=== PATIENT | male | born 1960 | race Caucasian/White ===

== ENCOUNTER 2018-02-13 14:05 | Inpatient (IN) | payer BC, MEDICARE ==
[2018-02-13] MEDS ORDERED: MORPHINE SULFATE 4 MG/ML SYRINGE IVP STA ×2 (14:38→16:13)
--- NOTE | 2018-02-13 14:44 | ED ---
General Adult HPI - General Chief complaint: Fall Stated complaint: fall Time Seen by Provider: 02/13/18 14:21 Source: patient, RN notes reviewed, old records reviewed Mode of arrival: ambulatory Limitations: no limitations - History of Present Illness Initial comments: 58-year-old male with history of previous CVA with residual left-sided weakness presents status post fall. Patient was transferred without assistance and fall onto his left knee. Complains of left knee pain and left hip pain. He did hit his head. He is not on any anticoagulation. He takes a daily aspirin. There was no loss consciousness. No neck pain. No chest pain or abdominal pain. - Related Data Home Medications Medication Instructions Recorded Confirmed Ammonium Lactate Lotion 1 applic TOPICAL DAILY 11/11/15 02/13/18 [Lac-Hydrin 12% Lotion] Aspirin 325 mg PO DAILY 11/11/15 02/13/18 Ergocalciferol [Vitamin D2 50,000 unit PO TH 11/11/15 02/13/18 (DRISDOL)] Lisinopril [Zestril] 20 mg PO QAM 11/11/15 02/13/18 Magnesium Hydroxide [Milk of 2,400 mg PO DAILY PRN 11/11/15 02/13/18 Magnesia] Meclizine [Antivert] 12.5 mg PO TID PRN 11/11/15 02/13/18 Polyethylene Glycol 3350 [Miralax] 17 gm PO DAILY PRN 11/11/15 02/13/18 Pravastatin Sodium [Pravachol] 40 mg PO HS@2100 11/11/15 02/13/18 Tamsulosin [Flomax] 0.4 mg PO HS 11/11/15 02/13/18 Venlafaxine HCl [Effexor] 37.5 mg PO BID 11/11/15 02/13/18 Acetaminophen Tab [Tylenol Tab] 650 mg PO Q6H PRN 03/24/16 02/13/18 cloNIDine HCL [Catapres] 0.1 mg PO TID PRN 03/24/16 02/13/18 Aloe Lax 1 cap PO DAILY 02/13/18 02/13/18 Aloe Lax 1 cap PO HS PRN 02/13/18 02/13/18 Bisacodyl 5 mg PO TID PRN 02/13/18 02/13/18 Ondansetron HCl [Zofran] 4 mg PO Q6H PRN 02/13/18 02/13/18 Previous Rx's Medication Instructions Recorded Labetalol [Trandate] 300 mg PO BID tab 11/17/15 amLODIPine [Norvasc] 5 mg PO DAILY tab 11/17/15 hydrALAZINE HCL [Apresoline] 50 mg PO TID tab 11/17/15 Allergies Allergy/AdvReac Type Severity Reaction Status Date / Time cashew nut Allergy Unknown Verified 02/13/18 14:34 shellfish derived [Shellfish] Allergy Unknown Verified 02/13/18 14:34 Review of Systems ROS Statement: Those systems with pertinent positive or pertinent negative responses have been documented in the HPI. ROS Other: All systems not noted in ROS Statement are negative. Past Medical History Past Medical History: Asthma, CVA/TIA, Hyperlipidemia, Hypertension Additional Past Medical History / Comment(s): periperal neroupathy marko LE, retinoneuropathy, urine retention, residual to the lt. side, HAS LT FOOT ORTHOTIC/BRACE History of Any Multi-Drug Resistant Organisms: None Reported Past Surgical History: Orthopedic Surgery, Tonsillectomy Additional Past Surgical History / Comment(s): toes amputated rt. foot, cyctoscopy Past Anesthesia/Blood Transfusion Reactions: No Reported Reaction Past Psychological History: No Psychological Hx Reported Smoking Status: Never smoker Past Alcohol Use History: None Reported Past Drug Use History: None Reported - Past Family History Father Family Medical History: Cancer Additional Family Medical History / Comment(s): LEUKEMIA Mother Family Medical History: CVA/TIA, Diabetes Mellitus, Hypertension General Exam Limitations: no limitations General appearance: alert, in no apparent distress Head exam: Present: atraumatic, normocephalic Eye exam: Present: normal appearance, PERRL Neck exam: Present: normal inspection. Absent: tenderness, meningismus Respiratory exam: Present: normal lung sounds bilaterally. Absent: respiratory distress, wheezes Cardiovascular Exam: Present: regular rate, normal rhythm GI/Abdominal exam: Present: soft. Absent: distended, tenderness, guarding Extremities exam: Present: other (Left knee effusion, abrasion on the anterior surface. No deformity. Contraction of the left leg and left arm status post CVA) Psychiatric exam: Present: normal affect, normal mood Skin exam: Present: warm, dry. Absent: cyanosis, diaphoretic Course Vital Signs 02/13/18 02/13/18 14:10 15:47 Temperature 99.2 F Pulse Rate 73 70 Respiratory 16 18 Rate Blood Pressure 134/84 135/76 O2 Sat by Pulse 94 L Oximetry Medical Decision Making - Medical Decision Making 58-year-old male with fall, x-ray reveals a left subcapital fracture. Case discussed with orthopedics, patient will be admitted for evaluation. Internal medicine placed on consult for medical clearance. Preoperative laboratory studies will be obtained, these are pending. - Lab Data Result diagrams: 02/13/18 16:31 02/13/18 16:31 Lab Results 02/13/18 02/13/18 02/13/18 Range/Units 16:31 16:31 16:31 WBC 14.4 H (3.8-10.6) k/uL RBC 4.40 (4.30-5.90) m/uL Hgb 12.8 L (13.0-17.5) gm/dL Hct 38.8 L (39.0-53.0) % MCV 88.1 (80.0-100.0) fL MCH 29.0 (25.0-35.0) pg MCHC 32.9 (31.0-37.0) g/dL RDW 13.6 (11.5-15.5) % Plt Count 196 (150-450) k/uL Neutrophils % 90 % Lymphocytes % 5 % Monocytes % 4 % Eosinophils % 1 % Basophils % 0 % Neutrophils # 12.9 H (1.3-7.7) k/uL Lymphocytes # 0.7 L (1.0-4.8) k/uL Monocytes # 0.6 (0-1.0) k/uL Eosinophils # 0.1 (0-0.7) k/uL Basophils # 0.0 (0-0.2) k/uL PT 10.7 (9.0-12.0) sec INR 1.1 (<1.2) APTT 25.0 (22.0-30.0) sec Sodium 140 (137-145) mmol/L Potassium 4.4 (3.5-5.1) mmol/L Chloride 105 (98-107) mmol/L Carbon Dioxide 27 (22-30) mmol/L Anion Gap 8 mmol/L BUN 24 H (9-20) mg/dL Creatinine 1.22 (0.66-1.25) mg/dL Est GFR (CKD-EPI)AfAm 74 (>60 ml/min/1.73 sqM) Est GFR (CKD-EPI)NonAf 64 (>60 ml/min/1.73 sqM) Glucose 88 (74-99) mg/dL Calcium 9.5 (8.4-10.2) mg/dL Total Bilirubin 1.0 (0.2-1.3) mg/dL AST 62 H (17-59) U/L ALT 43 (21-72) U/L Alkaline Phosphatase 103 (38-126) U/L Total Protein 6.9 (6.3-8.2) g/dL Albumin 3.6 (3.5-5.0) g/dL Disposition Clinical Impression: Fall, Subcapital fracture of left hip Disposition: ADMITTED IP TO THIS [facility] Condition: Stable Is patient prescribed a controlled substance at d/c from ED?: No Referrals: Fredo Adorno MD [Primary Care Provider] - 1-2 days Decision to Admit Reason: Admit from EC Decision Date: 02/13/18 Decision Time: 17:12
--- NOTE | 2018-02-13 15:38 | XR ---
EXAMINATION TYPE: XR Hip LT and AP Pelvis DATE OF EXAM: 02/13/2018 COMPARISON: None HISTORY: Fall, pain TECHNIQUE: AP pelvis and 2 views left hip FINDINGS: There is a subcapital fracture of the left hip. Femoral heads articulate with the acetabulum. Cam deformity is present on the right. The pelvis appea rs intact. Symphysis pubis and sacroiliac joints are normal. IMPRESSION: 1. Subcapital fracture left hip
--- NOTE | 2018-02-13 15:40 | XR ---
EXAMINATION TYPE: XR knee complete LT DATE OF EXAM: 02/13/2018 COMPARISON: None HISTORY: Fall, pain TECHNIQUE: Three-view left knee FINDINGS: There is loss of joint space of the medial lateral compartment joint spaces. Some erosion a long the lateral tibial plateau may be present. Structures are somewhat osteopenic mandible moth-eate n appearance. Joint effusion is not identified. Superficial soft tissue swelling is present. IMPRESSION: 1. Advanced osteoarthritic degenerative change. 2. Osteopenia versus infiltrative process through the marrow. Follow-up is recommended.
--- NOTE | 2018-02-13 15:53 | CT ---
EXAMINATION TYPE: CT brain cspine wo con DATE OF EXAM: 02/13/2018 COMPARISON: CT brain November 11, 2015 HISTORY: Fall injury today with possible headache and neck pain. CT DLP: 1247.5 mGycm. Automated Exposure Control for Dose Reduction was Utilized. TECHNIQUE: CT scan of the head and cervical spine are performed without contrast. FINDINGS: There is no acute intracranial hemorrhage or midline shift identified. There is ventricul ar and sulcal prominence consistent with diffuse cerebral atrophy. There is low-attenuation in the d eep and periventricular white matter consistent with product of chronic small vessel ischemic change. There is persistent hyperdense material filling visualized portion of right maxillary sinus similar to prior. There is interval improvement in remainder paranasal sinus disease from prior study however . Patchy opacity in the posterior aspect bilateral mastoid air cells is new from prior. Cervical spine is visualized in its entirety from C1 through upper thoracic levels and demonstrates s light levoconvex scoliotic curvature coronal images without evidence of acute fracture or dislocation . Demineralization is present. Prevertebral soft tissue appears within normal limits. The C1-C2 vinny culation is within normal limits on the coronal images. Vertebral body heights are maintained. There is mild to moderate multilevel disc space narrowing find ings most prominent at C5-C6 and C6-C7 levels. Posterior spur disc complexes are effacing anterior th ecal sac at these levels on sagittal and axial images. Review of axial images shows marginal spurring and uncovertebral facet degenerative changes contributing to multifocal moderate neural foraminal na rrowing. There is moderate to severe calcified plaque right carotid bulb extending into proximal inte rnal carotid artery and mild calcified plaque in the left internal carotid artery. Thyroid gland is n ormal in size. Motion artifact degradation lung apices is noted. IMPRESSION: 1. There is no acute fracture or dislocation evident in the cervical spine. 2. No acute intracranial hemorrhage or midline shift is seen. Possible bilateral mastoiditis, correla te clinically
[2018-02-13 16:57] LABS: Basophils % (A) 0 %; Eosinophils # (A) 0.1 k/uL (0-0.7); Eosinophils % (A) 1 %; HCT 38.8 % (39.0-53.0); HGB 12.8 gm/dL (13.0-17.5); Lymphocytes # (A) 0.7 k/uL (1.0-4.8); Lymphocytes % (A) 5 %; MCHC 32.9 g/dL (31.0-37.0); MCV 88.1 fL (80.0-100.0); Mean Platelet Volume 6.5; Monocytes # (A) 0.6 k/uL (0-1.0); Monocytes % (A) 4 %; Neutrophils # (A) 12.9 k/uL (1.3-7.7); Neutrophils % (A) 90 %; Platelet Count 196 k/uL (150-450); RDW 13.6 % (11.5-15.5); WBC 14.4 k/uL (3.8-10.6)
[2018-02-13 17:01] LABS: INR 1.1 (<1.2); Prothrombin Time 10.7 sec (9.0-12.0)
[2018-02-13 17:02] LABS: Albumin 3.6 g/dL (3.5-5.0); Calcium 9.5 mg/dL (8.4-10.2); Potassium 4.4 mmol/L (3.5-5.1); Total Protein 6.9 g/dL (6.3-8.2)
[2018-02-13] MEDS ORDERED: NALOXONE 0.4 MG/ML 1 ML VIAL IV PRN (17:09)
[2018-02-13] MEDS: SODIUM CHLORIDE 0.9% 1,000 ML IV SCH (19:49)
[2018-02-13] MEDS: MORPHINE SULFATE 4 MG/ML SYRINGE IV PRN (20:36)
[2018-02-13] MEDS ORDERED: ACETAMINOPHEN TAB 325 MG TAB PO PRN (21:24)
[2018-02-13] MEDS ORDERED: MECLIZINE 12.5 MG TAB PO PRN (21:24)
[2018-02-13] MEDS ORDERED: cloNIDine HCL 0.1 MG TAB PO PRN (21:24)
[2018-02-13] MEDS ORDERED: ONDANSETRON 4 MG TAB PO PRN (21:24)
[2018-02-13] MEDS ORDERED: POLYETHYLENE GLYCOL 3350 17 GM POWD.PACK PO PRN (21:24)
[2018-02-13] MEDS: LABETALOL 100 MG TAB PO SCH (21:52)
[2018-02-13] MEDS: TAMSULOSIN 0.4 MG CAP.ER.24H PO SCH (21:52)
[2018-02-13] MEDS: hydrALAZINE HCL 50 MG TAB PO SCH (21:52)
[2018-02-13] MEDS: VENLAFAXINE HCL 37.5 MG TAB PO SCH (21:52)
[2018-02-14] MEDS: MORPHINE SULFATE 4 MG/ML SYRINGE IV PRN ×3 (03:16→10:58)
[2018-02-14] MEDS: SODIUM CHLORIDE 0.9% 1,000 ML IV SCH ×2 (07:39→21:01)
[2018-02-14] MEDS: VENLAFAXINE HCL 37.5 MG TAB PO SCH ×2 (07:41→22:17)
[2018-02-14] MEDS: LABETALOL 100 MG TAB PO SCH ×2 (07:41→21:02)
[2018-02-14] MEDS: LISINOPRIL 20 MG TAB PO SCH (07:42)
[2018-02-14] MEDS: amLODIPine 5 MG TAB PO SCH (07:42)
--- NOTE | 2018-02-14 08:46 | P.HPOR ---
History of Present Illness H&P Date: 02/14/18 This is a 58 year-old male who has a past medical history significant for CVA with left-sided weakness. Family is present at bedside. Patient states that he fell while transferring yesterday. Patient's family states that he usually has a caregiver transfer him, but has been trying to transfer by himself lately. The patient's family states that he has 24-hour care at home. Patient denies any head injury or loss of conciousness. Patient is not on any anticoagulation. Patient's past medical history is significant for asthma, hypertension and hyperlipidemia. Patient denies any fever/chills, shortness of breath, chest pain or abdominal pain. Review of Systems See HPI. Past Medical History Past Medical History: Asthma, CVA/TIA, Hyperlipidemia, Hypertension Additional Past Medical History / Comment(s): periperal neroupathy marko LE, retinoneuropathy, urine retention, residual to the lt. side, HAS LT FOOT ORTHOTIC/BRACE History of Any Multi-Drug Resistant Organisms: None Reported Past Surgical History: Orthopedic Surgery, Tonsillectomy Additional Past Surgical History / Comment(s): toes amputated rt. 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 [employer] Smoking Status: Never smoker Past Alcohol Use History: None Reported Past Drug Use History: None Reported - Past Family History Father Family Medical History: Cancer Additional Family Medical History / Comment(s): LEUKEMIA Mother Family Medical History: CVA/TIA, Diabetes Mellitus, Hypertension Medications and Allergies Home Medications Medication Instructions Recorded Confirmed Type Ammonium Lactate Lotion 1 applic TOPICAL DAILY 11/11/15 02/13/18 History [Lac-Hydrin 12% Lotion] Aspirin 325 mg PO DAILY 11/11/15 02/13/18 History Ergocalciferol [Vitamin D2 50,000 unit PO TH 11/11/15 02/13/18 History (DRISDOL)] Lisinopril [Zestril] 20 mg PO QAM 11/11/15 02/13/18 History Magnesium Hydroxide [Milk of 2,400 mg PO DAILY PRN 11/11/15 02/13/18 History Magnesia] Meclizine [Antivert] 12.5 mg PO TID PRN 11/11/15 02/13/18 History Polyethylene Glycol 3350 [Miralax] 17 gm PO DAILY PRN 11/11/15 02/13/18 History Pravastatin Sodium [Pravachol] 40 mg PO HS@2100 11/11/15 02/13/18 History Tamsulosin [Flomax] 0.4 mg PO HS 11/11/15 02/13/18 History Venlafaxine HCl [Effexor] 37.5 mg PO BID 11/11/15 02/13/18 History Labetalol [Trandate] 300 mg PO BID tab 11/17/15 02/13/18 Rx amLODIPine [Norvasc] 5 mg PO DAILY tab 11/17/15 02/13/18 Rx hydrALAZINE HCL [Apresoline] 50 mg PO TID tab 11/17/15 02/13/18 Rx Acetaminophen Tab [Tylenol Tab] 650 mg PO Q6H PRN 03/24/16 02/13/18 History cloNIDine HCL [Catapres] 0.1 mg PO TID PRN 03/24/16 02/13/18 History Aloe Lax 1 cap PO DAILY 02/13/18 02/13/18 History Aloe Lax 1 cap PO HS PRN 02/13/18 02/13/18 History Bisacodyl 5 mg PO TID PRN 02/13/18 02/13/18 History Ondansetron HCl [Zofran] 4 mg PO Q6H PRN 02/13/18 02/13/18 History Allergies Allergy/AdvReac Type Severity Reaction Status Date / Time cashew nut Allergy Unknown Verified 02/13/18 14:34 shellfish derived [Shellfish] Allergy Unknown Verified 02/13/18 14:34 Physical Examination On exam patient is lying comfortably in bed in no acute distress. The left lower extremity is shortened and externally rotated. Skin is intact. There is no erythema or ecchymosis. Calf is soft and nontender to palpation. Dorsalis pedis pulses 2+. Left lower extremity is warm and well perfused. Head is normocephalic and atraumatic. Exams of bilateral upper extremties and right lower extremity are within normal limits. Results X-rays of the left hip and pelvis show a displaced subcapital fracture of the left femur. - Labs Labs: Abnormal Lab Results - Last 24 Hours (Table) 02/13/18 02/13/18 Range/Units 16:31 16:31 WBC 14.4 H (3.8-10.6) k/uL Hgb 12.8 L (13.0-17.5) gm/dL Hct 38.8 L (39.0-53.0) % Neutrophils # 12.9 H (1.3-7.7) k/uL Lymphocytes # 0.7 L (1.0-4.8) k/uL BUN 24 H (9-20) mg/dL AST 62 H (17-59) U/L H & H 02/13/18 Range/Units 16:31 Hgb 12.8 L (13.0-17.5) gm/dL Hct 38.8 L (39.0-53.0) % Coagulation 02/13/18 Range/Units 16:31 INR 1.1 (<1.2) Result Diagrams: 02/13/18 16:31 02/13/18 16:31 Assessment and Plan Assessment: Asthma CVA with left hemiparesis Hyperlipidemia Hypertension (1) Fall Current Visit: Yes Status: Acute Code(s): W19.XXXA - UNSPECIFIED FALL, INITIAL ENCOUNTER SNOMED Code(s): 2592997 (2) Subcapital fracture of left hip Current Visit: Yes Status: Acute Code(s): S72.012A - UNSP INTRACAPSULAR FRACTURE OF LEFT FEMUR, INIT FOR CLOS FX SNOMED Code(s): 091312163 Plan: 1. Rest and ice the left hip. 2. Continue pain control. 3. NPO. 4. Left hip hemiarthroplasty scheduled for today pending medical clearance and consent.
[2018-02-14] MEDS: hydrALAZINE HCL 50 MG TAB PO SCH ×3 (10:30→22:16)
--- NOTE | 2018-02-14 11:57 | P.CONS ---
History of Present Illness - Reason for Consult Consult date: 02/14/18 Medical clearance for orthopedic surgery - History of Present Illness This is a 58-year-old male patient of Dr. Adorno with past medical history of stroke approximately 4 years ago with residual left-sided weakness, hypertension, hyperlipidemia, benign prostatic hypertrophy, depression. He also has history of diabetes in the past but due to he lost does not require treatment. Patient has paid caregivers 24 hours a day and usually requires assistance in transfers the patient has been trying to do these on his own without waiting for help. He was transferring from bed to the wheelchair and is now following landing on his left hip and patient was transferred to [facility] emergency center for evaluation. X-ray of left knee showed advanced osteoarthritic degenerative changes. Osteopenia versus infiltrative process in the marrow. CAT scan of the brain and cervical spine reveals no acute fracture dislocation evident cervical spine. No acute intracranial hemorrhage or midline shift. Possible bilateral mastoiditis. X-ray of the left hip and pelvis show subcapital fracture left hip. White count 14.4, hemoglobin 12.8. BUN 24 and creatinine 1.22, blood sugar 88. Patient was admitted to the [facility] floor under the care of orthopedics with plan for left hip hemiarthroplasty today. Patient denies any chest pain, shortness of breath , and nausea or vomiting. There is no loss of consciousness with fall. Review of Systems All systems: negative Constitutional: Denies chills, Denies fever, Denies lethargy, Denies malaise, Denies poor appetite, Denies weight loss Eyes: denies blurred vision, denies pain Ears, nose, mouth and throat: Denies dysphagia, Denies headache, Denies hoarseness, Denies sore throat, Denies vertigo Cardiovascular: Denies chest pain, Denies decreased exercise tolerance, Denies dyspnea on exertion, Denies shortness of breath Respiratory: Denies cough, Denies dyspnea, Denies excessive sputum, Denies hemoptysis, Denies home oxygen, Denies wheezing Gastrointestinal: Denies abdominal pain, Denies diarrhea, Denies loss of appetite, Denies melena, Denies nausea, Denies vomiting Genitourinary: Denies dysuria Musculoskeletal: Reports frequent falls, Reports gait dysfunction, Reports muscle weakness, Denies myalgias Integumentary: Denies pruritus, Denies rash, Denies wounds Neurological: Reports gait dysfunction, Denies change in mentation, Denies confusion, Denies numbness, Denies weakness Psychiatric: Denies anxiety, Denies depression Endocrine: Denies fatigue, Denies weight change Past Medical History Past Medical History: CVA/TIA, Hyperlipidemia, Hypertension Additional Past Medical History / Comment(s): periperal neroupathy marko LE, retinoneuropathy, urine retention, residual to the lt. 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 [employer] Smoking Status: Never smoker Past Alcohol Use History: None Reported Additional Past Alcohol Use History / Comment(s): Patient is a lifelong nonsmoker. He denies any marijuana, street drug use or alcohol use. He is does not have any children. 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 He currently has [address] Past Drug Use History: None Reported - Past Family History Father Family Medical History: Cancer Additional Family Medical History / Comment(s): Father at age 41 from leukemia. Mother Family Medical History: CVA/TIA, Diabetes Mellitus, Hypertension Additional Family Medical History / Comment(s): Mother in her 70s from pneumonia. Sister(s) Additional Family Medical History / Comment(s): Patient has 2 sisters with no major medical problems. Patient does not have any brothers, no children. Medications and Allergies Home Medications Medication Instructions Recorded Confirmed Type Ammonium Lactate Lotion 1 applic TOPICAL DAILY 11/11/15 02/13/18 History [Lac-Hydrin 12% Lotion] Aspirin 325 mg PO DAILY 11/11/15 02/13/18 History Ergocalciferol [Vitamin D2 50,000 unit PO TH 11/11/15 02/13/18 History (DRISDOL)] Lisinopril [Zestril] 20 mg PO QAM 11/11/15 02/13/18 History Magnesium Hydroxide [Milk of 2,400 mg PO DAILY PRN 11/11/15 02/13/18 History Magnesia] Meclizine [Antivert] 12.5 mg PO TID PRN 11/11/15 02/13/18 History Polyethylene Glycol 3350 [Miralax] 17 gm PO DAILY PRN 11/11/15 02/13/18 History Pravastatin Sodium [Pravachol] 40 mg PO HS@2100 11/11/15 02/13/18 History Tamsulosin [Flomax] 0.4 mg PO HS 11/11/15 02/13/18 History Venlafaxine HCl [Effexor] 37.5 mg PO BID 11/11/15 02/13/18 History Labetalol [Trandate] 300 mg PO BID tab 11/17/15 02/13/18 Rx amLODIPine [Norvasc] 5 mg PO DAILY tab 11/17/15 02/13/18 Rx hydrALAZINE HCL [Apresoline] 50 mg PO TID tab 11/17/15 02/13/18 Rx Acetaminophen Tab [Tylenol Tab] 650 mg PO Q6H PRN 03/24/16 02/13/18 History cloNIDine HCL [Catapres] 0.1 mg PO TID PRN 03/24/16 02/13/18 History Aloe Lax 1 cap PO DAILY 02/13/18 02/13/18 History Aloe Lax 1 cap PO HS PRN 02/13/18 02/13/18 History Bisacodyl 5 mg PO TID PRN 02/13/18 02/13/18 History Ondansetron HCl [Zofran] 4 mg PO Q6H PRN 02/13/18 02/13/18 History Allergies Allergy/AdvReac Type Severity Reaction Status Date / Time cashew nut Allergy Unknown Verified 02/13/18 14:34 shellfish derived [Shellfish] Allergy Unknown Verified 02/13/18 14:34 Physical Exam Vitals: Vital Signs Temp Pulse Pulse Resp BP BP Pulse Ox 02/14/18 07:00 98.1 F 77 16 113/70 95 02/14/18 00:27 97.6 F 70 16 128/75 91 L 02/13/18 20:00 98.2 F 70 18 132/83 97 02/13/18 18:06 97.2 F L 18 97 02/13/18 17:51 99.2 F 76 18 117/63 93 L 02/13/18 17:29 76 18 117/63 93 L 02/13/18 15:47 70 18 135/76 94 L 02/13/18 14:10 99.2 F 73 16 134/84 Intake and Output 02/13/18 02/14/18 02/14/18 22:59 06:59 14:59 Intake Total 250 675 Balance 250 675 Intake: Amount of Fluid Infused ( 250 ml) Intake, IV Titration 675 Amount Sodium Chloride 0.9% 1, 675 000 ml @ 75 mls/hr IV . [id number] RAFFY Rx#:[id number] Other: Voiding Method Urinal Urinal # Voids 1 3 Gen: This is a 67-year-old male. He is in bed and appears to be comfortable and in no acute distress. HEENT: Head is atraumatic, normocephalic. Pupils equal, round. Sclerae is anicteric. NECK: Supple. No JVD. No lymphadenopathy. No thyromegaly. LUNGS: Clear to auscultation. No wheezes or rhonchi. No intercostal retractions. HEART: Regular rate and rhythm. No murmur. ABDOMEN: Soft. Bowel sounds are present. No masses. No tenderness. EXTREMITIES: The patient is on his back with both knees bent. Dorsalis pedis palpable bilaterally. NEUROLOGICAL: Patient is awake, alert and oriented x3. Weakness noted to the left upper and lower extremities. Results CBC & Chem 7: 02/13/18 16:31 02/13/18 16:31 Labs: Abnormal Lab Results - Last 24 Hours (Table) 02/13/18 02/13/18 Range/Units 16:31 16:31 WBC 14.4 H (3.8-10.6) k/uL Hgb 12.8 L (13.0-17.5) gm/dL Hct 38.8 L (39.0-53.0) % Neutrophils # 12.9 H (1.3-7.7) k/uL Lymphocytes # 0.7 L (1.0-4.8) k/uL BUN 24 H (9-20) mg/dL AST 62 H (17-59) U/L Assessment and Plan Plan: 1. Acute subcapital fracture left hip with only minimal trauma most likely pathologic due to osteopenia. Orthopedics is planning for a left hemiarthroplasty today. Patient is cleared medically for surgical intervention. Continue pain management, incentive spirometry to reduce incidence of atelectasis and hospital-acquired pneumonia. 2. Hypertension. Continue Norvasc 5 mg daily, Catapres as needed, hydralazine 50 mg 3 times daily, labetalol 300 mg twice daily, lisinopril 20 mg daily. 3. Hyperlipidemia. Continue pravastatin 40 mg at bedtime. 4. History of stroke with residual left-sided weakness. Patient is only on aspirin 325 mg for this. 5. Benign prostatic hypertrophy. Continue Flomax 0.4 mg at bedtime. 6. Chronic constipation. Continue MiraLAX. 7. DVT prophylaxis to be determined by orthopedics. 8. GI prophylaxis. Pepcid. Patient will be admitted to the hospital for a minimum of 2 night stay. Discharge plan: To be determined Impression and plan of care have been directed as dictated by the signing physician. Anila Mcconnell nurse practitioner acting as scribe for signing physician.
[2018-02-14] MEDS ORDERED: IV FLUID CONTINUATION 150 ML IV ONE (13:53)
[2018-02-14] MEDS ORDERED: MORPHINE SULFATE 4 MG/ML SYRINGE IVP ONE (14:25)
[2018-02-14] MEDS ORDERED: PROPOFOL 10 MG/ML 20 ML VIAL IV ONE (14:55)
[2018-02-14] MEDS ORDERED: TRANEXAMIC ACID 1,000 MG/10 ML VIAL ONE (14:55)
[2018-02-14] MEDS ORDERED: SUCCINYLCHOLINE CHLORIDE 100 MG/5 ML SYR IV ONE (14:55)
[2018-02-14] MEDS ORDERED: GLYCOPYRROLATE 0.2 MG/ML 2 ML VIAL ONE (14:55)
[2018-02-14] MEDS ORDERED: ePHEDrine SULFATE/0.9% NACL/PF 50 MG/5 ML SYRINGE IV ONE (14:55)
[2018-02-14] MEDS ORDERED: fentaNYL (PF) 50 MCG/ML 2 ML AMP ONE (14:55)
[2018-02-14] MEDS ORDERED: ROCURONIUM BROMIDE 10 MG/ML 10 ML VIAL IV ONE (14:55)
[2018-02-14] MEDS ORDERED: PHENYLEPHRINE-0.9% NACL SYG 1 MG/10 ML SYRINGE ONE (14:55)
[2018-02-14] MEDS ORDERED: ONDANSETRON 4 MG/2 ML VIAL ONE (14:55)
[2018-02-14] MEDS ORDERED: LIDOCAINE 1% INJ 10MG/ML (20 ML MDV) ONE (14:55)
[2018-02-14] MEDS ORDERED: MIDAZOLAM 2 MG/2 ML VIAL ONE (14:55)
[2018-02-14] MEDS ORDERED: SODIUM CHLORIDE 0.9% 100 ML BAG ONE (14:55)
[2018-02-14] MEDS ORDERED: SODIUM CHLORIDE 0.9% 100 ML with ceFAZolin 2,000 MG IV ONE ×2 (15:08)
[2018-02-14] MEDS ORDERED: LACTATED RINGERS 1,000 ML IV ONE ×3 (15:08→18:09)
[2018-02-14] MEDS ORDERED: TRANEXAMIC ACID 1,000 MG in SODIUM CHLORIDE 0.9% 50 ML IVPB ONE ×4 (15:45)
[2018-02-14] MEDS ORDERED: ceFAZolin 3,000 MG in SODIUM CHLORIDE 0.9% IRRIGATIO 3,000 ML IRRIGATION ONE (15:46)
--- NOTE | 2018-02-14 17:14 | P.OP ---
Date of Procedure: 02/14/18 Procedure(s) Performed: PREOPERATIVE DIAGNOSIS: Left hip femoral neck displaced fracture and greater trochanteric comminuted displaced fracture POSTOPERATIVE DIAGNOSIS: Left hip femoral neck displaced fracture and greater trochanteric comminuted displaced fracture OPERATION: 1. Left hip cemented unipolar hemiarthroplasty. 2. Open reduction and internal fixation greater trochanter fracture, suture fixation ANESTHESIA: Spinal ESTIMATED BLOOD LOSS: 200 ml. [employer]: Catalina Gambino PA-C (assistance with: patient positioning, retraction, exposure, hemostasis, leg positioning, implantation, irrigation, closure, dressing) COMPLICATIONS: None apparent. COMPONENTS IMPLANTED: Shaunna LDFx cemented femoral stem; unipolar femoral head; neck extension augments as needed. INDICATIONS: Drew is a 58 year old male with a history of falling and sustaining a femoral neck fracture and a comminuted greater trochanteric fracture. He has multiple medical problems including a history of stroke affecting his left side. He is basically a non-ambulator. I have recommended surgical treatment with a cemented unipolar hemiarthroplasty. I have discussed this procedure in detail and explained the potential risks and complications as being inclusive of, but not limited to: Bleeding, infection, scarring, discomfort, blood vessel and/or nerve damage, limb length inequality, gait disturbance, blood clot, pulmonary embolism, , and other risks. The consent form has been signed. PROCEDURE: After appropriate consent was obtained, the patient was taken to the operating room and placed in supine position. [] anesthetic was administered and after confirmation of adequate anesthesia, the patient was placed into the lateral decubitus position with the affected side up. Care was taken to make sure that all pressure points were adequately padded and a Giovanni hip positioner was utilized for positioning. The hip was prepped and draped in the usual aseptic fashion using a combination of Chloraprep and alcohol. Ioban drape was used for the case and the patient received intravenous antibiotics prior to the incision. The incision was created directly over the greater trochanter and carried slightly posteriorly for a posterior approach to the hip. The incision was then deepened down to subcutaneous tissue and fascia saul. Fascia saul was split in line with the incision and split proximally along the fibers of the gluteus josephine. The underlying fibers of the muscle were teased apart using finger dissection and bleeding vessels were picked up and coagulated. Retractor was then placed posteriorly consisting of a blunt Latia. Note was made of comminuted somewhat displaced greater trochanteric fracture among fairly significant hematoma. The hematoma was removed. Due to the comminution, I did not feel that a claw-type metallic fixation or screw fixation would be adequate area therefore considering this patient's history of non-ambulation, I decided to perform a suture repair at the end of the case of the tendon to the bone. Dissection then proceeded. The short external rotators and capsule were exposed and good visualization of the attachment of the external rotators to the femur was established. The short external rotators and capsule were released using electrocautery from their femoral attachments. A hockey stick shaped incision was created in the capsule. Joint fluid and hemarthrosis was evacuated and the patient's hip was internally rotated to expose the fracture site. The femoral neck cut was created approximately 1 cm superior to the lesser trochanter using a reciprocating saw. The femoral head and neck fragment was removed and visualization and palpation of the acetabular vault showed intact hyaline cartilage with no bone exposure or significant degeneration. Attention was then directed back to the proximal femur. Retractors were placed around the proximal femur and box osteotome was used followed by canal finder and trochanteric reamer. Cylindrical reaming was performed. Progressive broaching was then performed starting with a #10 broach and progressing final size, in a position of 10-15 degrees anteversion. [place] anteversion was within 5 degrees of stem position. The final size broach had excellent fit and fill of the patient's metaphysis and diaphysis. Calcar planing was performed. Trial reduction was then performed starting with appropriately sized femoral head and various neck extensions to evaluate stability, limb length equality, and soft tissue tension. Once these parameters were satisfactory, the corresponding final components were then called for. Trial components were removed. The femoral canal was sized for the centralizer and bone plug. Once the bone plug had been inserted distal to the planned length of the femoral component, the canal was pulse lavaged and brushed to remove any unstable bone. It was then dried with a lap sponge. Cement was mixed under vacuum conditions to decrease porosity and inserted into a cement gun. Distal centralizer was placed onto the femoral component with a bit of cement. The cement was allowed to reach a slightly doughy consistency and then the canal was filled retrograde with the cement gun. Thumb pressurization was performed three times. The femoral component was then inserted with the previously determined degree of anteversion. Excess cement was removed before it hardened completely. The femoral head was then impacted onto the Escobar taper. Blood and debris were removed from the acetabular socket and the hip was then reduced and checked for stability, limb length and soft tissue tension. These parameters were found to be satisfactory; the wound was then thoroughly irrigated with normal saline. Repair of the greater trochanteric fracture then proceeded with a combination of through bone #2 FiberWire sutures as well as #2 FiberWire sutures through the tendon just proximal to its bony attachment on the greater tuberosity and through the bone of the greater trochanter on the distal side. Fairly good approximation of the fragments was accomplished with approximately 4 sutures. Irricept irrigation was used. Final hemostasis was obtained using electrocautery and IV tranexamic acid, 1 gram prior to incision and another 1 gram at the start of closure. Closure of the capsule was performed meticulously using #3 Vicryl suture. Four [id number] sutures were placed in the posterior capsule along with repair of the external rotators. The fascia saul was then repaired using combination of #3 Vicryl suture in interrupted fashion and Quill and running fashion. 2-0 Vicryl suture was used for the subcutaneous tissues and 3-0 Quill for the skin. Dermabond or Steri-Strips were then applied. The patient tolerated the procedure well. There were no complications and the wound bed was dry and there was no need for drain placement. Sterile dressing was then applied and the patient was carefully removed from the operating room table, placed on the stretcher and was taken to the recovery room in stable condition. Sponge and needle counts were correct.
[2018-02-14] MEDS ORDERED: ONDANSETRON 4 MG/2 ML VIAL IVP PRN (17:24)
[2018-02-14] MEDS ORDERED: HYDROmorphone 1 MG/ML 1 ML SYRINGE IVP PRN ×3 (17:24)
[2018-02-14] MEDS ORDERED: NALOXONE 0.4 MG/ML 1 ML VIAL IV PRN (17:24)
[2018-02-14] MEDS ORDERED: MAGNESIUM HYDROXIDE 2,400 MG/10 ML CUP PO PRN (17:24)
[2018-02-14] MEDS ORDERED: WARFARIN 5 MG TAB PO ONE (18:00)
--- NOTE | 2018-02-14 18:35 | XR ---
EXAMINATION TYPE: XR Hip Limited LT DATE OF EXAM: 02/14/2018 COMPARISON: 02/13/2018 HISTORY: Left hip surgery TECHNIQUE: Single view FINDINGS: There is a new left hip prosthesis. Components appear in anatomic position. IMPRESSION: No complicating process seen.
[2018-02-14] MEDS ORDERED: DEXTROSE 50%-WATER 50 ML SYRINGE IVP ONE (18:54)
[2018-02-14 19:00] LABS: Glucose,Whole Blood 81 mg/dL (75-99)
[2018-02-14 19:30] LABS: Basophils # (A) 0.1 k/uL (0-0.2); Basophils % (A) 0 %; Eosinophils # (A) 0.5 k/uL (0-0.7); Eosinophils % (A) 4 %; HCT 33.2 % (39.0-53.0); Lymphocytes # (A) 0.7 k/uL (1.0-4.8); Lymphocytes % (A) 6 %; MCV 91.1 fL (80.0-100.0); Mean Platelet Volume 6.4; Monocytes # (A) 0.5 k/uL (0-1.0); Monocytes % (A) 4 %; Neutrophils # (A) 11.1 k/uL (1.3-7.7); Neutrophils % (A) 86 %; Platelet Count 176 k/uL (150-450); RBC 3.65 m/uL (4.30-5.90); RDW 13.9 % (11.5-15.5); WBC 12.9 k/uL (3.8-10.6)
--- NOTE | 2018-02-14 19:39 | XR ---
EXAMINATION TYPE: XR chest 1V DATE OF EXAM: 02/14/2018 COMPARISON: 11/11/2015 HISTORY: Postop. Short of breath TECHNIQUE: Single frontal view of the chest is obtained. FINDINGS: There is no heart failure nor confluent pneumonic infiltrate. Costophrenic angles are baltazar r. Heart size is normal. There are chest leads. Bony thorax appears intact. IMPRESSION: No active cardiopulmonary disease. No change.
[2018-02-14 19:54] LABS: Glucose,Whole Blood 78 mg/dL (75-99)
[2018-02-14] MEDS: PRAVASTATIN SODIUM 40 MG TAB PO SCH (22:15)
[2018-02-14] MEDS: TAMSULOSIN 0.4 MG CAP.ER.24H PO SCH (22:16)
[2018-02-14] MEDS: SENNOSIDES-DOCUSATE SODIUM 1 EACH TAB PO SCH (22:16)
[2018-02-14] MEDS: ceFAZolin IN SWFI 2 GM/20 ML SYRINGE IVP SCH (23:19)
[2018-02-15] MEDS: HYDROcodone/APAP 5-325MG 1 EACH TAB PO PRN ×4 (04:28→20:44)
[2018-02-15 06:54] LABS: Basophils % (A) 0 %; Eosinophils # (A) 0.4 k/uL (0-0.7); Eosinophils % (A) 4 %; HCT 32.2 % (39.0-53.0); HGB 10.6 gm/dL (13.0-17.5); Lymphocytes # (A) 0.8 k/uL (1.0-4.8); Lymphocytes % (A) 7 %; MCH 30.2 pg (25.0-35.0); MCV 91.5 fL (80.0-100.0); Mean Platelet Volume 6.7; Monocytes # (A) 0.6 k/uL (0-1.0); Monocytes % (A) 5 %; Neutrophils # (A) 8.9 k/uL (1.3-7.7); Neutrophils % (A) 82 %; Platelet Count 133 k/uL (150-450); RBC 3.51 m/uL (4.30-5.90); RDW 13.9 % (11.5-15.5); WBC 10.8 k/uL (3.8-10.6)
[2018-02-15 06:58] LABS: INR 1.3 (<1.2); Prothrombin Time 12.1 sec (9.0-12.0)
[2018-02-15] MEDS: ceFAZolin IN SWFI 2 GM/20 ML SYRINGE IVP SCH (07:42)
[2018-02-15] MEDS: LISINOPRIL 20 MG TAB PO SCH (07:45)
[2018-02-15] MEDS: FAMOTIDINE 20 MG TAB PO SCH (07:45)
--- NOTE | 2018-02-15 08:30 | P.PN ---
Subjective Progress Note Date: 02/15/18 Principal diagnosis: Status post hemiarthroplasty left hip. This is a 58-year-old male admitted for left hip fracture. He has extensive medical history including CVA with left-sided hemiparesis. He is a nonambulator. He lives at home with 24-hour nursing care. He was taken to surgery on 02/14/2018 for hemiarthroplasty of the left hip. The procedures performed without complication. He did have some hypotension intraoperatively and in the recovery room which is now resolved. Patient's doing well on postoperative day #1. he is resting soundly. His mild disabilities teacher is at bedside. Vital signs and labs are stable. Objective - Vital Signs Vital signs: Vital Signs Temp 98.9 F 02/15/18 07:59 Pulse 96 02/15/18 07:59 Resp 18 02/15/18 07:59 BP 131/76 02/15/18 07:59 Pulse Ox 89 L 02/15/18 07:59 Intake & Output 02/14/18 02/15/18 02/15/18 18:59 06:59 18:59 Intake Total 2951 Output Total 200 1405 Balance 2751 -1405 Intake: IV 2951 Output: Urine 1405 Straight 900 Estimated Blood Loss 200 Other: Voiding Method Urinal Urinal Urinal # Voids 1 - Exam This is a pleasant 58-year-old male in no acute distress. He does not communicate during exam. He will not open his eyes during exam. His mild disabilities teacher is a resident at bedside. Exam of the left hip reveals that his incision has no erythema. Dermabond tape is intact with no drainage. Pedal pulse is +1/4. Capillary refill is less than 3 seconds. - Labs CBC & Chem 7: 02/15/18 06:17 02/13/18 16:31 Labs: Abnormal Lab Results - Last 24 Hours (Table) 02/14/18 02/15/18 02/15/18 Range/Units 18:53 06:17 06:17 WBC 12.9 H 10.8 H (3.8-10.6) k/uL RBC 3.65 L 3.51 L (4.30-5.90) m/uL Hgb 11.0 L 10.6 L (13.0-17.5) gm/dL Hct 33.2 L 32.2 L (39.0-53.0) % Plt Count 133 L (150-450) k/uL Neutrophils # 11.1 H 8.9 H (1.3-7.7) k/uL Lymphocytes # 0.7 L 0.8 L (1.0-4.8) k/uL PT 12.1 H (9.0-12.0) sec INR 1.3 H (<1.2) Assessment and Plan (1) History of CVA with residual deficit Current Visit: Yes Status: Acute Code(s): I69.30 - UNSPECIFIED SEQUELAE OF CEREBRAL INFARCTION SNOMED Code(s): 568232020 (2) Fall Current Visit: Yes Status: Acute Code(s): W19.XXXA - UNSPECIFIED FALL, INITIAL ENCOUNTER SNOMED Code(s): 3336391 (3) Subcapital fracture of left hip Current Visit: Yes Status: Acute Code(s): S72.012A - UNSP INTRACAPSULAR FRACTURE OF LEFT FEMUR, INIT FOR CLOS FX SNOMED Code(s): 986323682 (4) H/O ETOH abuse Current Visit: No Status: Acute Code(s): Z87.898 - PERSONAL HISTORY OF OTHER SPECIFIED CONDITIONS SNOMED Code(s): 851768314 (5) Hypotension Current Visit: No Status: Acute Code(s): I95.9 - HYPOTENSION, UNSPECIFIED SNOMED Code(s): 89440908 Plan: The clinical findings are discussed with the patient and his mild disabilities teacher. We will have social work talk to the mild disabilities teacher and family regarding placement postoperatively. He may not be a great rehab candidate since he was unable to transfer himself prior to his fall. He may need extended care. We will continue to follow and plan for discharge when cleared medically and placement arranged.
[2018-02-15] MEDS: amLODIPine 5 MG TAB PO SCH (09:54)
[2018-02-15] MEDS: VENLAFAXINE HCL 37.5 MG TAB PO SCH ×2 (09:54→21:58)
[2018-02-15] MEDS: hydrALAZINE HCL 50 MG TAB PO SCH ×3 (09:54→20:44)
[2018-02-15] MEDS: LABETALOL 100 MG TAB PO SCH ×2 (09:54→20:44)
[2018-02-15] MEDS: SODIUM CHLORIDE 0.9% 1,000 ML IV SCH (11:21)
--- NOTE | 2018-02-15 11:25 | P.CNPUL ---
History of Present Illness Consult date: 02/15/18 Requesting physician: Wilner Montero Reason for consult: hypoxemia Chief complaint: Status post fall with left hip and knee pain History of present illness: This is a pleasant 58-year-old gentleman who has a history of CVA with residual left-sided weakness, hyperlipidemia, hypertension. He had been transferring unassisted and had taken a fall onto his left knee. He presented here with complaints of left knee and left hip pain. No loss of consciousness. No head trauma. CT of the head revealed no acute fracture or dislocation evident in the cervical spine. There is no acute intracranial hemorrhage or midline shift. Left hip x-ray revealed a subcapital fracture. No fracture of the knee. On 02/14/2018 he had undergone an open reduction internal fixation of the greater trochanter fracture. Last evening the patient had issues with hypoxemia and hypotension and an A team was called. He was placed on a Ventimask and his saturations were in the 90s. This was quite transient and the patient recovered. He is seen today in consultation for the same. He is awake and alert in no acute distress. He is currently maintaining O2 saturations in the high 80s low 90s. He's been refusing to wear any oxygen. He denies any shortness of breath, cough or congestion. He did have a T-max of 101.7 axillary. Chest x-ray reveals no acute cardiopulmonary disease. White count 10.8. Hemoglobin 10.6. INR 1.3. He is continued on 0.9 normal saline at 75 ML's per hour. Anticoagulated with warfarin. Review of Systems 14 point review of system was conducted. All negative other than as mentioned in the HPI. Past Medical History Past Medical History: CVA/TIA, Hyperlipidemia, Hypertension Additional Past Medical History / Comment(s): periperal neroupathy marko LE, retinoneuropathy, urine retention, residual to the lt. 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 [employer] Smoking Status: Never smoker Past Alcohol Use History: None Reported Additional Past Alcohol Use History / Comment(s): Patient is a lifelong nonsmoker. He denies any marijuana, street drug use or alcohol use. He is does not have any children. 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 He currently has [address] Past Drug Use History: None Reported - Past Family History Father Family Medical History: Cancer Additional Family Medical History / Comment(s): Father at age 41 from leukemia. Mother Family Medical History: CVA/TIA, Diabetes Mellitus, Hypertension Additional Family Medical History / Comment(s): Mother in her 70s from pneumonia. Sister(s) Additional Family Medical History / Comment(s): Patient has 2 sisters with no major medical problems. Patient does not have any brothers, no children. Medications and Allergies Home Medications Medication Instructions Recorded Confirmed Type Ammonium Lactate Lotion 1 applic TOPICAL DAILY 11/11/15 02/13/18 History [Lac-Hydrin 12% Lotion] Aspirin 325 mg PO DAILY 11/11/15 02/13/18 History Ergocalciferol [Vitamin D2 50,000 unit PO TH 11/11/15 02/13/18 History (DRISDOL)] Lisinopril [Zestril] 20 mg PO QAM 11/11/15 02/13/18 History Magnesium Hydroxide [Milk of 2,400 mg PO DAILY PRN 11/11/15 02/13/18 History Magnesia] Meclizine [Antivert] 12.5 mg PO TID PRN 11/11/15 02/13/18 History Polyethylene Glycol 3350 [Miralax] 17 gm PO DAILY PRN 11/11/15 02/13/18 History Pravastatin Sodium [Pravachol] 40 mg PO HS@2100 11/11/15 02/13/18 History Tamsulosin [Flomax] 0.4 mg PO HS 11/11/15 02/13/18 History Venlafaxine HCl [Effexor] 37.5 mg PO BID 11/11/15 02/13/18 History Labetalol [Trandate] 300 mg PO BID tab 11/17/15 02/13/18 Rx amLODIPine [Norvasc] 5 mg PO DAILY tab 11/17/15 02/13/18 Rx hydrALAZINE HCL [Apresoline] 50 mg PO TID tab 11/17/15 02/13/18 Rx Acetaminophen Tab [Tylenol Tab] 650 mg PO Q6H PRN 03/24/16 02/13/18 History cloNIDine HCL [Catapres] 0.1 mg PO TID PRN 03/24/16 02/13/18 History Aloe Lax 1 cap PO DAILY 02/13/18 02/13/18 History Aloe Lax 1 cap PO HS PRN 02/13/18 02/13/18 History Bisacodyl 5 mg PO TID PRN 02/13/18 02/13/18 History Ondansetron HCl [Zofran] 4 mg PO Q6H PRN 02/13/18 02/13/18 History HYDROcodone/APAP 5-325MG [[place] 1 - 2 each PO Q4-6H PRN #50 tab 02/15/18 Rx 5-325] Sennosides-Docusate Sodium 1 tab PO BID #60 tablet 02/15/18 Rx [Senokot-S] Warfarin [Coumadin] 2.5 mg PO DAILY #30 tab 02/15/18 Rx Allergies Allergy/AdvReac Type Severity Reaction Status Date / Time cashew nut Allergy Unknown Verified 02/13/18 14:34 shellfish derived [Shellfish] Allergy Unknown Verified 02/13/18 14:34 Physical Exam Vitals: Vital Signs Temp Pulse Resp BP Pulse Ox 02/15/18 07:59 98.9 F 96 18 131/76 89 L 02/15/18 02:00 99.1 F 02/15/18 00:06 16 02/14/18 23:23 99.9 F H 81 16 125/68 98 02/14/18 22:00 100.2 F H 80 16 144/70 98 02/14/18 20:59 101.7 F H 88 153/81 98 02/14/18 20:39 82 14 144/76 99 02/14/18 20:01 82 14 114/75 98 02/14/18 19:45 82 14 103/56 98 02/14/18 19:30 82 14 103/69 98 02/14/18 19:15 86 16 113/72 98 02/14/18 19:10 84/50 02/14/18 18:15 79 14 119/59 95 02/14/18 18:00 76 14 98/60 98 02/14/18 17:45 78 10 L 97/63 96 02/14/18 17:31 96.9 F L 73 10 L 75/44 98 02/14/18 14:31 77 16 94 L 02/14/18 14:04 16 95 02/14/18 14:03 98.0 F 79 18 128/67 90 L Intake and Output 02/14/18 02/15/18 02/15/18 22:59 06:59 14:59 Intake Total 2751 Output Total 1105 500 Balance 1646 -500 Intake: IV 2751 Output: Urine 905 500 Straight 900 Estimated Blood Loss 200 Other: Voiding Method Urinal Urinal # Voids 1 GENERAL EXAM: Alert, resting comfortable in no apparent distress. Currently on room air. HEAD: Normocephalic. EYES: Normal reaction of pupils, equal size. NOSE: Clear with pink turbinates. THROAT: No erythema or exudates. NECK: No masses, no JVD. CHEST: No chest wall deformity. LUNGS: Equal air entry with no crackles, wheeze, rhonchi or dullness. CVS: S1 and S2 normal with no audible murmur, regular rhythm. ABDOMEN: No hepatosplenomegaly, normal bowel sounds, no guarding or rigidity. SPINE: No scoliosis or deformity SKIN: No rashes CENTRAL NERVOUS SYSTEM: Residual left-sided weakness secondary to CVA. Nonambulatory. EXTREMITIES: Left hip incision clean dry well approximated. Dressing intact. There is no peripheral edema. No clubbing, no cyanosis. Peripheral pulses are intact. Results - Laboratory Findings CBC and BMP: 02/15/18 06:17 02/13/18 16:31 PT/INR, D-dimer PT 12.1 sec (9.0-12.0) H 02/15/18 06:17 INR 1.3 (<1.2) H 02/15/18 06:17 Abnormal lab findings: Abnormal Labs 02/13/18 02/13/18 02/14/18 16:31 16:31 18:53 WBC 14.4 H 12.9 H RBC 3.65 L Hgb 12.8 L 11.0 L Hct 38.8 L 33.2 L Plt Count Neutrophils # 12.9 H 11.1 H Lymphocytes # 0.7 L 0.7 L PT INR BUN 24 H AST 62 H 02/15/18 02/15/18 06:17 06:17 WBC 10.8 H RBC 3.51 L Hgb 10.6 L Hct 32.2 L Plt Count 133 L Neutrophils # 8.9 H Lymphocytes # 0.8 L PT 12.1 H INR 1.3 H BUN AST - Diagnostic Findings Chest x-ray: image reviewed Assessment and Plan Assessment: Impression: #1 Acute left hip fracture status post fall. Status post open reduction and internal fixation of the greater trochanter fracture. #2 Transient hypoxemia and hypotension suspect secondary to narcotics. Recovered. Chest x-ray clear. #3 History of CVA with residual left-sided weakness. Patient is nonambulatory. #4 Hypertension. #5 Hyperlipidemia. Plan: The patient was seen and evaluated by Dr. Olivera. Chest x-ray and labs were reviewed. The patient had a transient episode of hypoxemia. Recovered. Recommend cautious use of narcotics. We'll follow the patient on as-needed basis. I, the cosigning physician, performed a history & physical examination of the patient. Lungs sounds are clear. Maintaining good O2 saturations in the 90s on room air. I discussed the assessment and plan of care with my nurse practitioner, Sharron Kearney. I attest to the above consultation as dictated by her. Time with Patient: Greater than 30
[2018-02-15] MEDS ORDERED: HYDROmorphone 2 MG TAB PO PRN ×2 (12:07→12:08)
[2018-02-15] MEDS ORDERED: HYDROmorphone 4 MG TABLET PO PRN (12:07)
[2018-02-15] MEDS ORDERED: MORPHINE ORAL SOLN 10 MG/5 ML CUP PO PRN (12:09)
--- NOTE | 2018-02-15 14:21 | P.PN ---
Subjective Progress Note Date: 02/15/18 This is a 58-year-old male patient of Dr. Adorno with past medical history of stroke approximately 4 years ago with residual left-sided weakness, hypertension, hyperlipidemia, benign prostatic hypertrophy, depression. He also has history of diabetes in the past but due to he lost does not require treatment. Patient has paid caregivers 24 hours a day and usually requires assistance in transfers the patient has been trying to do these on his own without waiting for help. He was transferring from bed to the wheelchair and is now following landing on his left hip and patient was transferred to [facility] emergency center for evaluation. X-ray of left knee showed advanced osteoarthritic degenerative changes. Osteopenia versus infiltrative process in the marrow. CAT scan of the brain and cervical spine reveals no acute fracture dislocation evident cervical spine. No acute intracranial hemorrhage or midline shift. Possible bilateral mastoiditis. X-ray of the left hip and pelvis show subcapital fracture left hip. White count 14.4, hemoglobin 12.8. BUN 24 and creatinine 1.22, blood sugar 88. Patient was admitted to the [facility] under the care of orthopedics with plan for left hip hemiarthroplasty today. Patient denies any chest pain, shortness of breath , and nausea or vomiting. There is no loss of consciousness with fall. 02/15: Patient underwent left hip cemented unipolar hemiarthroplasty, open reduction internal fixation greater trochanteric fracture, suture fixation. Patient had hypoxia in the postop period requiring Ventimask and hypotension for which he received vasopressors in the recovery room. Vasopressors were discontinued prior to him leaving the recovery room and patient went back to the [facility] floor. Pulse ox as morning is 89% on room air. Temperature maximum 101.7. Chest x-ray shows no active cardiopulmonary disease. White count is 10.8, hemoglobin 10.6, INR 1.3. Patient has also been straight cathed twice and Mclean catheter will be placed. Patient is refusing to use incentive spirometry, eat breakfast this morning. He denies any significant pain in the left hip. He is refusing to use oxygen. Respirations appear to be stable. No acute distress is noted. Review Of Systems: Constitutional: No fever, no chills, no night sweats. No weight change. + weakness. EENT: No headache. No blurred vision or double vision, no loss of vision. No loss of Hearing, no ringing in the ears, no dizziness. No nasal drainage or congestion. No epistaxis. No sore throat. Lungs: No shortness of breath, cough, no sputum production. No wheezing. Cardiovascular: No chest pain, no lower extremity edema. No palpitations. No paroxysmal nocturnal dyspnea. No orthopnea. No lightheadedness or dizziness. No syncopal episodes. Abdominal: No abdominal pain. No nausea, vomiting. No diarrhea. No constipation. No bloody or tarry stools. + loss of appetite. Genitourinary: No dysuria, increased frequency, urgency. No urinary retention. Musculoskeletal: No myalgias. + muscle weakness, + gait dysfunction, no frequent falls. Left hip pain control. Integumentary: No wounds, no lesions. No rash or pruritus. No unusual bruising. No change in hair or nails. Neurologic: No aphasia. No facial droop. No change in mentation. No head injury. No headache. No paralysis. No paresthesia. Psychiatric: + depression. No anxiety. Endocrine: No abnormal blood sugars. No weight change. No excessive sweating or thirst. No cold intolerance. Objective - Vital Signs Vital signs: Vital Signs Temp 98.9 F 02/15/18 07:59 Pulse 96 02/15/18 07:59 Resp 18 02/15/18 07:59 BP 131/76 02/15/18 07:59 Pulse Ox 89 L 02/15/18 07:59 Intake & Output 02/14/18 02/15/18 02/15/18 18:59 06:59 18:59 Intake Total 2951 Output Total 200 1405 Balance 2751 -1405 Intake: IV 2951 Output: Urine 1405 Straight 900 Estimated Blood Loss 200 Other: Voiding Method Urinal Urinal Urinal # Voids 1 - Exam Gen: This is a 67-year-old male. He is in bed and appears to be comfortable and in no acute distress. HEENT: Head is atraumatic, normocephalic. Pupils equal, round. Sclerae is anicteric. NECK: Supple. No JVD. No lymphadenopathy. No thyromegaly. LUNGS: Clear to auscultation. No wheezes or rhonchi. No intercostal retractions. No accessory muscle usage. HEART: Regular rate and rhythm. No murmur. ABDOMEN: Soft. Bowel sounds are present. No masses. No tenderness. EXTREMITIES: Left hip has small dressing in place with no breakthrough drainage or bleeding. Wound edges are well approximated. No erythema, edema, drainage. Dorsalis pedis palpable bilaterally. NEUROLOGICAL: Patient is awake, alert and oriented x3. Weakness noted to the left upper and lower extremities. - Labs CBC & Chem 7: 02/15/18 06:17 02/13/18 16:31 Labs: Abnormal Lab Results - Last 24 Hours (Table) 02/14/18 02/15/18 02/15/18 Range/Units 18:53 06:17 06:17 WBC 12.9 H 10.8 H (3.8-10.6) k/uL RBC 3.65 L 3.51 L (4.30-5.90) m/uL Hgb 11.0 L 10.6 L (13.0-17.5) gm/dL Hct 33.2 L 32.2 L (39.0-53.0) % Plt Count 133 L (150-450) k/uL Neutrophils # 11.1 H 8.9 H (1.3-7.7) k/uL Lymphocytes # 0.7 L 0.8 L (1.0-4.8) k/uL PT 12.1 H (9.0-12.0) sec INR 1.3 H (<1.2) Assessment and Plan Plan: 1. Acute subcapital fracture left hip with only minimal trauma most likely pathologic due to osteopenia status post left hip cemented unipolar hemiarthroplasty, open reduction internal fixation greater trochanteric fracture , suture fixation. Continue pain management, incentive spirometry to reduce incidence of atelectasis and hospital-acquired pneumonia. 2. Hypertension. Continue Norvasc 5 mg daily, Catapres as needed, hydralazine 50 mg 3 times daily, labetalol 300 mg twice daily, lisinopril 20 mg daily. 3. Hyperlipidemia. Continue pravastatin 40 mg at bedtime. 4. History of stroke with residual left-sided weakness. Patient is only on aspirin 325 mg for this. 5. Benign prostatic hypertrophy. Continue Flomax 0.4 mg at bedtime. 6. Chronic constipation. Continue MiraLAX. 7. DVT prophylaxis to be determined by orthopedics. 8. GI prophylaxis. Pepcid. 9. Recent episode of hypoxemia and hypotension in the postop period, unexpected , requiring Ventimask and vasopressors. Symptoms most likely due to narcotics during surgery. Discharge plan: [place] most likely in the next 24 hours Impression and plan of care have been directed as dictated by the signing physician. Anila Mcconnell nurse practitioner acting as scribe for signing physician.
[2018-02-15] MEDS ORDERED: WARFARIN 5 MG TAB PO ONE (18:00)
[2018-02-15] MEDS: PRAVASTATIN SODIUM 40 MG TAB PO SCH (21:57)
[2018-02-15] MEDS: TAMSULOSIN 0.4 MG CAP.ER.24H PO SCH (21:58)
[2018-02-15] MEDS: SENNOSIDES-DOCUSATE SODIUM 1 EACH TAB PO SCH (21:58)
[2018-02-15] MEDS ORDERED: TEMAZEPAM 15 MG CAP PO PRN (22:00)
[2018-02-15 23:58] VITALS: TEMP 99.3
[2018-02-16] MEDS: SODIUM CHLORIDE 0.9% 1,000 ML IV SCH (00:59)
--- NOTE | 2018-02-16 08:25 | P.DS ---
Providers Date of admission: 02/13/18 17:09 Expected date of discharge: 02/16/18 Attending physician: Ean Azar Consults: 02/13/18 17:10 Consult Physician Routine Consulting Provider: Michael Davis Consult Reason/Comments: Medical clearance for orthopedic surgery Do you want consulting provider notified?: Yes 02/14/18 19:23 Consult Physician Stat Consulting Provider: Ryland Odonnell Consult Reason/Comments: LOW BP'S MARIGANL OXYGEN SATS Do you want consulting provider notified?: Yes Primary care physician: Fredo Adorno - Discharge Diagnosis(es) (1) History of CVA with residual deficit Current Visit: Yes Status: Acute (2) Fall Current Visit: Yes Status: Acute (3) Subcapital fracture of left hip Current Visit: Yes Status: Acute (4) H/O ETOH abuse Current Visit: No Status: Acute (5) Hypotension Current Visit: No Status: Acute Hospital Course: This is a 58-year-old male who presented on 02/13/2018 after falling when trying to transfer himself and sustaining injury to the left hip. On exam and x -ray in the emergency department she was found to have a hip fracture. The pt is admitted to our service for surgical intervention and care. The patient is taken to surgery for hemiarthroplasty of the right hip. The procedure is performed without complication or sequelae. The patient is doing well postoperatively. Vital signs are stable on postop day #3. He is refusing all meds at this time. He refuses to even open his eyes during exam. There are no new complaints or concerns. The patient is discharged to inpatient rehab/ECF pending medical clearance today. Please refer to the med rec for accurate list of medications. Patient Condition at Discharge: Stable Plan - Discharge Summary Discharge Rx Participant: No New Discharge Prescriptions: New HYDROcodone/APAP 5-325MG [[place] 5-325] 1 - 2 each PO Q4-6H PRN #50 tab PRN Reason: Pain Sennosides-Docusate Sodium [Senokot-S] 1 tab PO BID #60 tablet Warfarin [Coumadin] 2.5 mg PO DAILY #30 tab No Action Meclizine [Antivert] 12.5 mg PO TID PRN PRN Reason: Motion Sickness Magnesium Hydroxide [Milk of Magnesia] 2,400 mg PO DAILY PRN PRN Reason: Constipation Lisinopril [Zestril] 20 mg PO QAM Aspirin 325 mg PO DAILY Tamsulosin [Flomax] 0.4 mg PO HS Ergocalciferol [Vitamin D2 (DRISDOL)] 50,000 unit PO TH Ammonium Lactate Lotion [Lac-Hydrin 12% Lotion] 1 applic TOPICAL DAILY Venlafaxine HCl [Effexor] 37.5 mg PO BID Polyethylene Glycol 3350 [Miralax] 17 gm PO DAILY PRN PRN Reason: Constipation Pravastatin Sodium [Pravachol] 40 mg PO HS@2100 Labetalol [Trandate] 300 mg PO BID tab amLODIPine [Norvasc] 5 mg PO DAILY tab hydrALAZINE HCL [Apresoline] 50 mg PO TID tab cloNIDine HCL [Catapres] 0.1 mg PO TID PRN PRN Reason: BP OVER 180/SYSTOLIC Acetaminophen Tab [Tylenol Tab] 650 mg PO Q6H PRN PRN Reason: Pain Aloe Lax 1 cap PO HS PRN PRN Reason: Constipation Aloe Lax 1 cap PO DAILY Bisacodyl 5 mg PO TID PRN PRN Reason: Constipation Ondansetron HCl [Zofran] 4 mg PO Q6H PRN PRN Reason: Nausea Discharge Medication List Ammonium Lactate Lotion [Lac-Hydrin 12% Lotion] 1 applic TOPICAL DAILY 11/11/15 [History] Aspirin 325 mg PO DAILY 11/11/15 [History] Ergocalciferol [Vitamin D2 (DRISDOL)] 50,000 unit PO TH 11/11/15 [History] Lisinopril [Zestril] 20 mg PO QAM 11/11/15 [History] Magnesium Hydroxide [Milk of Magnesia] 2,400 mg PO DAILY PRN 11/11/15 [History] Meclizine [Antivert] 12.5 mg PO TID PRN 11/11/15 [History] Polyethylene Glycol 3350 [Miralax] 17 gm PO DAILY PRN 11/11/15 [History] Pravastatin Sodium [Pravachol] 40 mg PO HS@2100 11/11/15 [History] Tamsulosin [Flomax] 0.4 mg PO HS 11/11/15 [History] Venlafaxine HCl [Effexor] 37.5 mg PO BID 11/11/15 [History] Labetalol [Trandate] 300 mg PO BID tab 11/17/15 [Rx] amLODIPine [Norvasc] 5 mg PO DAILY tab 11/17/15 [Rx] hydrALAZINE HCL [Apresoline] 50 mg PO TID tab 11/17/15 [Rx] Acetaminophen Tab [Tylenol Tab] 650 mg PO Q6H PRN 03/24/16 [History] cloNIDine HCL [Catapres] 0.1 mg PO TID PRN 03/24/16 [History] Aloe Lax 1 cap PO DAILY 02/13/18 [History] Aloe Lax 1 cap PO HS PRN 02/13/18 [History] Bisacodyl 5 mg PO TID PRN 02/13/18 [History] Ondansetron HCl [Zofran] 4 mg PO Q6H PRN 02/13/18 [History] HYDROcodone/APAP 5-325MG [[place] 5-325] 1 - 2 each PO Q4-6H PRN #50 tab 02/15/18 [Rx] Sennosides-Docusate Sodium [Senokot-S] 1 tab PO BID #60 tablet 02/15/18 [Rx] Warfarin [Coumadin] 2.5 mg PO DAILY #30 tab 02/15/18 [Rx] Follow up Appointment(s)/Referral(s): Ean Azar MD [STAFF PHYSICIAN] - 4 Weeks Fredo Adorno MD [Primary Care Provider] - 1-2 days Ambulatory/Diagnostic Orders: Prothrombin Time INR [LAB.AMB] Location: None Selected Discharge Disposition: TRANSFER TO SNF/ECF
[2018-02-16 09:57] LABS: INR 1.2 (<1.2); Prothrombin Time 11.5 sec (9.0-12.0)
[2018-02-16] MEDS: hydrALAZINE HCL 50 MG TAB PO SCH (10:53)
[2018-02-16] MEDS: LISINOPRIL 20 MG TAB PO SCH (10:53)
[2018-02-16] MEDS: amLODIPine 5 MG TAB PO SCH (10:53)
[2018-02-16] MEDS: VENLAFAXINE HCL 37.5 MG TAB PO SCH (10:54)
[2018-02-16] MEDS: LABETALOL 100 MG TAB PO SCH (10:54)
[2018-02-16] MEDS: FAMOTIDINE 20 MG TAB PO SCH (10:54)
--- NOTE | 2018-02-16 13:04 | P.PN ---
Subjective Progress Note Date: 02/16/18 This is a 58-year-old male patient of Dr. Adorno with past medical history of stroke approximately 4 years ago with residual left-sided weakness, hypertension, hyperlipidemia, benign prostatic hypertrophy, depression. He also has history of diabetes in the past but due to he lost does not require treatment. Patient has paid caregivers 24 hours a day and usually requires assistance in transfers the patient has been trying to do these on his own without waiting for help. He was transferring from bed to the wheelchair and is now following landing on his left hip and patient was transferred to [facility] emergency center for evaluation. X-ray of left knee showed advanced osteoarthritic degenerative changes. Osteopenia versus infiltrative process in the marrow. CAT scan of the brain and cervical spine reveals no acute fracture dislocation evident cervical spine. No acute intracranial hemorrhage or midline shift. Possible bilateral mastoiditis. X-ray of the left hip and pelvis show subcapital fracture left hip. White count 14.4, hemoglobin 12.8. BUN 24 and creatinine 1.22, blood sugar 88. Patient was admitted to the [facility] under the care of orthopedics with plan for left hip hemiarthroplasty today. Patient denies any chest pain, shortness of breath , and nausea or vomiting. There is no loss of consciousness with fall. 02/15: Patient underwent left hip cemented unipolar hemiarthroplasty, open reduction internal fixation greater trochanteric fracture, suture fixation. Patient had hypoxia in the postop period requiring Ventimask and hypotension for which he received vasopressors in the recovery room. Vasopressors were discontinued prior to him leaving the recovery room and patient went back to the [facility] floor. Pulse ox as morning is 89% on room air. Temperature maximum 101.7. Chest x-ray shows no active cardiopulmonary disease. White count is 10.8, hemoglobin 10.6, INR 1.3. Patient has also been straight cathed twice and Mclean catheter will be placed. Patient is refusing to use incentive spirometry, eat breakfast this morning. He denies any significant pain in the left hip. He is refusing to use oxygen. Respirations appear to be stable. No acute distress is noted. 02/16: Temperature maximum 99.9, pulse ox 90% on room air. Patient has been to do incentive spirometry. He did require Mclean catheter placement yesterday which will be maintained and patient will go to prison with this. He is on Coumadin for DVT prophylaxis. INR is 1.2. Pain is controlled. Patient is scheduled for discharge to [facility] today in stable condition. Medication reconciliation has been reviewed. Aspirin 325 mg daily will be held until patient is off Coumadin. Review Of Systems: Constitutional: No fever, no chills, no night sweats. No weight change. + weakness. EENT: No headache. No blurred vision or double vision, no loss of vision. No loss of Hearing, no ringing in the ears, no dizziness. No nasal drainage or congestion. No epistaxis. No sore throat. Lungs: No shortness of breath, cough, no sputum production. No wheezing. Cardiovascular: No chest pain, no lower extremity edema. No palpitations. No paroxysmal nocturnal dyspnea. No orthopnea. Abdominal: No abdominal pain. No nausea, vomiting. No diarrhea. No constipation. No bloody or tarry stools. + loss of appetite. Genitourinary: No dysuria, increased frequency, urgency. No urinary retention. Musculoskeletal: No myalgias. + muscle weakness, + gait dysfunction, no frequent falls. Left hip pain control. Integumentary: No wounds, no lesions. No rash or pruritus. No unusual bruising. No change in hair or nails. Neurologic: No aphasia. No facial droop. No change in mentation. No head injury. No headache. No paralysis. No paresthesia. Psychiatric: + depression. No anxiety. Endocrine: No abnormal blood sugars. No weight change. No excessive sweating or thirst. No cold intolerance. Objective - Vital Signs Vital signs: Vital Signs Temp 99.3 F 02/15/18 23:57 Pulse 76 02/15/18 23:57 Resp 12 02/15/18 23:57 BP 143/75 02/15/18 23:57 Pulse Ox 90 L 02/15/18 23:57 Intake & Output 02/15/18 02/16/18 02/16/18 18:59 06:59 18:59 Intake Total 800 937.5 Output Total 1725 Balance 800 -787.5 Intake: Intake, IV Titration 600 937.5 Amount Sodium Chloride 0.9% 1, 600 937.5 000 ml @ 75 mls/hr IV . [id number] ON LICENSE OF [facility] Rx#:[id number] Other 200 Output: Urine 1725 Other: Voiding Method Urinal Indwelling Catheter - Exam Gen: This is a 67-year-old male. He is in bed and appears to be in no acute distress. HEENT: Head is atraumatic, normocephalic. Pupils equal, round. Sclerae is anicteric. NECK: Supple. No JVD. No lymphadenopathy. No thyromegaly. LUNGS: Clear to auscultation. No wheezes or rhonchi. No intercostal retractions. No accessory muscle usage. HEART: Regular rate and rhythm. No murmur. ABDOMEN: Soft. Bowel sounds are present. No masses. No tenderness. EXTREMITIES: Left hip has small dressing in place with no breakthrough drainage or bleeding. Wound edges are well approximated. No erythema, edema, drainage. Dorsalis pedis palpable bilaterally. NEUROLOGICAL: Patient is awake, alert and oriented x3. Weakness noted to the left upper and lower extremities. - Labs CBC & Chem 7: 02/15/18 06:17 02/13/18 16:31 Assessment and Plan Plan: 1. Acute subcapital fracture left hip with only minimal trauma most likely pathologic due to osteopenia status post left hip cemented unipolar hemiarthroplasty, open reduction internal fixation greater trochanteric fracture , suture fixation. Continue pain management, incentive spirometry to reduce incidence of atelectasis and hospital-acquired pneumonia. 2. Hypertension. Continue Norvasc 5 mg daily, Catapres as needed, hydralazine 50 mg 3 times daily, labetalol 300 mg twice daily, lisinopril 20 mg daily. 3. Hyperlipidemia. Continue pravastatin 40 mg at bedtime. 4. History of stroke with residual left-sided weakness. Patient is only on aspirin 325 mg for this. 5. Benign prostatic hypertrophy. Continue Flomax 0.4 mg at bedtime. 6. Chronic constipation. Continue MiraLAX. 7. DVT prophylaxis to be determined by orthopedics. 8. GI prophylaxis. Pepcid. 9. Brief episode of hypoxemia and hypotension in the postop period, unexpected , requiring Ventimask and vasopressors. Symptoms most likely due to narcotics during surgery. Discharge plan: [facility] Impression and plan of care have been directed as dictated by the signing physician. Anila Mcconnell nurse practitioner acting as scribe for signing physician.
[2018-02-16 14:51] VITALS: BP 164/77; PULSE 77; RESP 18
[2018-02-16] MEDS ORDERED: WARFARIN 10 MG TAB PO ONE (18:00)
== END 2018-02-16 15:42 | DRG 470 ==
LOC: EC 14:05 → 4SSUR 17:09
PROVIDERS: ADMIT Orthopaedic Surgery; ATTEND Orthopaedic Surgery
PROC: 0SRS0J9 Replacement of Left Hip Joint, Femoral Surface with Synthetic Substitute, Cemented, Open Approach (ICD-10-PCS; principal; 2018-02-14 10:50)
PROC: 0QS704Z Reposition Left Upper Femur with Internal Fixation Device, Open Approach (ICD-10-PCS; principal; 2018-02-14 10:50)
DX: M80.052A Age-related osteoporosis with current pathological fracture, left femur, initial encounter for fracture (principal); I69.354 Hemiplegia and hemiparesis following cerebral infarction affecting left non-dominant side; M25.052 Hemarthrosis, left hip; S72.112A Displaced fracture of greater trochanter of left femur, initial encounter for closed fracture; W19.XXXA Unspecified fall, initial encounter; E78.5 Hyperlipidemia, unspecified; I10 Essential (primary) hypertension; J45.909 Unspecified asthma, uncomplicated; M19.90 Unspecified osteoarthritis, unspecified site; N40.0 Benign prostatic hyperplasia without lower urinary tract symptoms; R09.02 Hypoxemia; Z79.01 Long term (current) use of anticoagulants; Z79.82 Long term (current) use of aspirin; Z79.899 Other long term (current) drug therapy; Z80.6 Family history of leukemia; Z82.49 Family history of ischemic heart disease and other diseases of the circulatory system; Z83.3 Family history of diabetes mellitus; Z91.81 History of falling; G62.9 Polyneuropathy, unspecified; Z91.018 Allergy to other foods; Z91.013 Allergy to seafood; T40.605A Adverse effect of unspecified narcotics, initial encounter; I95.2 Hypotension due to drugs; K59.00 Constipation, unspecified
CPT/HCPCS: 36415; 70450; 71045; 72125; 73501; 73502; 80053; 85025; 85610; 85730; 86850; 86900; 86901; 88305; 88311; 93005; 96374; 96376; 99285

== ENCOUNTER 2022-01-19 20:35 | Inpatient (IN) | payer MEDICARE, BC ==
[2022-01-19] MEDS ORDERED: SODIUM CHLORIDE 0.9% 1,000 ML IV STA ×2 (21:26)
--- NOTE | 2022-01-19 21:38 | ED ---
Abdominal Pain HPI - General Source: patient, family, RN notes reviewed Mode of arrival: wheelchair Limitations: no limitations - History of Present Illness MD Complaint: abdominal pain <Brandin Haas - Last Filed: 01/19/22 23:11> <Hardy Lerner - Last Filed: 01/19/22 23:40> - General Chief Complaint: Abdominal Pain Stated Complaint: possible UTI,fever Time Seen by Provider: 01/19/22 21:07 - History of Present Illness Initial Comments: 62-year-old male with a history of CVA history of bilateral lower extremity peripheral neuropathy was wheelchair bound who started feeling well 4 days ago and 3 days ago started developing fevers sweats decreased appetite and oral intake. He was brought in today by his for evaluation after this continued. The pain was mild to moderate left sided he has some nausea but no overt vomiting. His urine has become more concentrated and cloudy. Patient has no history of any intra-abdominal surgeries/pathology. No history kidney stones no dysuria no hematuria. No constipation no diarrhea. No other current complaints modifying factors (Brandin Haas) - Related Data Home Medications Medication Instructions Recorded Confirmed Ammonium Lactate Lotion 1 applic TOPICAL DAILY 11/11/15 02/13/18 [Lac-Hydrin 12% Lotion] Ergocalciferol [Vitamin D2 50,000 unit PO TH 11/11/15 02/13/18 (DRISDOL)] Magnesium Hydroxide [Milk of 2,400 mg PO DAILY PRN 11/11/15 02/13/18 Magnesia] Meclizine [Antivert] 12.5 mg PO TID PRN 11/11/15 02/13/18 Pravastatin Sodium [Pravachol] 40 mg PO HS@2100 11/11/15 02/13/18 Tamsulosin [Flomax] 0.4 mg PO HS 11/11/15 02/13/18 Venlafaxine HCl [Effexor] 37.5 mg PO BID 11/11/15 02/13/18 lisinopriL [Zestril] 20 mg PO QAM 11/11/15 02/13/18 polyethylene glycoL 3350 [Miralax] 17 gm PO DAILY PRN 11/11/15 02/13/18 Acetaminophen Tab [Tylenol] 650 mg PO Q6H PRN 03/24/16 02/13/18 cloNIDine HCL [Catapres] 0.1 mg PO TID PRN 03/24/16 02/13/18 Aloe Lax 1 cap PO DAILY 02/13/18 02/13/18 Aloe Lax 1 cap PO HS PRN 02/13/18 02/13/18 bisacodyL [Bisacodyl] 5 mg PO TID PRN 02/13/18 02/13/18 ondansetron HCL [Zofran] 4 mg PO Q6H PRN 02/13/18 02/13/18 Previous Rx's Medication Instructions Recorded Labetalol [Trandate] 300 mg PO BID tab 11/17/15 amLODIPine [Norvasc] 5 mg PO DAILY tab 11/17/15 hydrALAZINE HCL [Apresoline] 50 mg PO TID tab 11/17/15 HYDROcodone/APAP 5-325MG [[place] 1 - 2 each PO Q4-6H PRN #50 tab 02/15/18 5-325] Sennosides-Docusate Sodium 1 tab PO BID #60 tablet 02/15/18 [Senokot-S] Warfarin [Coumadin] 2.5 mg PO DAILY #30 tab 02/15/18 Allergies Allergy/AdvReac Type Severity Reaction Status Date / Time cashew nut Allergy Unknown Verified 02/13/18 14:34 shellfish derived [Shellfish] Allergy Unknown Verified 02/13/18 14:34 Review of Systems ROS Other: All systems not noted in ROS Statement are negative. <Brandin Haas - Last Filed: 01/19/22 23:11> ROS Other: All systems not noted in ROS Statement are negative. <Hardy Lerner - Last Filed: 01/19/22 23:40> ROS Statement: Those systems with pertinent positive or pertinent negative responses have been documented in the HPI. Past Medical History Past Medical History: CVA/TIA, Hyperlipidemia, Hypertension Additional Past Medical History / Comment(s): periperal neroupathy marko LE, retinoneuropathy, urine retention, residual to the lt. side, HAS LT FOOT ORTHOTI C/BRACE History of Any Multi-Drug Resistant Organisms: None Reported Past Surgical History: Orthopedic Surgery, Tonsillectomy Additional Past Surgical History / Comment(s): toes amputated right foot after traumatic injury, cyctoscopy Past Anesthesia/Blood Transfusion Reactions: No Reported Reaction Past Psychological History: No Psychological Hx Reported Past Alcohol Use History: None Reported Past Drug Use History: None Reported - Past Family History Father Family Medical History: Cancer Additional Family Medical History / Comment(s): Father at age 41 from leukemia. Mother Family Medical History: CVA/TIA, Diabetes Mellitus, Hypertension Additional Family Medical History / Comment(s): Mother in her 70s from pneumonia. Sister(s) Additional Family Medical History / Comment(s): Patient has 2 sisters with no major medical problems. Patient does not have any brothers, no children. <Brandin Haas - Last Filed: 01/19/22 23:11> General Exam Limitations: no limitations General appearance: alert, lethargic Head exam: Present: atraumatic, normocephalic, normal inspection Eye exam: Present: normal appearance, PERRL, EOMI. Absent: scleral icterus, conjunctival injection, periorbital swelling ENT exam: Present: mucous membranes dry Neck exam: Present: normal inspection. Absent: tenderness, meningismus, lymphadenopathy Respiratory exam: Present: decreased breath sounds. Absent: respiratory distress, wheezes, rales, rhonchi, stridor Cardiovascular Exam: Present: regular rate, normal rhythm, normal heart sounds. Absent: systolic murmur, diastolic murmur, rubs, gallop, clicks GI/Abdominal exam: Present: soft, normal bowel sounds. Absent: distended, tenderness, guarding, rebound, rigid, bruit, pulsatile mass Rectal exam: Present: deferred Extremities exam: Present: normal capillary refill. Absent: full ROM, tende rness, pedal edema, joint swelling, calf tenderness Back exam: Present: normal inspection Neurological exam: Present: alert, oriented X3, CN II-XII intact, motor sensory deficit (As noted above) Psychiatric exam: Present: normal affect, normal mood Skin exam: Present: warm, intact, normal color, diaphoretic. Absent: rash <WaldoBrandin - Last Filed: 01/19/22 23:11> General appearance: alert, in no apparent distress Head exam: Present: atraumatic, normocephalic, normal inspection Eye exam: Present: normal appearance, PERRL, EOMI. Absent: scleral icterus, conjunctival injection, periorbital swelling ENT exam: Present: normal exam, mucous membranes moist Neck exam: Present: normal inspection. Absent: tenderness, meningismus, lymphadenopathy Respiratory exam: Present: normal lung sounds bilaterally. Absent: respiratory distress, wheezes, rales, rhonchi, stridor Cardiovascular Exam: Present: regular rate, normal rhythm, normal heart sounds. Absent: systolic murmur, diastolic murmur, rubs, gallop, clicks GI/Abdominal exam: Present: soft, normal bowel sounds. Absent: distended, tenderness, guarding, rebound, rigid Extremities exam: Present: normal inspection, full ROM, normal capillary refill. Absent: tenderness, pedal edema, joint swelling, calf tenderness Back exam: Present: normal inspection Neurological exam: Present: alert, oriented X3, CN II-XII intact Psychiatric exam: Present: normal affect, normal mood Skin exam: Present: warm, dry, intact, normal color. Absent: rash <Hardy Lerner - Last Filed: 01/19/22 23:40> - General Exam Comments Initial Comments: This is a well-developed thin appearing male who is awake alert but somewhat lethargic he is oriented 4 (Brandin Haas) Course <Brandin Haas - Last Filed: 01/19/22 23:11> <Hardy Lerner - Last Filed: 01/19/22 23:40> Vital Signs 01/19/22 20:56 Temperature 98.8 F Pulse Rate 70 Respiratory 16 Rate Blood Pressure 86/58 O2 Sat by Pulse 96 Oximetry - Reevaluation(s) Reevaluation #1: 01/19/22 22:56 Patient clinically appears to have evidence of UTI as well as acute kidney injury with dehydration. CT the abdomen is pending at this time the patient has gotten IV fluids IV antibiotics. (Brandin Haas) 01/19/22 23:38 Medical record is reviewed (Hardy Lerner) Reevaluation #2: 01/19/22 22:57 Patient will get a computed tomography scan without contrast I did discuss findings with him the case is endorsed to Dr. Lerner at our shift change pending CT results. 01/19/22 23:11 Case also discussed with Martine Larsen from Dr Louis's service (Brandin Haas) Reevaluation #3: 01/19/22 23:39 Patient symptoms are improving (Hardy Lerner) Reevaluation #4: 01/19/22 23:39 Patient informed results and questions answered (Hardy Lerner) - Consultations Consultation #1: Spoke with H as well as urology regarding patient (Hardy Lerner) Medical Decision Making - Lab Data Result diagrams: 01/19/22 21:47 01/19/22 21:47 - Radiology Data Radiology results: report reviewed (KUB x-ray of the chest reveal no acute processes.), image reviewed <Brandin Haas - Last Filed: 01/19/22 23:11> - Lab Data Result diagrams: 01/19/22 21:47 01/19/22 21:47 - Radiology Data Radiology results: report reviewed (KUB x-ray of the chest reveal no acute processes. CT head and pelvis positive for kidney stone), image reviewed <Hardy Lerner - Last Filed: 01/19/22 23:40> - Medical Decision Making 62 male does have positive urinary tract infection fever and obstructing kidney stone left UVJ. Patient will be admitted for urology evaluation (Hardy Lerner) - Lab Data Lab Results 01/19/22 01/19/22 01/19/22 Range/Units 21:47 21:47 21:47 WBC 16.5 H (3.8-10.6) k/uL RBC 4.20 L (4.30-5.90) m/uL Hgb 13.1 (13.0-17.5) gm/dL Hct 38.3 L (39.0-53.0) % MCV 91.1 (80.0-100.0) fL MCH 31.2 (25.0-35.0) pg MCHC 34.3 (31.0-37.0) g/dL RDW 13.5 (11.5-15.5) % Plt Count 174 (150-450) k/uL MPV 7.9 Neutrophils % 89 % Lymphocytes % 4 % Monocytes % 4 % Eosinophils % 1 % Basophils % 0 % Neutrophils # 14.7 H (1.3-7.7) k/uL Lymphocytes # 0.7 L (1.0-4.8) k/uL Monocytes # 0.7 (0-1.0) k/uL Eosinophils # 0.1 (0-0.7) k/uL Basophils # 0.0 (0-0.2) k/uL Sodium 135 L (137-145) mmol/L Potassium 4.1 (3.5-5.1) mmol/L Chloride 98 (98-107) mmol/L Carbon Dioxide 23 (22-30) mmol/L Anion Gap 14 mmol/L BUN 66 H (9-20) mg/dL Creatinine 2.34 H (0.66-1.25) mg/dL Est GFR (CKD-EPI)AfAm 33 (>60 ml/min/1.73 sqM) Est GFR (CKD-EPI)NonAf 28 (>60 ml/min/1.73 sqM) Glucose 91 (74-99) mg/dL Plasma Lactic Acid Darío 1.2 (0.7-2.0) mmol/L Calcium 9.3 (8.4-10.2) mg/dL Magnesium 2.8 H (1.6-2.3) mg/dL Total Bilirubin 0.8 (0.2-1.3) mg/dL AST 37 (17-59) U/L ALT 25 (4-49) U/L Alkaline Phosphatase 95 (38-126) U/L Total Protein 7.2 (6.3-8.2) g/dL Albumin 3.9 (3.5-5.0) g/dL Amylase 47 (30-110) U/L Lipase 40 (23-300) U/L Urine Color Urine Appearance (Clear) Urine pH (5.0-8.0) Ur Specific Albert (1.001-1.035) Urine Protein (Negative) Urine Glucose (UA) (Negative) Urine Ketones (Negative) Urine Blood (Negative) Urine Nitrite (Negative) Urine Bilirubin (Negative) Urine Urobilinogen (<2.0) mg/dL Ur Leukocyte Esterase (Negative) Urine WBC (0-5) /hpf Urine WBC Clumps (None) /hpf Urine Bacteria (None) /hpf 01/19/22 Range/Units 21:47 WBC (3.8-10.6) k/uL RBC (4.30-5.90) m/uL Hgb (13.0-17.5) gm/dL Hct (39.0-53.0) % MCV (80.0-100.0) fL MCH (25.0-35.0) pg MCHC (31.0-37.0) g/dL RDW (11.5-15.5) % Plt Count (150-450) k/uL MPV Neutrophils % % Lymphocytes % % Monocytes % % Eosinophils % % Basophils % % Neutrophils # (1.3-7.7) k/uL Lymphocytes # (1.0-4.8) k/uL Monocytes # (0-1.0) k/uL Eosinophils # (0-0.7) k/uL Basophils # (0-0.2) k/uL Sodium (137-145) mmol/L Potassium (3.5-5.1) mmol/L Chloride (98-107) mmol/L Carbon Dioxide (22-30) mmol/L Anion Gap mmol/L BUN (9-20) mg/dL Creatinine (0.66-1.25) mg/dL Est GFR (CKD-EPI)AfAm (>60 ml/min/1.73 sqM) Est GFR (CKD-EPI)NonAf (>60 ml/min/1.73 sqM) Glucose (74-99) mg/dL Plasma Lactic Acid Darío (0.7-2.0) mmol/L Calcium (8.4-10.2) mg/dL Magnesium (1.6-2.3) mg/dL Total Bilirubin (0.2-1.3) mg/dL AST (17-59) U/L ALT (4-49) U/L Alkaline Phosphatase (38-126) U/L Total Protein (6.3-8.2) g/dL Albumin (3.5-5.0) g/dL Amylase (30-110) U/L Lipase (23-300) U/L Urine Color Light Red Urine Appearance Turbid (Clear) Urine pH 8.0 (5.0-8.0) Ur Specific Albert 1.019 (1.001-1.035) Urine Protein 4+ H (Negative) Urine Glucose (UA) Negative (Negative) Urine Ketones Negative (Negative) Urine Blood Small H (Negative) Urine Nitrite Negative (Negative) Urine Bilirubin Negative (Negative) Urine Urobilinogen <2.0 (<2.0) mg/dL Ur Leukocyte Esterase Large H (Negative) Urine WBC >182 H (0-5) /hpf Urine WBC Clumps Many H (None) /hpf Urine Bacteria Many H (None) /hpf Disposition <Brandin Haas - Last Filed: 01/19/22 23:11> Is patient prescribed a controlled substance at d/c from ED?: No Time of Disposition: 23:40 <Hardy Lerner - Last Filed: 01/19/22 23:40> Clinical Impression: Fall, Urinary tract infection, Febrile illness, acute, Acute kidney injury, Dehydration, Ureteral calculus, left Disposition: ADMITTED IP TO THIS HOSP Condition: Fair Referrals: None,Stated [Primary Care Provider] - 1-2 days
[2022-01-19 22:04] LABS: Appearance,Urine Turbid (Clear); Bacteria,Urine Many /hpf; Bilirubin,Urine Negative (Negative); Blood,Urine Small (Negative); Color,Urine Light Red; Glucose,Urine (UA) Negative (Negative); Ketones,Urine Negative (Negative); Leukocyte Esterase,Urine Large (Negative); Nitrite,Urine Negative (Negative); Protein,Urine 4+ (Negative); Urobilinogen,Urine <2.0 mg/dL (<2.0); WBC,Urine >182 /hpf (0-5)
--- NOTE | 2022-01-19 22:04 | XR ---
EXAMINATION TYPE: XR chest 2V DATE OF EXAM: 01/19/2022 COMPARISON: 02/14/2018 HISTORY: Abdominal pain TECHNIQUE: FINDINGS: There is no heart failure nor confluent pneumonic infiltrate. Costophrenic angles are fairl y clear. There is slight blunting of the left posterior costophrenic angle. Bony thorax is intact. Th ere are no hilar masses. IMPRESSION: Minimal pleural reaction at the left posterior lung base. Normal heart.
[2022-01-19 22:05] LABS: Specific Gravity,Urine 1.019 (1.001-1.035)
[2022-01-19] MEDS ORDERED: cefTRIAXone IN SWFI 1,000 MG/10 ML SYRINGE IVP STA (22:10)
--- NOTE | 2022-01-19 22:16 | XR ---
EXAMINATION TYPE: XR KUB DATE OF EXAM: 01/19/2022 COMPARISON: NONE HISTORY: Pain. Fever TECHNIQUE: Single view FINDINGS: Supine views were obtained. There is left hip prosthesis. There is no sign of intestinal ob struction or pneumoperitoneum. Fecal pattern is normal. No evidence of a mass. No pathologic calcific ation over the kidneys. IMPRESSION: Nonacute abdomen.
[2022-01-19 22:33] LABS: Basophils % (A) 0 %; Eosinophils # (A) 0.1 k/uL (0-0.7); Eosinophils % (A) 1 %; HCT 38.3 % (39.0-53.0); HGB 13.1 gm/dL (13.0-17.5); Lymphocytes # (A) 0.7 k/uL (1.0-4.8); Lymphocytes % (A) 4 %; MCH 31.2 pg (25.0-35.0); MCHC 34.3 g/dL (31.0-37.0); MCV 91.1 fL (80.0-100.0); Mean Platelet Volume 7.9; Monocytes # (A) 0.7 k/uL (0-1.0); Monocytes % (A) 4 %; Neutrophils # (A) 14.7 k/uL (1.3-7.7); Neutrophils % (A) 89 %; Platelet Count 174 k/uL (150-450); RDW 13.5 % (11.5-15.5); WBC 16.5 k/uL (3.8-10.6)
[2022-01-19 22:41] LABS: Albumin 3.9 g/dL (3.5-5.0); Calcium 9.3 mg/dL (8.4-10.2); Magnesium 2.8 mg/dL (1.6-2.3); Potassium 4.1 mmol/L (3.5-5.1); Total Bilirubin 0.8 mg/dL (0.2-1.3); Total Protein 7.2 g/dL (6.3-8.2)
--- NOTE | 2022-01-19 23:34 | CT ---
EXAMINATION TYPE: CT abdomen pelvis wo con DATE OF EXAM: 01/19/2022 COMPARISON: None HISTORY: POSSIBLE UTI, FEVER CT DLP: 721.9 mGycm Automated exposure control for dose reduction was used. Images obtained from the diaphragm to the floor the pelvis with no contrast. There is some mild pleural thickening and atelectasis at the posterior lung bases. There is minimal c alcification. Heart size is top normal. No pericardial effusion. Liver and spleen are intact. No pancreatic mass. The stomach is intact. The bile ducts are not dilate d. Gallbladder is contracted. There is probably 1 cm calcified gallstone. There is no adrenal mass. Kidneys have normal size. There is left-sided hydronephrosis with 6 mm obst ructing calculus at the left ureteropelvic junction. There are numerous collateral renal calculi birgit uring up to almost 1 cm. Right kidney shows no sign of obstruction. No retroperitoneal adenopathy. Th e ureters are not dilated. There is some high attenuation at the posterior aspect of the urinary blad mar. This measures 4 x 3 cm and could be dense calcification within a bladder diverticulum. There is no adrenal mass. There is left hip prosthesis. There is retained fecal material in the rectu m that measures 7.5 cm. There are sigmoid diverticula. No diverticulitis. No mesenteric edema. No ascites or free air. No sign of a bowel obstruction. The lumbar vertebrae have normal alignment. No compression fracture. Posterior elements are intact. T here is no lumbar paraspinal mass. Bony pelvis is intact. The sacroiliac joints are intact. IMPRESSION: Obstructing calculus at the left ureteropelvic junction. Numerous bilateral renal calculi. Large calcification in the pelvis could be calculus in a large bladder diverticulum. Correlation with the patient's surgical history needed. Unusual prostate calcification also possible. Colonic diverticulosis without diverticulitis. Mild rectal fecal impaction.
[2022-01-19] MEDS ORDERED: ONDANSETRON 4 MG/2 ML VIAL IVP PRN (23:35)
[2022-01-19] MEDS ORDERED: MORPHINE SULFATE 4 MG/ML SYRINGE IV PRN (23:35)
[2022-01-19] MEDS ORDERED: KETOROLAC 15 MG/ML 1 ML VIAL IVP STA (23:35)
[2022-01-19] MEDS ORDERED: NALOXONE 0.4 MG/ML 1 ML VIAL IV PRN (23:35)
[2022-01-20 06:38] LABS: Basophils % (A) 0 %; Eosinophils # (A) 0.1 k/uL (0-0.7); Eosinophils % (A) 1 %; HGB 11.5 gm/dL (13.0-17.5); Lymphocytes # (A) 0.8 k/uL (1.0-4.8); Lymphocytes % (A) 7 %; MCH 30.4 pg (25.0-35.0); MCHC 32.7 g/dL (31.0-37.0); Mean Platelet Volume 8.3; Monocytes # (A) 0.7 k/uL (0-1.0); Monocytes % (A) 6 %; Neutrophils # (A) 10.2 k/uL (1.3-7.7); Neutrophils % (A) 84 %; Platelet Count 148 k/uL (150-450); RBC 3.77 m/uL (4.30-5.90); RDW 13.8 % (11.5-15.5); WBC 12.1 k/uL (3.8-10.6)
[2022-01-20] MEDS: SODIUM CHLORIDE 0.9% 1,000 ML IV SCH ×3 (07:15→17:20)
[2022-01-20 07:16] LABS: Albumin 3.1 g/dL (3.5-5.0); Calcium 8.3 mg/dL (8.4-10.2); Magnesium 2.5 mg/dL (1.6-2.3); Phosphorus 3.7 mg/dL (2.5-4.5); Potassium 3.8 mmol/L (3.5-5.1); Total Bilirubin 0.4 mg/dL (0.2-1.3); Total Protein 5.8 g/dL (6.3-8.2)
--- NOTE | 2022-01-20 09:55 | P.GSCN ---
History of Present Illness Consult date: 01/20/22 History of present illness: 62 yo male presented to the er with left flank pain and recent history of fever A ct scab=n identified a 6 mm proximal ureteral stone. His urine looks infected and his wbc is 16.5.His ct scan shows multiple bilateral small stones. this is his first symptomatic stone Review of Systems All systems: negative - Constitutional Denies fever, Denies weight loss - EENT Eyes: denies blurred vision Ears, nose, mouth and throat: Denies dysphagia - Cardiovascular Denies chest pain, Denies shortness of breath - Respiratory Denies cough, Denies 7 - Gastrointestinal Reports as per HPI - Genitourinary Denies dysuria, Denies hematuria - Integumentary Denies rash, Denies unusual bruising - Neurological Denies headaches, Denies syncope - Hematologic/Lymphatic Denies easy bleeding, Denies easy bruising Past Medical History Past Medical History: CVA/TIA, Hyperlipidemia, Hypertension Additional Past Medical History / Comment(s): periperal neroupathy marko LE, retinoneuropathy, urine retention, residual to the lt. side, HAS LT FOOT ORTHOTIC/BRACE History of Any Multi-Drug Resistant Organisms: None Reported Past Surgical History: Orthopedic Surgery, Tonsillectomy Additional Past Surgical History / Comment(s): toes amputated right foot after traumatic injury, cyctoscopy, Left hip surgery. 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 W.C BOUND Smoking Status: Never smoker Past Alcohol Use History: None Reported Additional Past Alcohol Use History / Comment(s): Patient is a lifelong nonsmoker. He denies any marijuana, street drug use or alcohol use. He is does not have any children. 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 He currently has [address] Past Drug Use History: None Reported - Past Family History Father Family Medical History: Cancer Additional Family Medical History / Comment(s): Father at age 41 from leukemia. Mother Family Medical History: CVA/TIA, Diabetes Mellitus, Hypertension Additional Family Medical History / Comment(s): Mother in her 70s from pneumonia. Sister(s) Additional Family Medical History / Comment(s): Patient has 2 sisters with no major medical problems. Patient does not have any brothers, no children. Medications and Allergies Home Medications Medication Instructions Recorded Confirmed Type Ammonium Lactate Lotion 1 applic TOPICAL DAILY 11/11/15 01/20/22 History [Lac-Hydrin 12% Lotion] Pravastatin Sodium [Pravachol] 40 mg PO HS@2100 11/11/15 01/20/22 History Tamsulosin [Flomax] 0.4 mg PO HS 11/11/15 01/20/22 History Venlafaxine HCl [Effexor] 37.5 mg PO BID 11/11/15 01/20/22 History lisinopriL [Zestril] 20 mg PO QAM 11/11/15 01/20/22 History Labetalol [Trandate] 300 mg PO BID tab 11/17/15 01/20/22 Rx amLODIPine [Norvasc] 5 mg PO DAILY tab 11/17/15 01/20/22 Rx Alendronate Sodium [Fosamax] 70 mg PO Q7D 01/20/22 01/20/22 History Aspirin 325 mg PO DAILY 01/20/22 01/20/22 History Multivit-Min/Folic Acid/[id number] 1 tab PO BID 01/20/22 01/20/22 History [Alive Premium Adult Multivit] hydrALAZINE HCL [Apresoline] 50 mg PO BID 01/20/22 01/20/22 History Allergies Allergy/AdvReac Type Severity Reaction Status Date / Time cashew nut Allergy Unknown Verified 01/20/22 08:25 shellfish derived [Shellfish] Allergy Unknown Verified 01/20/22 08:25 Surgical - Exam Vital Signs Temp Pulse Resp BP Pulse Ox 98.8 F 70 16 86/58 96 01/19/22 20:56 01/19/22 20:56 01/19/22 20:56 01/19/22 20:56 01/19/22 20:56 - General well developed, well nourished, moderate distress, chronically ill - Eyes PERRL - ENT no hearing loss - Neck trachea midline - Respiratory normal expansion, normal respiratory effort - Cardiovascular Rhythm: regular - Abdomen Abdomen: soft, tender - Genitourinary normal penis with no external lesions, testicles present - Musculoskeletal previous cva. 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 WHeel chair bound - Psychiatric oriented to time, oriented to person, oriented to place, speech is normal, memory intact Results - Labs 01/20/22 05:21 01/20/22 05:21 Abnormal Lab Results - Last 24 Hours (Table) 01/19/22 01/19/22 01/19/22 Range/Units 21:47 21:47 21:47 WBC 16.5 H (3.8-10.6) k/uL RBC 4.20 L (4.30-5.90) m/uL Hct 38.3 L (39.0-53.0) % Neutrophils # 14.7 H (1.3-7.7) k/uL Lymphocytes # 0.7 L (1.0-4.8) k/uL Sodium 135 L (137-145) mmol/L BUN 66 H (9-20) mg/dL Creatinine 2.34 H (0.66-1.25) mg/dL Magnesium 2.8 H (1.6-2.3) mg/dL Urine Protein 4+ H (Negative) Urine Blood Small H (Negative) Ur Leukocyte Esterase Large H (Negative) Urine WBC >182 H (0-5) /hpf Urine WBC Clumps Many H (None) /hpf Urine Bacteria Many H (None) /hpf Microbiology - Last 24 Hours (Table) 01/19/22 21:47 Urine Culture - Preliminary Urine,Clean Catch 01/19/22 22:00 Urine Culture - Preliminary Urine,Voided Diabetes panel 01/19/22 Range/Units 21:47 Sodium 135 L (137-145) mmol/L Potassium 4.1 (3.5-5.1) mmol/L Chloride 98 (98-107) mmol/L Carbon Dioxide 23 (22-30) mmol/L BUN 66 H (9-20) mg/dL Creatinine 2.34 H (0.66-1.25) mg/dL Glucose 91 (74-99) mg/dL Calcium 9.3 (8.4-10.2) mg/dL AST 37 (17-59) U/L ALT 25 (4-49) U/L Alkaline Phosphatase 95 (38-126) U/L Total Protein 7.2 (6.3-8.2) g/dL Albumin 3.9 (3.5-5.0) g/dL Calcium panel 01/19/22 Range/Units 21:47 Calcium 9.3 (8.4-10.2) mg/dL Albumin 3.9 (3.5-5.0) g/dL Pituitary panel 01/19/22 Range/Units 21:47 Sodium 135 L (137-145) mmol/L Potassium 4.1 (3.5-5.1) mmol/L Chloride 98 (98-107) mmol/L Carbon Dioxide 23 (22-30) mmol/L BUN 66 H (9-20) mg/dL Creatinine 2.34 H (0.66-1.25) mg/dL Glucose 91 (74-99) mg/dL Calcium 9.3 (8.4-10.2) mg/dL Adrenal panel 01/19/22 Range/Units 21:47 Sodium 135 L (137-145) mmol/L Potassium 4.1 (3.5-5.1) mmol/L Chloride 98 (98-107) mmol/L Carbon Dioxide 23 (22-30) mmol/L BUN 66 H (9-20) mg/dL Creatinine 2.34 H (0.66-1.25) mg/dL Glucose 91 (74-99) mg/dL Calcium 9.3 (8.4-10.2) mg/dL Total Bilirubin 0.8 (0.2-1.3) mg/dL AST 37 (17-59) U/L ALT 25 (4-49) U/L Alkaline Phosphatase 95 (38-126) U/L Total Protein 7.2 (6.3-8.2) g/dL Albumin 3.9 (3.5-5.0) g/dL - Imaging CT scan - abdomen: report reviewed, image reviewed CT scan - pelvis: report reviewed, image reviewed Assessment and Plan Assessment: Impression: uit with sepsis, obstructing left ureteral stone, pyonephrosis., medical illnesses Plan: cysto with stent left.
[2022-01-20] MEDS ORDERED: LACTATED RINGERS 1,000 ML IV ONE (13:46)
[2022-01-20] MEDS ORDERED: ONDANSETRON 4 MG/2 ML VIAL IVP ONE (13:47)
[2022-01-20] MEDS ORDERED: DEXAMETHASONE SOD PHOSPHATE 4 MG/ML 1 ML VIAL IVP ONE (13:49)
--- NOTE | 2022-01-20 14:48 | P.OP ---
Date of Procedure: 01/20/22 Preoperative Diagnosis: Left ureteral calculus with obstruction, urinary tract infection with sepsis, pyonephrosis Postoperative Diagnosis: Same, urine retention, chronic cystitis, multiple bladder calculi. Procedure(s) Performed: Cystoscopy, evacuation of multiple bladder stones, culture of urine, placement of 6 x 26 double-J catheter left Anesthesia: MAC Surgeon: Chava Carson Estimated Blood Loss (ml): 0 Pathology: other (Stone, urine culture) Condition: stable Disposition: PACU Indications for Procedure: The patient is 62. He has had a previous stroke. He came in the emergency room with feeling poorly fever. He is found to have an obstructing ureteral stone. We are consult would. He has history is as above. He denies previous stones. He states he's only had one urine infection. He comes for stent placement Description of Procedure: A shunt brought to the operating suite. He is given IV sedation. He is prepped and draped sterilely. Cystoscopy Foroblique lens and 22-Lux[place]bourgish sheath identifies a normal anterior urethra. The prostatic urethra shows some obstruction. Upon entering the bladder there is a significant amount of purulent urine. This is drained out and irrigated thoroughly. A large amount of calcareous debris is drained out of the bladder. The bladder is heavily trabeculated and very inflamed. After multiple irrigations and draining a large amount of stony debris I eventually identify the left ureteral orifice. It is successfully intubated with the 035 wire is passed up into the kidney. Over the wires passed a 6 x 26 double-J catheter that coils in the renal pelvis and the bladder as the scope removed. A Mclean cath is introduced Impression successful placement of double-J catheter for obstructing urinary tract calculus left, pyelonephrosis. Urine retention with multiple stone debris. Urinary tract infection Recommendations: The catheter should remain in place. After the patient recovers from his sepsis due to an evaluation for his bladder level alone removal of the ureteral and possible renal stones. I suspect he has chronic urine retention leading to recurrent urine infection and secondary stone formation.
[2022-01-20] MEDS: HEPARIN SODIUM,PORCINE/PF 5,000 UNIT/0.5 ML SYRINGE SQ SCH (17:20)
--- NOTE | 2022-01-20 18:20 | FL ---
EXAMINATION TYPE: FL guidance operating room DATE OF EXAM: 01/20/2022 FLUOROSCOPY Fluoroscopy time of 53 seconds was used during left ureteral stent placement. 4 image/s document/s t he procedure.
--- NOTE | 2022-01-20 21:36 | P.HPIM ---
History of Present Illness H&P Date: 01/20/22 Chief Complaint: Abdominal pain Patient is a 62-year-old male with a known history of CVA/TIA with left-sided weakness, hypertension, hyperlipidemia, bilateral lower extremity peripheral neuropathy, retinopathy and history of urinary retention was seen by his caregiver and sent to ER since he is not feeling well for the past 4 to 5 days. Patient started having fevers and sweats and has been having decreased oral intake and loss of appetite. Patient was brought to the hospital by his for evaluation. Patient does have pain in the left side of the abdomen. No com plaints of vomiting. Patient states that his urine has become more concentrated and cloudy. No prior history of renal stones. Abdominal surgeries. On admission blood pressure was low 86/58 and pulse ox 96% on room air. Afebrile on admission. Chest x-ray showed minimal pleural reaction at the left posterior lung base. Normal heart. KUB x-ray showed nonacute abdomen. CT of abdomen pelvis showed obstructing calculus at the left ureteropelvic junction. Numerous bilateral renal calculi. Large calcification in the pelvis could be calculus. Large bladder diverticulum. Correlation with patient's surgical history needed. Managed usual prostate calcifications are also possible. Coronary diverticulosis without diverticulitis. Mild rectal fecal impaction. Laboratory data showed WBC 16.1 hemoglobin 13.1 and platelets 174 BUN 66 and creatinine 2.34 and sodium 135 Magnesium 2.8 lactic acid 1.2 Urinalysis showed large leukocyte esterase with elevated RBCs and WBCs and WBC clumps with 4+ protein. Review of Systems Constitutional: Patient does have subjective fevers and chills.. Patient does have generalized weakness and lethargy. Abdomen: Patient does have nausea and vomiting. left-sided abdominal pain. no diarrhea. constipation. Cardiovascular: Patient denies any chest pain or short of breath no palpitations. Respiratory: patient denied any cough . no sputum production. No shortness of breath Neurologic: Patient denied any numbness or tingling headache. Musculoskeletal: Patient denies any complaints of joint swelling or deformity. Skin: Negative Psychiatric: Negative Endocrine: No heat or cold intolerance. No recent weight gain. Genitourinary: No dysuria or hematuria. All other 14 point ROS negative except the above Past Medical History Past Medical History: CVA/TIA, Hyperlipidemia, Hypertension Additional Past Medical History / Comment(s): periperal neroupathy marko LE, ret inoneuropathy, urine retention, residual to the lt. side, HAS LT FOOT ORTHOTIC/BRACE History of Any Multi-Drug Resistant Organisms: None Reported Past Surgical History: Orthopedic Surgery, Tonsillectomy Additional Past Surgical History / Comment(s): toes amputated right foot after traumatic injury, cyctoscopy, Left hip surgery. 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 [employer] Smoking Status: Never smoker Past Alcohol Use History: None Reported Additional Past Alcohol Use History / Comment(s): Patient is a lifelong nonsmoker. He denies any marijuana, street drug use or alcohol use. He is does not have any children. 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 He currently has [address] Past Drug Use History: None Reported - Past Family History Father Family Medical History: Cancer Additional Family Medical History / Comment(s): Father at age 41 from leukemia. Mother Family Medical History: CVA/TIA, Diabetes Mellitus, Hypertension Additional Family Medical History / Comment(s): Mother in her 70s from pneumonia. Sister(s) Additional Family Medical History / Comment(s): Patient has 2 sisters with no major medical problems. Patient does not have any brothers, no children. Medications and Allergies Home Medications Medication Instructions Recorded Confirmed Type Ammonium Lactate Lotion 1 applic TOPICAL DAILY 11/11/15 01/20/22 History [Lac-Hydrin 12% Lotion] Pravastatin Sodium [Pravachol] 40 mg PO HS@2100 11/11/15 01/20/22 History Tamsulosin [Flomax] 0.4 mg PO HS 11/11/15 01/20/22 History Venlafaxine HCl [Effexor] 37.5 mg PO BID 11/11/15 01/20/22 History lisinopriL [Zestril] 20 mg PO QAM 11/11/15 01/20/22 History Labetalol [Trandate] 300 mg PO BID tab 11/17/15 01/20/22 Rx amLODIPine [Norvasc] 5 mg PO DAILY tab 11/17/15 01/20/22 Rx Alendronate Sodium [Fosamax] 70 mg PO Q7D 01/20/22 01/20/22 History Aspirin 325 mg PO DAILY 01/20/22 01/20/22 History Multivit-Min/Folic Acid/Kml414 1 tab PO BID 01/20/22 01/20/22 History [Alive Premium Adult Multivit] hydrALAZINE HCL [Apresoline] 50 mg PO BID 01/20/22 01/20/22 History Allergies Allergy/AdvReac Type Severity Reaction Status Date / Time cashew nut Allergy Unknown Verified 01/20/22 08:25 shellfish derived [Shellfish] Allergy Unknown Verified 01/20/22 08:25 Physical Exam Vitals: Vital Signs Temp Pulse Pulse Resp BP BP Pulse Ox 01/20/22 01:00 68 16 01/20/22 00:59 97.8 F 68 16 114/72 97 01/19/22 20:56 98.8 F 70 16 86/58 96 Intake and Output 01/19/22 01/20/22 01/20/22 22:59 06:59 14:59 Other: Voiding Method Urinal # Voids 5 # Bowel Movements 0 Weight 86.183 kg 86.183 kg PHYSICAL EXAMINATION: Patient is lying in the bed comfortably, no acute distress, awake alert and oriented.. Able to answer simple questions. HEENT: Normocephalic. Neck is supple. Pupils reactive. Nostrils clear. Oral cavity is moist. Neck reveals no JVD, carotid bruits, or thyromegaly. CHEST EXAMINATION: Trachea is central. Symmetrical expansion. Lung hernandes clear to auscultation and percussion. Bibasilar diminished sounds. CARDIAC: Normal S1, S2 with no gallops. No murmurs ABDOMEN: Soft. Bowel sounds present. Left flank tenderness.. No organomegaly. No abdominal bruits. Extremities: reveal no edema. No clubbing or cyanosis Neurologically awake, alert, oriented x3. Patient does have left-sided weakness. Skin: No rash or skin lesions. Psychiatric: Coperative. Nonsuicidal, Musculoskeletal: No joint swelling or deformity. Results CBC & Chem 7: 01/20/22 05:21 01/20/22 05:21 Labs: Abnormal Lab Results - Last 24 Hours (Table) 01/19/22 01/19/2201/19/22 Range/Units 21:47 21:47 21:47 WBC 16.5 H (3.8-10.6) k/uL RBC 4.20 L (4.30-5.90) m/uL Hgb (13.0-17.5) gm/dL Hct 38.3 L (39.0-53.0) % Plt Count (150-450) k/uL Neutrophils # 14.7 H (1.3-7.7) k/uL Lymphocytes # 0.7 L (1.0-4.8) k/uL Sodium 135 L (137-145) mmol/L BUN 66 H (9-20) mg/dL Creatinine 2.34 H (0.66-1.25) mg/dL Calcium (8.4-10.2) mg/dL Magnesium 2.8 H (1.6-2.3) mg/dL Total Protein (6.3-8.2) g/dL Albumin (3.5-5.0) g/dL Urine Protein 4+ H (Negative) Urine Blood Small H (Negative) Ur Leukocyte Esterase Large H (Negative) Urine WBC >182 H (0-5) /hpf Urine WBC Clumps Many H (None) /hpf Urine Bacteria Many H (None) /hpf 01/20/22 01/20/22 Range/Units 05:21 05:21 WBC 12.1 H (3.8-10.6) k/uL RBC 3.77 L (4.30-5.90) m/uL Hgb 11.5 L (13.0-17.5) gm/dL Hct 35.0 L (39.0-53.0) % Plt Count 148 L (150-450) k/uL Neutrophils # 10.2 H (1.3-7.7) k/uL Lymphocytes # 0.8 L (1.0-4.8) k/uL Sodium (137-145) mmol/L BUN 62 H (9-20) mg/dL Creatinine 2.10 H (0.66-1.25) mg/dL Calcium 8.3 L (8.4-10.2) mg/dL Magnesium 2.5 H (1.6-2.3) mg/dL Total Protein 5.8 L (6.3-8.2) g/dL Albumin 3.1 L (3.5-5.0) g/dL Urine Protein (Negative) Urine Blood (Negative) Ur Leukocyte Esterase (Negative) Urine WBC (0-5) /hpf Urine WBC Clumps (None) /hpf Urine Bacteria (None) /hpf Microbiology - Last 24 Hours (Table) 01/19/22 21:47 Urine Culture - Preliminary Urine,Clean Catch 01/19/22 22:00 Urine Culture - Preliminary Urine,Voided Thrombosis Risk Factor Assmnt - DVT/VTE Prophylaxis DVT/VTE Prophylaxis: Pharmacologic Prophylaxis ordered - Choose All That Apply Each Risk Factor Represents 2 Points: Age 61-74 years Thrombosis Risk Factor Assessment Total Risk Factor Score: 2 Thrombosis Risk Factor Assessment Level: Low Risk Assessment and Plan Assessment: Obstructing calculus at the left ureteropelvic junction Multiple bilateral renal calculi Left-sided abdominal pain Acute urinary tract infection Sepsis secondary to above History of CVA Residual weakness. Hypertension Hyperlipidemia DVT prophylaxis with heparin subcu Plan: Patient will be current on IV hydration with normal saline. Continue with antibiotics in the form of ceftriaxone and follow-up urine culture report. Continue with pain management and urology was consulted. Patient is scheduled for OR today afternoon. Continue to follow closely. Prognosis is guarded at this time. Time with Patient: Greater than 30
[2022-01-20] MEDS: FAMOTIDINE 20 MG TAB PO SCH (21:51)
[2022-01-20] MEDS: TAMSULOSIN 0.4 MG CAP.ER.24H PO SCH (21:51)
[2022-01-20] MEDS: DOCUSATE 100 MG CAP PO SCH (22:34)
[2022-01-20] MEDS: VENLAFAXINE HCL 37.5 MG TAB PO SCH (22:35)
[2022-01-20] MEDS: PRAVASTATIN SODIUM 40 MG TAB PO SCH (22:35)
[2022-01-21] MEDS ORDERED: HEPARIN SODIUM,PORCINE 5,000 UNIT/ML 1 ML VIAL ONE (00:45)
[2022-01-21] MEDS: SODIUM CHLORIDE 0.9% 1,000 ML IV SCH ×5 (04:58→23:49)
[2022-01-21] MEDS: HEPARIN SODIUM,PORCINE/PF 5,000 UNIT/0.5 ML SYRINGE SQ SCH ×4 (04:58→23:53)
--- NOTE | 2022-01-21 07:41 | P.PN ---
Subjective Progress Note Date: 01/21/22 The patient is status post cystoscopy, irrigation of the large volume of stone and purulence out of the bladder as well as placement of a 6 x 26 stent on the left side to drain the obstructing left ureter. The patient's vital signs are stable. He feels better and he looks better. The urine in the catheter is clear this morning where it was markedly purulent yesterday when I did the cystoscopy. The patient denies any real problems voiding. He is status post stroke 7 years ago. Aside from eventually dealing with the ureteral stone as well as renal stones a patient will need a bladder evaluation because of the significant abnormality noted endoscopically yesterday. This has been discussed with the patient. Objective - Vital Signs Vital signs: Vital Signs Temp 97.8 F 01/21/22 05:00 Pulse 74 01/21/22 05:00 Resp 16 01/21/22 05:00 BP 166/91 01/21/22 05:00 Pulse Ox 98 01/21/22 05:00 FiO2 Intake & Output 01/20/22 01/21/22 01/21/22 18:59 06:59 18:59 Intake Total 730 590 Output Total 610 1000 Balance 120 -410 Intake: IV 600 Intake, IV Titration 130 Amount Sodium Chloride 0.9% 1, 130 000 ml @ 130 mls/hr IV . Q7H42M [facility] Rx#:[id number] Oral 590 Output: Urine 600 1000 Estimated Blood Loss 10 Other: Voiding Method Indwelling Catheter Indwelling Catheter - Labs CBC & Chem 7: 01/20/22 05:21 01/20/22 05:21 Labs: Microbiology - Last 24 Hours (Table) 01/20/22 14:41 Urine Culture - Preliminary Urine,Catheterized 01/19/22 20:15 Blood Culture - Preliminary Blood No Growth after 24 hours 01/19/22 20:05 Blood Culture - Preliminary Blood No Growth after 24 hours 01/19/22 21:47 Urine Culture - Preliminary Urine,Clean Catch Gram Neg Bacilli 01/19/22 22:00 Urine Culture - Preliminary Urine,Voided Gram Neg Bacilli
[2022-01-21] MEDS: DOCUSATE 100 MG CAP PO SCH ×2 (08:34→20:19)
[2022-01-21] MEDS: VENLAFAXINE HCL 37.5 MG TAB PO SCH ×2 (08:34→20:20)
[2022-01-21 09:12] LABS: Basophils # (A) 0.02 X 10*3/uL (0.00-0.10); Basophils % (A) 0.2 %; Eosinophils # (A) 0 X 10*3/uL (0.04-0.35); Eosinophils % (A) 0 %; HCT 34.9 % (39.6-50.0); HGB 11.6 g/dL (13.0-17.0); Immature Grans, Automated 0.7 %; Lymphocytes # (A) 0.55 X 10*3/uL (0.90-5.00); Lymphocytes % (A) 6.2 %; MCH 30.4 pg (27.0-32.0); MCHC 33.2 g/dL (32.0-37.0); MCV 91.4 fL (80.0-97.0); Mean Platelet Volume 9.7 fL (9.5-12.2); Monocytes # (A) 0.69 X 10*3/uL (0.20-1.00); Monocytes % (A) 7.8 %; NRBC Per 100 WBC 0 /100 WBCS (0.0-0.0); Neutrophils % (A) 85.1 %; Platelet Count 185 X 10*3/uL (140-440); RBC 3.82 X 10*6/uL (4.40-5.60); RDW 13.4 % (11.5-14.5); WBC 8.82 X 10*3/uL (4.50-10.00)
[2022-01-21 09:22] LABS: African American GFR (CKD) 61.1 (60.0-200.0); Anion Gap 10.2 mmol/L (10.00-18.00); BUN/Creat Ratio 28.64 Ratio (12.00-20.00); Blood Urea Nitrogen 40.1 mg/dL (9.0-27.0); Calcium 8.3 mg/dL (8.7-10.3); Carbon Dioxide 22.8 mmol/L (20.0-27.5); Non-African American GFR(CKD) 52.7 (60.0-200.0)
[2022-01-21] MEDS: LABETALOL 100 MG TAB PO SCH ×2 (13:36→20:19)
[2022-01-21] MEDS: amLODIPine 5 MG TAB PO SCH (13:36)
[2022-01-21] MEDS: hydrALAZINE HCL 50 MG TAB PO SCH ×2 (13:36→20:19)
[2022-01-21] MEDS: MULTIVITAMINS, THERA 1 EACH TAB PO SCH ×2 (13:36→20:20)
[2022-01-21] MEDS: AMMONIUM LACTATE 12% LOTION 225 GM BTL TOPICAL SCH (13:38)
[2022-01-21] MEDS ORDERED: lisinopriL 20 MG TAB PO STA (18:12)
--- NOTE | 2022-01-21 18:26 | P.PN ---
Subjective Progress Note Date: 01/21/22 Patient is a 62-year-old male with a known history of CVA/TIA with left-sided weakness, hypertension, hyperlipidemia, bilateral lower extremity peripheral neuropathy, retinopathy and history of urinary retention was seen by his caregiver and sent to ER since he is not feeling well for the past 4 to 5 days. Patient started having fevers and sweats and has been having decreased oral intake and loss of appetite. Patient was brought to the hospital by his for evaluation. Patient does have pain in the left side of the abdomen. No complaints of vomiting. Patient states that his urine has become more concentrated and cloudy. No prior history of renal stones. Abdominal surgeries. On admission blood pressure was low 86/58 and pulse ox 96% on room air. Afebrile on admission. Chest x-ray showed minimal pleural reaction at the left posterior lung base. Normal heart. KUB x-ray showed nonacute abdomen. CT of abdomen pelvis showed obstructing calculus at the left ureteropelvic junction. Numerous bilateral renal calculi. Large calcification in the pelvis could be calculus. Large bladder d iverticulum. Correlation with patient's surgical history needed. Managed usual prostate calcifications are also possible. Coronary diverticulosis without diverticulitis. Mild rectal fecal impaction. Laboratory data showed WBC 16.1 hemoglobin 13.1 and platelets 174 BUN 66 and creatinine 2.34 and sodium 135 Magnesium 2.8 lactic acid 1.2 Urinalysis showed large leukocyte esterase with elevated RBCs and WBCs and WBC clumps with 4+ protein. 01/21/2022 Patient is seen and evaluated in follow-up this morning status post cystoscopy with urology following and underwent stent placement. Patient is maintained on IV ceftriaxone and urine cultures preliminary showing gram-negative bacilli and awaiting finalized cultures. Patient initially was slightly lower on the blood pressures and medications were being held although more hypertensive today and will resume home medications. Patient is afebrile reports that tolerating diet with no reports of nausea or vomiting noted. Reports his pain is well- controlled at this time. Patient continues with indwelling Mclean catheter for now. Review of systems: Constitutional: No reports of fatigue, fever, or chills Cardiovascular: No reports of chest pain or palpitations Respiratory: No reports of shortness of breath or cough GI: No reports of nausea, vomiting, or diarrhea : No reports of dysuria or retention Neurovascular: No reports of weakness or numbness All medications have been reviewed Active Medications Amlodipine Besylate (Amlodipine 5 Mg Tab) 5 mg PO DAILY [facility] Last Admin: 01/21/22 13:36 Dose: 5 mg Docusate Sodium (Docusate 100 Mg Cap) 100 mg PO BID [facility] Last Admin: 01/21/22 08:34 Dose: 100 mg Famotidine (Famotidine 20 Mg Tab) 20 mg PO HS [facility] Last Admin: 01/20/22 21:51 Dose: 20 mg Heparin Sodium (Porcine) (Heparin Sodium,Porcine/Pf 5,000 Unit/0.5 Ml Syringe) 5,000 unit SQ Q8HR [facility] Last Admin: 01/21/22 08:34 Dose: 5,000 unit Hydralazine HCl (Hydralazine Hcl 50 Mg Tab) 50 mg PO BID [facility] Last Admin: 01/21/22 13:36 Dose: 50 mg Sodium Chloride (Saline 0.9%) 1,000 mls @ 130 mls/hr IV .Q7H42M [facility] Last Admin: 01/21/22 08:34 Dose: 130 mls/hr Ceftriaxone Sodium 1 gm/ (Sodium Chloride) 50 mls @ 100 mls/hr IVPB Q12HR [facility]; Protocol Last Admin: 01/21/22 08:35 Dose: 100 mls/hr Labetalol HCl (Labetalol 100 Mg Tab) 300 mg PO BID [facility] Last Admin: 01/21/22 13:36 Dose: 300 mg Lactic Acid (Ammonium Lactate 12% Lotion 225 Gm Btl) 1 applic TOPICAL DAILY [facility]; Protocol Last Admin: 01/21/22 13:38 Dose: 1 applic Lisinopril (Lisinopril 20 Mg Tab) 20 mg PO QAM [facility] Morphine Sulfate (Morphine Sulfate 4 Mg/Ml Syringe) 4 mg IV Q4HR PRN PRN Reason: Severe Pain (Scale 7 to 10) Multivitamins (Multivitamins, Thera 1 Each Tab) 1 each PO BID [facility] Last Admin: 01/21/22 13:36 Dose: 1 each Naloxone HCl (Naloxone 0.4 Mg/Ml 1 Ml Vial) 0.2 mg IV Q2M PRN PRN Reason: Opioid Reversal Ondansetron HCl (Ondansetron 4 Mg/2 Ml Vial) 4 mg IVP Q8HR PRN PRN Reason: Nausea And Vomiting Pravastatin Sodium (Pravastatin Sodium 40 Mg Tab) 40 mg PO HS@2100 [facility] Last Admin: 01/20/22 22:35 Dose: 40 mg Tamsulosin HCl (Tamsulosin 0.4 Mg Cap.Er.24h) 0.4 mg PO HS [facility] Last Admin: 01/20/22 21:51 Dose: 0.4 mg Venlafaxine HCl (Venlafaxine Hcl 37.5 Mg Tab) 37.5 mg PO BID [facility] Last Admin: 01/21/22 08:34 Dose: 37.5 mg PHYSICAL EXAMINATION: Patient is lying in the bed comfortably, no acute distress, awake alert and oriented.. Able to answer simple questions. HEENT: Normocephalic. Neck is supple. Pupils reactive. Nostrils clear. Oral cavity is moist. Neck reveals no JVD, carotid bruits, or thyromegaly. CHEST EXAMINATION: Trachea is central. Symmetrical expansion. Lung hernandes clear to auscultation and percussion. Bibasilar diminished sounds. CARDIAC: Normal S1, S2 with no gallops. No murmurs ABDOMEN: Soft. Bowel sounds present. Left flank tenderness.. No organomegaly. No abdominal bruits. Extremities: reveal no edema. No clubbing or cyanosis Neurologically awake, alert, oriented x3. Patient does have left-sided weakness. Skin: No rash or skin lesions. Psychiatric: Cooperative. Non-suicidal, Musculoskeletal: No joint swelling or deformity. Assessment: Obstructing calculus at the left ureteropelvic junction status post cystoscopy and stent placement of the ureter Multiple bilateral renal calculi Left-sided abdominal pain secondary to above Acute urinary tract infection, present on admission Sepsis, present on admission secondary to above acute kidney injury secondary to obstructing calculus, improving History of CVA Residual weakness. Hypertension Hyperlipidemia DVT prophylaxis with heparin subcu Plan: Patient will be current on IV hydration with normal saline although will decrease the rate. Follow up labs recommended. Resuming home blood pressure medication as blood pressure is elevated. . Continue with antibiotics in the form of ceftriaxone and follow-up urine culture report. Preliminary is gram negative bacilli Continue with pain management and urology following. Continue to follow closely. Prognosis is guarded at this time. Will await urine culture report to determine discharge abx. Repeat am labs. The impression and plan of care has been dictated by Violet Ribeiro, Nurse Practitioner as directed. Dr. Balbir MD I have performed a history and examination and MDM of this patient, discussed the same with the dictator, and agree with the dictator's assessment and plan as written ,documented as a scribe. Based on total visit time, I have performed more than 50% of the visit. Objective - Vital Signs Vital signs: Vital Signs Temp 97.8 F 01/21/22 05:00 Pulse 74 01/21/22 05:00 Resp 16 01/21/22 05:00 BP 166/91 01/21/22 05:00 Pulse Ox 98 01/21/22 05:00 FiO2 Intake & Output 01/20/22 01/21/22 01/21/22 18:59 06:59 18:59 Intake Total 730 590 Output Total 610 1000 1000 Balance 120 -410 -1000 Intake: IV 600 Intake, IV Titration 130 Amount Sodium Chloride 0.9% 1, 130 000 ml @ 130 mls/hr IV . Q7H42M [facility] Rx#:[id number] Oral 590 Output: Urine 600 1000 1000 Estimated Blood Loss 10 Other: Voiding Method Indwelling Catheter Indwelling Catheter Indwelling Catheter - Labs CBC & Chem 7: 01/21/22 05:36 01/21/22 05:36 Labs: Abnormal Lab Results - Last 24 Hours (Table) 01/21/22 01/21/22 Range/Units 05:36 05:36 RBC 3.82 L (4.40-5.60) X 10*6/uL Hgb 11.6 L (13.0-17.0) g/dL Hct 34.9 L (39.6-50.0) % Immature Gran # 0.06 H (0.00-0.04) X 10*3/uL Lymphocytes # 0.55 L (0.90-5.00) X 10*3/uL Eosinophils # 0 L (0.04-0.35) X 10*3/uL BUN 40.1 H (9.0-27.0) mg/dL Est GFR (CKD-EPI)NonAf 52.7 L (60.0-200.0) BUN/Creatinine Ratio 28.64 H (12.00-20.00) Ratio Glucose 133 H (70-110) mg/dL Calcium 8.3 L (8.7-10.3) mg/dL Microbiology - Last 24 Hours (Table) 01/20/22 14:41 Urine Culture - Preliminary Urine,Catheterized 01/19/22 20:15 Blood Culture - Preliminary Blood No Growth after 24 hours 01/19/22 20:05 Blood Culture - Preliminary Blood No Growth after 24 hours 01/19/22 21:47 Urine Culture - Preliminary Urine,Clean Catch Gram Neg Bacilli 01/19/22 22:00 Urine Culture - Preliminary Urine,Voided Gram Neg Bacilli
[2022-01-21] MEDS: FAMOTIDINE 20 MG TAB PO SCH (20:19)
[2022-01-21] MEDS: TAMSULOSIN 0.4 MG CAP.ER.24H PO SCH (20:19)
[2022-01-21] MEDS: PRAVASTATIN SODIUM 40 MG TAB PO SCH (20:20)
[2022-01-22] MEDS: HEPARIN SODIUM,PORCINE/PF 5,000 UNIT/0.5 ML SYRINGE SQ SCH ×2 (08:35→15:48)
[2022-01-22] MEDS: DOCUSATE 100 MG CAP PO SCH ×2 (08:35→20:39)
[2022-01-22] MEDS: MULTIVITAMINS, THERA 1 EACH TAB PO SCH ×2 (08:36→20:40)
[2022-01-22] MEDS: VENLAFAXINE HCL 37.5 MG TAB PO SCH ×2 (08:37→20:41)
[2022-01-22] MEDS: amLODIPine 5 MG TAB PO SCH (08:37)
[2022-01-22] MEDS: lisinopriL 20 MG TAB PO SCH (08:37)
[2022-01-22] MEDS: LABETALOL 100 MG TAB PO SCH ×2 (08:37→20:41)
[2022-01-22] MEDS: hydrALAZINE HCL 50 MG TAB PO SCH ×2 (08:38→20:40)
[2022-01-22] MEDS: AMMONIUM LACTATE 12% LOTION 225 GM BTL TOPICAL SCH (08:38)
[2022-01-22 08:44] LABS: Basophils % (A) 0 %; Eosinophils # (A) 0.2 k/uL (0-0.7); Eosinophils % (A) 2 %; HCT 35.6 % (39.0-53.0); Lymphocytes # (A) 1.2 k/uL (1.0-4.8); Lymphocytes % (A) 15 %; MCH 30.6 pg (25.0-35.0); MCHC 33.6 g/dL (31.0-37.0); MCV 91.1 fL (80.0-100.0); Mean Platelet Volume 7.6; Monocytes # (A) 0.6 k/uL (0-1.0); Monocytes % (A) 7 %; Neutrophils # (A) 5.7 k/uL (1.3-7.7); Neutrophils % (A) 73 %; Platelet Count 172 k/uL (150-450); RBC 3.91 m/uL (4.30-5.90); RDW 13.1 % (11.5-15.5); WBC 7.8 k/uL (3.8-10.6)
[2022-01-22 09:03] LABS: African American GFR (CKD) 80 (>60 ml/min/1.73 sqM); Anion Gap 7 mmol/L; Blood Urea Nitrogen 25 mg/dL (9-20); Carbon Dioxide 23 mmol/L (22-30); Chloride 109 mmol/L (98-107); Glucose 87 mg/dL (74-99); Non-African American GFR(CKD) 69 (>60 ml/min/1.73 sqM); Potassium 3.5 mmol/L (3.5-5.1); Sodium 139 mmol/L (137-145)
--- NOTE | 2022-01-22 10:30 | P.PN ---
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 The stent was placed 48 hours ago on the left side. His bladder was markedly inflamed and there is a lot of stone. The patient states that he is not had any problems with urination however given that he is incontinent of stool I question the validity of this was the patient's ability to recognize his I'll bladder function. Whether this is due to the stroke or not is indeterminate. Present his urine is clear. We'll keep indwelling catheter. The patient will need urologic evaluation of his bladder as an outpatient. He also need stone and stent removal at a later date. Objective - Vital Signs Vital signs: Vital Signs Temp 97.8 F 01/22/22 05:30 Pulse 79 01/22/22 08:00 Resp 18 01/22/22 05:30 BP 146/79 01/22/22 08:00 Pulse Ox 96 01/22/22 05:30 FiO2 Intake & Output 01/21/22 01/22/22 01/22/22 18:59 06:59 18:59 Intake Total 880 Output Total 3200 720 1000 Balance -3200 160 -1000 Intake: Oral 880 Output: Urine 3200 720 1000 Other: Voiding Method Indwelling Catheter Indwelling Catheter # Bowel Movements 0 1 - Labs CBC & Chem 7: 01/22/22 08:12 01/22/22 08:12 Labs: Abnormal Lab Results - Last 24 Hours (Table) 01/22/22 01/22/22 Range/Units 08:12 08:12 RBC 3.91 L (4.30-5.90) m/uL Hgb 12.0 L (13.0-17.5) gm/dL Hct 35.6 L (39.0-53.0) % Chloride 109 H (98-107) mmol/L BUN 25 H (9-20) mg/dL Calcium 8.0 L (8.4-10.2) mg/dL Microbiology - Last 24 Hours (Table) 01/19/22 20:15 Blood Culture - Preliminary Blood No Growth after 48 hours 01/19/22 20:05 Blood Culture - Preliminary Blood No Growth after 48 hours 01/19/22 21:47 Urine Culture - Preliminary Urine,Clean Catch Gram Neg Bacilli Escherichia coli
[2022-01-22] MEDS: SODIUM CHLORIDE 0.9% 1,000 ML IV SCH ×2 (10:52→20:40)
[2022-01-22] MEDS ORDERED: POTASSIUM CHLORIDE ER 20 MEQ TAB.ER PO STA (13:55)
[2022-01-22] MEDS: IBUPROFEN 400 MG TAB PO PRN (14:12)
[2022-01-22] MEDS: TAMSULOSIN 0.4 MG CAP.ER.24H PO SCH (20:39)
[2022-01-22] MEDS: FAMOTIDINE 20 MG TAB PO SCH (20:39)
[2022-01-22] MEDS: PRAVASTATIN SODIUM 40 MG TAB PO SCH (20:41)
[2022-01-23] MEDS: SODIUM CHLORIDE 0.9% 1,000 ML IV SCH ×3 (04:44→22:33)
[2022-01-23] MEDS: HEPARIN SODIUM,PORCINE/PF 5,000 UNIT/0.5 ML SYRINGE SQ SCH ×4 (06:53→23:37)
[2022-01-23] MEDS: MULTIVITAMINS, THERA 1 EACH TAB PO SCH ×2 (08:22→21:35)
[2022-01-23] MEDS: DOCUSATE 100 MG CAP PO SCH ×2 (08:23→21:35)
[2022-01-23] MEDS: hydrALAZINE HCL 50 MG TAB PO SCH ×2 (08:23→21:35)
[2022-01-23] MEDS: lisinopriL 20 MG TAB PO SCH (08:23)
[2022-01-23] MEDS: LABETALOL 100 MG TAB PO SCH ×2 (08:23→21:35)
[2022-01-23] MEDS: amLODIPine 5 MG TAB PO SCH (08:23)
[2022-01-23] MEDS: VENLAFAXINE HCL 37.5 MG TAB PO SCH ×2 (08:24→21:35)
[2022-01-23] MEDS: AMMONIUM LACTATE 12% LOTION 225 GM BTL TOPICAL SCH (08:24)
[2022-01-23] MEDS: FAMOTIDINE 20 MG TAB PO SCH ×2 (08:24→21:35)
[2022-01-23 11:34] VITALS: RESP 18
[2022-01-23] MEDS: IBUPROFEN 400 MG TAB PO PRN (16:45)
--- NOTE | 2022-01-23 19:10 | P.PN ---
Subjective Progress Note Date: 01/23/22 stent was placed. At the time of surgery the patient was identified to have very purulent urine with alot of bladder stone. the findings were not consistent with his history. We again discussed this problem today and his symptoms dont match his findings. I suspect he has chronic incomplete emptying that due to his cva he is unaware of the severity of the symptoms. the cath was removed this am for a voiding trial and he voided frequent small amounts witha large pvr at 330ml. He has been on tamsulosin. He will need further evaluation as an outpatient to assess his bladder function. Objective - Vital Signs Vital signs: Vital Signs Temp 98.0 F 01/23/22 11:00 Pulse 72 01/23/22 11:00 Resp 18 01/23/22 11:00 BP 156/78 01/23/22 11:00 Pulse Ox 98 01/23/22 11:00 FiO2 Intake & Output 01/23/22 01/23/22 01/24/22 06:59 18:59 06:59 Intake Total 3980 Output Total 3000 1680 Balance -3000 2300 Intake: Intake, IV Titration 1300 Amount Sodium Chloride 0.9% 1, 1200 000 ml @ 75 mls/hr IV . [id number] [facility] Rx#:[id number] cefTRIAXone 1 gm In 100 Sodium Chloride 0.9% 50 ml @ 100 mls/hr IVPB Q12HR [facility] Rx#:[id number] Oral 2680 Output: Urine 3000 1350 Post Void Residual 330 Other: Voiding Method Indwelling Catheter # Voids 9 - Labs CBC & Chem 7: 01/22/22 08:12 01/22/22 08:12 Labs: Microbiology - Last 24 Hours (Table) 01/19/22 20:15 Blood Culture - Preliminary Blood No Growth after 72 hours 01/19/22 20:05 Blood Culture - Preliminary Blood No Growth after 72 hours 01/19/22 21:47 Urine Culture - Final Urine,Clean Catch Citrobacter farmeri Escherichia coli 01/19/22 22:00 Urine Culture - Final Urine,Voided Escherichia coli
[2022-01-23] MEDS: PRAVASTATIN SODIUM 40 MG TAB PO SCH (21:35)
[2022-01-23] MEDS: TAMSULOSIN 0.4 MG CAP.ER.24H PO SCH (21:35)
--- NOTE | 2022-01-24 02:04 | P.PN ---
Subjective Progress Note Date: 01/22/22 Patient is a 62-year-old male with a known history of CVA/TIA with left-sided weakness, hypertension, hyperlipidemia, bilateral lower extremity peripheral neuropathy, retinopathy and history of urinary retention was seen by his caregiver and sent to ER since he is not feeling well for the past 4 to 5 days. Patient started having fevers and sweats and has been having decreased oral intake and loss of appetite. Patient was brought to the hospital by his for evaluation. Patient does have pain in the left side of the abdomen. No complaints of vomiting. Patient states that his urine has become more concentrated and cloudy. No prior history of renal stones. Abdominal surgeries. On admission blood pressure was low 86/58 and pulse ox 96% on room air. Afebrile on admission. Chest x-ray showed minimal pleural reaction at the left posterior lung base. Normal heart. KUB x-ray showed nonacute abdomen. CT of abdomen pelvis showed obstructing calculus at the left ureteropelvic junction. Numerous bilateral renal calculi. Large calcification in the pelvis could be calculus. Large bladder div erticulum. Correlation with patient's surgical history needed. Managed usual prostate calcifications are also possible. Coronary diverticulosis without diverticulitis. Mild rectal fecal impaction. Laboratory data showed WBC 16.1 hemoglobin 13.1 and platelets 174 BUN 66 and creatinine 2.34 and sodium 135 Magnesium 2.8 lactic acid 1.2 Urinalysis showed large leukocyte esterase with elevated RBCs and WBCs and WBC clumps with 4+ protein. 01/21/2022 Patient is seen and evaluated in follow-up this morning status post cystoscopy with urology following and underwent stent placement. Patient is maintained on IV ceftriaxone and urine cultures preliminary showing gram-negative bacilli and awaiting finalized cultures. Patient initially was slightly lower on the blood pressures and medications were being held although more hypertensive today and will resume home medications. Patient is afebrile reports that tolerating diet with no reports of nausea or vomiting noted. Reports his pain is well- controlled at this time. Patient continues with indwelling Mclean catheter for now. 01/22/2022 Patient is resting in the bed. Awake alert and oriented x3. S/p stent placement due to obstructing ureteral stone. Urine culture is growing gram-negative bacilli. Denies any complaints of abdominal pain. Patient is Mclean catheter. No complaints of fever or chills. No nausea vomiting abdominal pain or diarrhea. No cough or sputum production. Laboratory data showed WBC 7.8 hemoglobin 12.0 and platelets 172 Sodium 139 potassium 3.5 chloride 109 bicarb is 23 BUN 25 creatinine 1.12 Urology is on board. Current medications reviewed. Review of systems: Constitutional: No reports of fatigue, fever, or chills Cardiovascular: No reports of chest pain or palpitations Respiratory: No reports of shortness of breath or cough GI: No reports of nausea, vomiting, or diarrhea : No reports of dysuria or retention Neurovascular: No reports of weakness or numbness All medications have been reviewed Active Medications Amlodipine Besylate (Amlodipine 5 Mg Tab) 5 mg PO DAILY [facility] Last Admin: 01/21/22 13:36 Dose: 5 mg Docusate Sodium (Docusate 100 Mg Cap) 100 mg PO BID [facility] Last Admin: 01/21/22 08:34 Dose: 100 mg Famotidine (Famotidine 20 Mg Tab) 20 mg PO HS [facility] Last Admin: 01/20/22 21:51 Dose: 20 mg Heparin Sodium (Porcine) (Heparin Sodium,Porcine/Pf 5,000 Unit/0.5 Ml Syringe) 5,000 unit SQ Q8HR [facility] Last Admin: 01/21/22 08:34 Dose: 5,000 unit Hydralazine HCl (Hydralazine Hcl 50 Mg Tab) 50 mg PO BID [facility] Last Admin: 01/21/22 13:36 Dose: 50 mg Sodium Chloride (Saline 0.9%) 1,000 mls @ 130 mls/hr IV .Q7H42M [facility] Last Admin: 01/21/22 08:34 Dose: 130 mls/hr Ceftriaxone Sodium 1 gm/ (Sodium Chloride) 50 mls @ 100 mls/hr IVPB Q12HR [facility]; Protocol Last Admin: 01/21/22 08:35 Dose: 100 mls/hr Labetalol HCl (Labetalol 100 Mg Tab) 300 mg PO BID [facility] Last Admin: 01/21/22 13:36 Dose: 300 mg Lactic Acid (Ammonium Lactate 12% Lotion 225 Gm Btl) 1 applic TOPICAL DAILY [facility]; Protocol Last Admin: 01/21/22 13:38 Dose: 1 applic Lisinopril (Lisinopril 20 Mg Tab) 20 mg PO QAM [facility] Morphine Sulfate (Morphine Sulfate 4 Mg/Ml Syringe) 4 mg IV Q4HR PRN PRN Reason: Severe Pain (Scale 7 to 10) Multivitamins (Multivitamins, Thera 1 Each Tab) 1 each PO BID [facility] Last Admin: 01/21/22 13:36 Dose: 1 each Naloxone HCl (Naloxone 0.4 Mg/Ml 1 Ml Vial) 0.2 mg IV Q2M PRN PRN Reason: Opioid Reversal Ondansetron HCl (Ondansetron 4 Mg/2 Ml Vial) 4 mg IVP Q8HR PRN PRN Reason: Nausea And Vomiting Pravastatin Sodium (Pravastatin Sodium 40 Mg Tab) 40 mg PO HS@2100 [facility] Last Admin: 01/20/22 22:35 Dose: 40 mg Tamsulosin HCl (Tamsulosin 0.4 Mg Cap.Er.24h) 0.4 mg PO HS [facility] Last Admin: 01/20/22 21:51 Dose: 0.4 mg Venlafaxine HCl (Venlafaxine Hcl 37.5 Mg Tab) 37.5 mg PO BID [facility] Last Admin: 01/21/22 08:34 Dose: 37.5 mg PHYSICAL EXAMINATION: Patient is lying in the bed comfortably, no acute distress, awake alert and oriented.. Able to answer simple questions. HEENT: Normocephalic. Neck is supple. Pupils reactive. Nostrils clear. Oral cavity is moist. Neck reveals no JVD, carotid bruits, or thyromegaly. CHEST EXAMINATION: Trachea is central. Symmetrical expansion. Lung hernandes clear to auscultation and percussion. Bibasilar diminished sounds. CARDIAC: Normal S1, S2 with no gallops. No murmurs ABDOMEN: Soft. Bowel sounds present. Left flank tenderness.. No organomegaly. No abdominal bruits. Extremities: reveal no edema. No clubbing or cyanosis Neurologically awake, alert, oriented x3. Patient does have left-sided weakness. Skin: No rash or skin lesions. Psychiatric: Cooperative. Non-suicidal, Musculoskeletal: No joint swelling or deformity. Assessment: Obstructing calculus at the left ureteropelvic junction status post cystoscopy and stent placement of the ureter Multiple bilateral renal calculi Left-sided abdominal pain secondary to above Acute urinary tract infection with gm negative Bacilli Sepsis, present on admission secondary to above acute kidney injury secondary to obstructing calculus, improving History of CVA Residual weakness. Hypertension Hyperlipidemia DVT prophylaxis with heparin subcu Plan: Patient will be current on IV hydration with normal saline although will decrease the rate. Follow up labs recommended. Resuming home blood pressure medication as blood pressure is elevated. . Continue with antibiotics in the form of ceftriaxone and follow-up urine culture report. Preliminary is gram negative bacilli Continue with pain management and urology following. Continue to follow closely. Prognosis is guarded at this time. Will await urine culture report to determine discharge abx. Repeat am labs. Objective - Vital Signs Vital signs: Vital Signs Temp 98.0 F 01/23/22 11:00 Pulse 72 01/23/22 11:00 Resp 18 01/23/22 11:00 BP 156/78 01/23/22 11:00 Pulse Ox 98 01/23/22 11:00 FiO2 Intake & Output 01/22/22 01/23/22 01/23/22 18:59 06:59 18:59 Intake Total 2980 Output Total 2500 3000 1680 Balance 480 -3000 -1680 Intake: Intake, IV Titration 1400 Amount Sodium Chloride 0.9% 1, 1300 000 ml @ 130 mls/hr IV . Q7H42M [facility] Rx#:[id number] cefTRIAXone 1 gm In 100 Sodium Chloride 0.9% 50 ml @ 100 mls/hr IVPB Q12HR [facility] Rx#:[id number] Oral 1580 Output: Urine 2500 3000 1350 Post Void Residual 330 Other: Voiding Method Indwelling Catheter Indwelling Catheter # Voids 1 # Bowel Movements 1 - Labs CBC & Chem 7: 01/22/22 08:12 01/22/22 08:12 Labs: Microbiology - Last 24 Hours (Table) 01/19/22 20:15 Blood Culture - Preliminary Blood No Growth after 72 hours 01/19/22 20:05 Blood Culture - Preliminary Blood No Growth after 72 hours 01/19/22 21:47 Urine Culture - Final Urine,Clean Catch Citrobacter farmeri Escherichia coli 01/19/22 22:00 Urine Culture - Final Urine,Voided Escherichia coli
--- NOTE | 2022-01-24 02:06 | P.PN ---
Subjective Progress Note Date: 01/23/22 Patient is a 62-year-old male with a known history of CVA/TIA with left-sided weakness, hypertension, hyperlipidemia, bilateral lower extremity peripheral neuropathy, retinopathy and history of urinary retention was seen by his caregiver and sent to ER since he is not feeling well for the past 4 to 5 days. Patient started having fevers and sweats and has been having decreased oral intake and loss of appetite. Patient was brought to the hospital by his for evaluation. Patient does have pain in the left side of the abdomen. No complaints of vomiting. Patient states that his urine has become more concentrated and cloudy. No prior history of renal stones. Abdominal surgeries. On admission blood pressure was low 86/58 and pulse ox 96% on room air. Afebrile on admission. Chest x-ray showed minimal pleural reaction at the left posterior lung base. Normal heart. KUB x-ray showed nonacute abdomen. CT of abdomen pelvis showed obstructing calculus at the left ureteropelvic junction. Numerous bilateral renal calculi. Large calcification in the pelvis could be calculus. Large bladder div erticulum. Correlation with patient's surgical history needed. Managed usual prostate calcifications are also possible. Coronary diverticulosis without diverticulitis. Mild rectal fecal impaction. Laboratory data showed WBC 16.1 hemoglobin 13.1 and platelets 174 BUN 66 and creatinine 2.34 and sodium 135 Magnesium 2.8 lactic acid 1.2 Urinalysis showed large leukocyte esterase with elevated RBCs and WBCs and WBC clumps with 4+ protein. 01/21/2022 Patient is seen and evaluated in follow-up this morning status post cystoscopy with urology following and underwent stent placement. Patient is maintained on IV ceftriaxone and urine cultures preliminary showing gram-negative bacilli and awaiting finalized cultures. Patient initially was slightly lower on the blood pressures and medications were being held although more hypertensive today and will resume home medications. Patient is afebrile reports that tolerating diet with no reports of nausea or vomiting noted. Reports his pain is well- controlled at this time. Patient continues with indwelling Mclean catheter for now. 01/22/2022 Patient is resting in the bed. Awake alert and oriented x3. S/p stent placement due to obstructing ureteral stone. Urine culture is growing gram-negative bacilli. Denies any complaints of abdominal pain. Patient is Mclean catheter. No complaints of fever or chills. No nausea vomiting abdominal pain or diarrhea. No cough or sputum production. Laboratory data showed WBC 7.8 hemoglobin 12.0 and platelets 172 Sodium 139 potassium 3.5 chloride 109 bicarb is 23 BUN 25 creatinine 1.12 Urology is on board. 01/23/2022 Patient is currently resting in bed. No complaints of abdominal pain. No nausea vomiting or diarrhea. No headache or dizziness lightheadedness. Urine culture showing E. coli and Citrobacter. Currently on antibiotics in the form of ceftriaxone. Mclean catheter has been discontinued by urology. Patient does have minimal urine output. Afebrile. Tolerating oral diet. No headache or dizziness or lightheadedness. Follow-up CBC and BMP tomorrow and anticipate discharge once cleared by urology Current medications reviewed. Review of systems: Constitutional: No reports of fatigue, fever, or chills Cardiovascular: No reports of chest pain or palpitations Respiratory: No reports of shortness of breath or cough GI: No reports of nausea, vomiting, or diarrhea : No reports of dysuria or retention Neurovascular: No reports of weakness or numbness All medications have been reviewed Active Medications Amlodipine Besylate (Amlodipine 5 Mg Tab) 5 mg PO DAILY [facility] Last Admin: 01/21/22 13:36 Dose: 5 mg Docusate Sodium (Docusate 100 Mg Cap) 100 mg PO BID [facility] Last Admin: 01/21/22 08:34 Dose: 100 mg Famotidine (Famotidine 20 Mg Tab) 20 mg PO HS [facility] Last Admin: 01/20/22 21:51 Dose: 20 mg Heparin Sodium (Porcine) (Heparin Sodium,Porcine/Pf 5,000 Unit/0.5 Ml Syringe) 5,000 unit SQ Q8HR [facility] Last Admin: 01/21/22 08:34 Dose: 5,000 unit Hydralazine HCl (Hydralazine Hcl 50 Mg Tab) 50 mg PO BID [facility] Last Admin: 01/21/22 13:36 Dose: 50 mg Sodium Chloride (Saline 0.9%) 1,000 mls @ 130 mls/hr IV .Q7H42M [facility] Last Admin: 01/21/22 08:34 Dose: 130 mls/hr Ceftriaxone Sodium 1 gm/ (Sodium Chloride) 50 mls @ 100 mls/hr IVPB Q12HR [facility]; Protocol Last Admin: 01/21/22 08:35 Dose: 100 mls/hr Labetalol HCl (Labetalol 100 Mg Tab) 300 mg PO BID [facility] Last Admin: 01/21/22 13:36 Dose: 300 mg Lactic Acid (Ammonium Lactate 12% Lotion 225 Gm Btl) 1 applic TOPICAL DAILY [facility]; Protocol Last Admin: 01/21/22 13:38 Dose: 1 applic Lisinopril (Lisinopril 20 Mg Tab) 20 mg PO QAM [facility] Morphine Sulfate (Morphine Sulfate 4 Mg/Ml Syringe) 4 mg IV Q4HR PRN PRN Reason: Severe Pain (Scale 7 to 10) Multivitamins (Multivitamins, Thera 1 Each Tab) 1 each PO BID [facility] Last Admin: 01/21/22 13:36 Dose: 1 each Naloxone HCl (Naloxone 0.4 Mg/Ml 1 Ml Vial) 0.2 mg IV Q2M PRN PRN Reason: Opioid Reversal Ondansetron HCl (Ondansetron 4 Mg/2 Ml Vial) 4 mg IVP Q8HR PRN PRN Reason: Nausea And Vomiting Pravastatin Sodium (Pravastatin Sodium 40 Mg Tab) 40 mg PO HS@2100 [facility] Last Admin: 01/20/22 22:35 Dose: 40 mg Tamsulosin HCl (Tamsulosin 0.4 Mg Cap.Er.24h) 0.4 mg PO HS [facility] Last Admin: 01/20/22 21:51 Dose: 0.4 mg Venlafaxine HCl (Venlafaxine Hcl 37.5 Mg Tab) 37.5 mg PO BID [facility] Last Admin: 01/21/22 08:34 Dose: 37.5 mg PHYSICAL EXAMINATION: Patient is lying in the bed comfortably, no acute distress, awake alert and oriented.. Able to answer simple questions. HEENT: Normocephalic. Neck is supple. Pupils reactive. Nostrils clear. Oral cavity is moist. Neck reveals no JVD, carotid bruits, or thyromegaly. CHEST EXAMINATION: Trachea is central. Symmetrical expansion. Lung hernandes clear to auscultation and percussion. Bibasilar diminished sounds. CARDIAC: Normal S1, S2 with no gallops. No murmurs ABDOMEN: Soft. Bowel sounds present. Left flank tenderness.. No organomegaly. No abdominal bruits. Extremities: reveal no edema. No clubbing or cyanosis Neurologically awake, alert, oriented x3. Patient does have left-sided weakness. Skin: No rash or skin lesions. Psychiatric: Cooperative. Non-suicidal, Musculoskeletal: No joint swelling or deformity. Assessment: Obstructing calculus at the left ureteropelvic junction status post cystoscopy and stent placement of the ureter Multiple bilateral renal calculi Left-sided abdominal pain secondary to above Acute urinary tract infection with gm negative Bacilli Sepsis, present on admission secondary to above acute kidney injury secondary to obstructing calculus, improving History of CVA With left-sided weakness. Residual weakness. Hypertension Hyperlipidemia DVT prophylaxis with heparin subcu Plan: Patient will be current on IV hydration with normal saline although will decrease the rate. Follow up labs recommended. Resuming home blood pressure medication as blood pressure is elevated. . Continue with antibiotics in the form of ceftriaxone for uTI Ladan catheter has been discontinued today. Follow-up post void residual. Continue with pain management and urology following Continue to follow closely. Prognosis is guarded at this time. Will await urine culture report to determine discharge abx. Repeat am labs. Objective - Vital Signs Vital signs: Vital Signs Temp 98.0 F 01/23/22 11:00 Pulse 72 01/23/22 11:00 Resp 18 01/23/22 11:00 BP 156/78 01/23/22 11:00 Pulse Ox 98 01/23/22 11:00 FiO2 Intake & Output 01/22/22 01/23/22 01/23/22 18:59 06:59 18:59 Intake Total 2980 Output Total 2500 3000 1680 Balance 480 -3000 -1680 Intake: Intake, IV Titration 1400 Amount Sodium Chloride 0.9% 1, 1300 000 ml @ 130 mls/hr IV . Q7H42M [facility] Rx#:[id number] cefTRIAXone 1 gm In 100 Sodium Chloride 0.9% 50 ml @ 100 mls/hr IVPB Q12HR [facility] Rx#:[id number] Oral 1580 Output: Urine 2500 3000 1350 Post Void Residual 330 Other: Voiding Method Indwelling Catheter Indwelling Catheter # Voids 1 # Bowel Movements 1 - Labs CBC & Chem 7: 01/22/22 08:12 01/22/22 08:12 Labs: Microbiology - Last 24 Hours (Table) 01/19/22 20:15 Blood Culture - Preliminary Blood No Growth after 72 hours 01/19/22 20:05 Blood Culture - Preliminary Blood No Growth after 72 hours 01/19/22 21:47 Urine Culture - Final Urine,Clean Catch Citrobacter farmeri Escherichia coli 01/19/22 22:00 Urine Culture - Final Urine,Voided Escherichia coli
[2022-01-24 04:08] VITALS: BP 150/68; PULSE 50; TEMP 98.1
[2022-01-24] MEDS: HEPARIN SODIUM,PORCINE/PF 5,000 UNIT/0.5 ML SYRINGE SQ SCH (08:58)
[2022-01-24] MEDS: LABETALOL 100 MG TAB PO SCH (08:59)
[2022-01-24] MEDS: amLODIPine 5 MG TAB PO SCH (08:59)
[2022-01-24] MEDS: hydrALAZINE HCL 50 MG TAB PO SCH (08:59)
[2022-01-24] MEDS: VENLAFAXINE HCL 37.5 MG TAB PO SCH (08:59)
[2022-01-24] MEDS: MULTIVITAMINS, THERA 1 EACH TAB PO SCH (08:59)
[2022-01-24] MEDS: DOCUSATE 100 MG CAP PO SCH (09:00)
[2022-01-24] MEDS: lisinopriL 20 MG TAB PO SCH (09:00)
[2022-01-24] MEDS: FAMOTIDINE 20 MG TAB PO SCH (09:00)
[2022-01-24 09:20] LABS: Basophils # (A) 0.06 X 10*3/uL (0.00-0.10); Basophils % (A) 0.7 %; Eosinophils # (A) 0.64 X 10*3/uL (0.04-0.35); Eosinophils % (A) 7.6 %; HCT 35.4 % (39.6-50.0); HGB 11.9 g/dL (13.0-17.0); Immature Grans, Automated 0.7 %; Lymphocytes # (A) 1.58 X 10*3/uL (0.90-5.00); Lymphocytes % (A) 18.8 %; MCH 30.2 pg (27.0-32.0); MCHC 33.6 g/dL (32.0-37.0); MCV 89.8 fL (80.0-97.0); Mean Platelet Volume 9.3 fL (9.5-12.2); Monocytes % (A) 8.3 %; NRBC Per 100 WBC 0 /100 WBCS (0.0-0.0); Neutrophils # (A) 5.38 X 10*3/uL (1.80-7.70); Neutrophils % (A) 63.9 %; Platelet Count 184 X 10*3/uL (140-440); RBC 3.94 X 10*6/uL (4.40-5.60); WBC 8.42 X 10*3/uL (4.50-10.00)
[2022-01-24 10:05] LABS: African American GFR (CKD) 76.7 (60.0-200.0); Anion Gap 11.6 mmol/L (10.00-18.00); BUN/Creat Ratio 13.71 Ratio (12.00-20.00); Blood Urea Nitrogen 15.9 mg/dL (9.0-27.0); Carbon Dioxide 22.7 mmol/L (20.0-27.5); Non-African American GFR(CKD) 66.2 (60.0-200.0); Potassium 3.6 mmol/L (3.5-5.5)
[2022-01-24] MEDS: AMMONIUM LACTATE 12% LOTION 225 GM BTL TOPICAL SCH (10:48)
[2022-01-24] MEDS: IBUPROFEN 400 MG TAB PO PRN (13:34)
--- NOTE | 2022-01-24 14:03 | P.PN ---
Subjective Catheter was reinserted yesterday for a postvoid residual 350 mL's. He was having significant amount of frequency post Mclean removal. Denies any gross hematuria or dysuria this morning Objective - Vital Signs Vital signs: Vital Signs Temp 98.1 F 01/24/22 04:07 Pulse 50 L 01/24/22 04:07 Resp 18 01/24/22 04:07 BP 150/68 01/24/22 04:07 Pulse Ox 98 01/24/22 04:07 FiO2 Intake & Output 01/23/22 01/24/22 01/24/22 18:59 06:59 18:59 Intake Total 3980 Output Total 1680 2600 1400 Balance 2300 -2600 -1400 Intake: Intake, IV Titration 1300 Amount Sodium Chloride 0.9% 1, 1200 000 ml @ 75 mls/hr IV . [id number] [facility] Rx#:[id number] cefTRIAXone 1 gm In 100 Sodium Chloride 0.9% 50 ml @ 100 mls/hr IVPB Q12HR [facility] Rx#:[id number] Oral 2680 Output: Urine 1350 2600 1400 Post Void Residual 330 Other: Voiding Method Indwelling Catheter Indwelling Catheter # Voids 9 - Constitutional General appearance: Present: no acute distress - Genitourinary Genitourinary Comment(s): Mclean in place draining clear urine - Labs CBC & Chem 7: 01/24/22 05:46 01/24/22 05:46 Labs: Abnormal Lab Results - Last 24 Hours (Table) 01/24/22 Range/Units 05:46 RBC 3.94 L (4.40-5.60) X 10*6/uL Hgb 11.9 L (13.0-17.0) g/dL Hct 35.4 L (39.6-50.0) % MPV 9.3 L (9.5-12.2) fL Immature Gran # 0.06 H (0.00-0.04) X 10*3/uL Eosinophils # 0.64 H (0.04-0.35) X 10*3/uL Microbiology - Last 24 Hours (Table) 01/19/22 20:15 Blood Culture - Preliminary Blood No Growth after 96 hours 01/19/22 20:05 Blood Culture - Preliminary Blood No Growth after 96 hours Assessment and Plan Assessment: 62-year-old male admitted to the hospital with sepsis secondary to a ureteral stone, status post left stent insertion 01/20/22, at time of cystoscopy there was significant amount of purulent urine within the bladder. Failed trial of void yesterday, Mclean was reinserted -Can be discharged with a Mclean catheter, can follow-up as an outpatient with Dr. Parekh 1-2 weeks -We'll start Flomax, he'll will be discharged home on Flomax
== END 2022-01-24 15:50 | disposition home health service (06) | DRG 854 ==
LOC: EC 20:35 → 5NMEDONC 23:36
PROVIDERS: ADMIT Hospitalist; ATTEND Hospitalist
PROC: 0TCB8ZZ Extirpation of Matter from Bladder, Via Natural or Artificial Opening Endoscopic (ICD-10-PCS; principal; 2022-01-19)
PROC: 0T778DZ Dilation of Left Ureter with Intraluminal Device, Via Natural or Artificial Opening Endoscopic (ICD-10-PCS; principal; 2022-01-19)
DX: A41.50 Gram-negative sepsis, unspecified (principal); I69.354 Hemiplegia and hemiparesis following cerebral infarction affecting left non-dominant side; N13.6 Pyonephrosis; N17.9 Acute kidney failure, unspecified; E78.5 Hyperlipidemia, unspecified; E86.0 Dehydration; I10 Essential (primary) hypertension; G62.9 Polyneuropathy, unspecified; H35.00 Unspecified background retinopathy; K56.41 Fecal impaction; K57.90 Diverticulosis of intestine, part unspecified, without perforation or abscess without bleeding; R33.8 Other retention of urine; R35.0 Frequency of micturition; W19.XXXA Unspecified fall, initial encounter; N21.0 Calculus in bladder; N30.20 Other chronic cystitis without hematuria; N32.3 Diverticulum of bladder; Z20.822 Contact with and (suspected) exposure to COVID-19; I69.398 Other sequelae of cerebral infarction; Z99.3 Dependence on wheelchair; Z87.442 Personal history of urinary calculi; Z79.899 Other long term (current) drug therapy; Z79.83 Long term (current) use of bisphosphonates; Z79.82 Long term (current) use of aspirin; Z89.421 Acquired absence of other right toe(s); Z63.5 Disruption of family by separation and divorce
CPT/HCPCS: 36415; 71046; 74018; 74176; 80048; 80053; 81001; 82150; 82365; 83605; 83690; 83735; 84100; 85025; 87040; 87077; 87086; 87186; 87635; 96361; 96374; 96375; 99285

== ENCOUNTER → 2022-02-04 | Outpatient (CLI) | payer MEDICARE, BC ==
[2022-02-04 18:06] LABS: Basophils # (A) 0.12 X 10*3/uL (0.00-0.10); Basophils % (A) 1.2 %; Eosinophils # (A) 0.49 X 10*3/uL (0.04-0.35); HCT 38.3 % (39.6-50.0); HGB 12.2 g/dL (13.0-17.0); Immature Grans, Automated 0.3 %; Lymphocytes # (A) 1.82 X 10*3/uL (0.90-5.00); Lymphocytes % (A) 18.7 %; MCH 30.3 pg (27.0-32.0); MCHC 31.9 g/dL (32.0-37.0); Mean Platelet Volume 9.3 fL (9.5-12.2); Monocytes # (A) 0.59 X 10*3/uL (0.20-1.00); Monocytes % (A) 6.1 %; NRBC Per 100 WBC 0 /100 WBCS (0.0-0.0); Neutrophils # (A) 6.68 X 10*3/uL (1.80-7.70); Neutrophils % (A) 68.7 %; Platelet Count 274 X 10*3/uL (140-440); RBC 4.03 X 10*6/uL (4.40-5.60); RDW 13.3 % (11.5-14.5); WBC 9.73 X 10*3/uL (4.50-10.00)
[2022-02-04 19:14] LABS: African American GFR (CKD) 73.6 (60.0-200.0); Anion Gap 7.3 mmol/L (10.00-18.00); Blood Urea Nitrogen 19.2 mg/dL (9.0-27.0); Calcium 9.5 mg/dL (8.7-10.3); Carbon Dioxide 29.7 mmol/L (20.0-27.5); Non-African American GFR(CKD) 63.5 (60.0-200.0); Potassium 4.7 mmol/L (3.5-5.5)
== END | disposition home or self-care (01) ==
LOC: LABWHC1 10:21
PROVIDERS: ATTEND Internal Medicine
DX: D64.9 Anemia, unspecified (principal)
CPT/HCPCS: 36415; 80048; 85025; 87086

== ENCOUNTER 2022-05-03 08:31 | Day surgery (SDC) | payer MEDICARE, BC ==
[2022-05-03] MEDS ORDERED: ONDANSETRON 4 MG/2 ML VIAL ONE (09:20)
[2022-05-03] MEDS ORDERED: LACTATED RINGERS 1,000 ML IV ONE (09:22)
[2022-05-03] MEDS ORDERED: ONDANSETRON 4 MG/2 ML VIAL IVP ONE (09:22)
[2022-05-03 09:24] VITALS: TEMP 97
[2022-05-03] MEDS ORDERED: PROPOFOL 10 MG/ML 20 ML VIAL IV ONE (09:42)
--- NOTE | 2022-05-03 09:59 | P.PCN ---
Date of Procedure: 05/03/22 Procedure(s) Performed: BRIEF HISTORY: Patient is a 62-year-old pleasant white male scheduled for an elective colonoscopy as a part of evaluation of screening for colon cancer/positive cologuard. PROCEDURE PERFORMED: Colonoscopy with snare polypectomy. PREOPERATIVE DIAGNOSIS: Screening for colon cancer/positive cologuard. IV sedation per Anesthesia. PROCEDURE: After informed consent was obtained, the patient, was brought into the endoscopy unit. IV sedation was administered by Anesthesia under continuous monitoring. Digital rectal examination was normal. Initially the Olympus CF-160 flexible video colonoscope was then inserted in the rectum, gradually advanced into the cecum without any difficulty. Careful examination was performed as the scope was gradually being withdrawn. Ileocecal valve and the appendiceal orifice were visualized and appeared normal. Prep was excellent. Mucosa of the cecum appeared normal. In the ascending colon there was a 5 mm polyp removed by snare polypectomy. In the transverse colon there was another 5 mm polyp removed by snare polypectomy. Rest of the, ascending colon, transverse colon, descending colon, sigmoid colon, and rectum had blackish pigmentation consistent with melanosis coli. Scattered left-sided diverticulosis seen.. Retroflexion was pe rformed in the rectum and no lesions were seen. The patient tolerated the procedure well. IMPRESSION: 5 mm ascending colon polyp status post polypectomy 5 mm transverse colon polyp status post polypectomy Severe melanosis coli Scattered sigmoid diverticulosis RECOMMENDATIONS: Findings of this examination were discussed with the patient as well as his family. He was advised to follow with the biopsy results. If the biopsy report adenoma he can have a repeat colonoscopy in 5 years.
[2022-05-03] MEDS ORDERED: LACTATED RINGERS 1,000 ML IV SCH (10:02)
[2022-05-03 10:07] VITALS: RESP 16
[2022-05-03 10:24] VITALS: BP 123/74; PULSE 69
== END 2022-05-03 10:58 | disposition home or self-care (01) ==
LOC: ORWHC2ENDO 08:31
PROVIDERS: ATTEND Internal Medicine Gastroenterology
DX: D12.2 Benign neoplasm of ascending colon (principal); D12.3 Benign neoplasm of transverse colon; K57.30 Diverticulosis of large intestine without perforation or abscess without bleeding; K63.89 Other specified diseases of intestine; I10 Essential (primary) hypertension; E78.5 Hyperlipidemia, unspecified; I69.354 Hemiplegia and hemiparesis following cerebral infarction affecting left non-dominant side; F32.A Depression, unspecified; M54.9 Dorsalgia, unspecified; Z79.899 Other long term (current) drug therapy
CPT/HCPCS: 45385; J2405; J2704; 88305

== ENCOUNTER 2023-10-10 11:08 | Emergency (ER) | payer MEDICARE, BC ==
[2023-10-10 11:34] VITALS: TEMP 98.3
--- NOTE | 2023-10-10 11:41 | ED ---
Abdominal Pain HPI - General Chief Complaint: Abdominal Pain Stated Complaint: vomitting/nausea/abd pain Time Seen by Provider: 10/10/23 11:32 Source: patient, RN notes reviewed Mode of arrival: wheelchair Limitations: no limitations - History of Present Illness Initial Comments: This is a 63-year-old male with a history of CVA and left-sided deficits who presents emergency department chief complaint of pelvic pain or abdominal discomfort that started this morning. Patient states that the pain is located currently to his right lower pelvis. Patient does have a Mclean catheter in place and caregiver at bedside states that the urine output this morning was dark in color. Patient had an episode of emesis this morning. The patient is denying shortness of breath, chest pressure, headaches, diarrhea, fevers, or chills. Patient has a history of nephrolithiasis and follows with Dr. Carson with his most recent appointment roughly 3 weeks ago. - Related Data Home Medications Medication Instructions Recorded Confirmed Ammonium Lactate Lotion 1 applic TOPICAL DAILY PRN 11/11/15 10/10/23 [Lac-Hydrin 12% Lotion] Pravastatin Sodium [Pravachol] 40 mg PO HS 11/11/15 10/10/23 Tamsulosin [Flomax] 0.4 mg PO HS 11/11/15 10/10/23 Venlafaxine HCl [Effexor] 37.5 mg PO BID 11/11/15 10/10/23 lisinopriL [Zestril] 20 mg PO DAILY 11/11/15 10/10/23 Alendronate Sodium [Fosamax] 70 mg PO COBURN 01/20/22 10/10/23 hydrALAZINE HCL [Apresoline] 50 mg PO BID 01/20/22 10/10/23 Alive Multi Mens High Potency 1 tab PO BID 10/10/23 10/10/23 Aloe Lax 1 tab PO BID 10/10/23 10/10/23 Aspirin 81 mg PO DAILY 10/10/23 10/10/23 Baclofen 10 mg PO DIRECTED PRN 10/10/23 10/10/23 Calcium/Magnesium (Unknown) 1 tab PO DAILY 10/10/23 10/10/23 Cholecalciferol [Vitamin D3 (25 25 mcg PO DAILY 10/10/23 10/10/23 Mcg = 1000 Iu)] Labetalol HCl 300 mg PO BID 10/10/23 10/10/23 polyethylene glycoL 3350 [Miralax] 17 gm PO DAILY PRN 10/10/23 10/10/23 Previous Rx's Medication Instructions Recorded amLODIPine [Norvasc] 5 mg PO DAILY tab 11/17/15 Ciprofloxacin HCl [Cipro] 500 mg PO Q12HR #14 tablet 10/10/23 HYDROcodone/APAP 10-325MG [[place] 1 tab PO Q6HR PRN 3 Days #12 tab 10/10/23 10-325] Ondansetron Odt [Zofran Odt] 4 mg PO Q8HR PRN #10 tab 10/10/23 Allergies Allergy/AdvReac Type Severity Reaction Status Date / Time cashew nut Allergy Unknown Verified 10/10/23 11:34 shellfish derived [Shellfish] Allergy Unknown Verified 10/10/23 11:34 Review of Systems ROS Statement: Those systems with pertinent positive or pertinent negative responses have been documented in the HPI. ROS Other: All systems not noted in ROS Statement are negative. 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 side, no recent issues with asthma, uses wheelchair requires transfer assistance. History of Any Multi-Drug Resistant Organisms: None Reported Past Surgical History: Orthopedic Surgery, Tonsillectomy Additional Past Surgical History / Comment(s): toes amputated right foot after traumatic injury, cyctoscopy, Left hip surgery. Past Anesthesia/Blood Transfusion Reactions: No Reported Reaction Past Psychological History: No Psychological Hx Reported Smoking Status: Never smoker - Past Family History Father Family Medical History: Cancer Additional Family Medical History / Comment(s): Father at age 41 from leukemia. Mother Family Medical History: CVA/TIA, Diabetes Mellitus, Hypertension Additional Family Medical History / Comment(s): Mother in her 70s from pneumonia. Sister(s) Additional Family Medical History / Comment(s): Patient has 2 sisters with no major medical problems. Patient does not have any brothers, no children. General Exam Limitations: no limitations General appearance: alert, in no apparent distress Head exam: Present: atraumatic, normocephalic, normal inspection Eye exam: Present: normal appearance, PERRL, EOMI. Absent: scleral icterus, conjunctival injection, periorbital swelling ENT exam: Present: normal exam, mucous membranes moist Neck exam: Present: normal inspection. Absent: tenderness, meningismus, lymphadenopathy Respiratory exam: Present: normal lung sounds bilaterally. Absent: respiratory distress, wheezes, rales, rhonchi, stridor Cardiovascular Exam: Present: regular rate, normal rhythm, normal heart sounds. Absent: systolic murmur, diastolic murmur, rubs, gallop, clicks GI/Abdominal exam: Present: soft, tenderness (right pelvic), normal bowel sounds. Absent: guarding, rebound Extremities exam: Present: normal inspection, full ROM, normal capillary refill. Absent: tenderness, pedal edema, joint swelling, calf tenderness Back exam: Present: normal inspection Neurological exam: Present: other (left sided motor deficit from previous CVA) Psychiatric exam: Present: normal affect, normal mood Skin exam: Present: warm, dry, intact, normal color. Absent: rash Course Vital Signs 10/10/23 10/10/23 10/10/23 11:29 13:12 15:05 Temperature 98.3 F 98.3 F Pulse Rate 64 72 82 Respiratory 18 18 16 Rate Blood Pressure 133/78 176/98 154/92 O2 Sat by Pulse 98 96 95 Oximetry Medical Decision Making - Medical Decision Making Was pt. sent in by a medical professional or institution ([facility], CRATE REPAIRER, urgent care, hospital, or usp...) When possible be specific @ -No Did you speak to anyone other than the patient for history (EMS, parent, family, police, friend...)? What history was obtained from this source @ -No Did you review nursing and triage notes (agree or disagree)? Why? @ -I reviewed and agree with nursing and triage notes Were old charts reviewed (outside hosp., previous admission, EMS record, old EKG, old radiological studies, urgent care reports/EKG's, usp records)? Report findings @ -No old charts were reviewed Differential Diagnosis (chest pain, altered mental status, abdominal pain women, abdominal pain men, vaginal bleeding, weakness, fever, dyspnea, syncope, headache, dizziness, GI bleed, back pain, seizure, CVA, palpatations, mental health, musculoskeletal)? @ -Differential Abdominal Pain Men: Appendicitis, cholecystitis, diverticulosis, ischemic bowel, pancreatitis, hepatitis, UTI, gastroenteritis, AAA, incarcerated hernia, bowel obstruction, constipation, inflammatory bowel, hepatitis, peptic ulcer disease, splenic infarction, perforated viscus, testicular torsion, this is not meant to be an all-inclusive list EKG interpreted by me (3pts min.). @ -None X-rays interpreted by me (1pt min.). @ -None done CT interpreted by me (1pt min.). @ -CT of the abdomen pelvis without contrast reveals mild right hydroureteronephrosis with an obstructing 4 mm calculus within the right mid ureter. Decompressed bladder with Mclean in place U/S interpreted by me (1pt. min.). @ -None done What testing was considered but not performed or refused? (CT, X-rays, U/S, labs)? Why? @ -None What meds were considered but not given or refused? Why? @ -None Did you discuss the management of the patient with other professionals (professionals i.e. , PA, CRATE REPAIRER, lab, RT, psych nurse, perinatal social worker, histology supervisor, t eacher, morale officer, case liner)? Give summary @ -Spoke to the on-call urologist, Dr. Conde, explained the patient's case to him. It is recommended that if the patient's vitals are stable, pain is well- managed that he is stable for outpatient treatment with oral antibiotics. Was recommended the patient be discharged home with oral 500, 2 times a day for a week. Was smoking cessation discussed for >3mins.? @ -No Was critical care preformed (if so, how long)? @ -No Were there social determinants of health that impacted care today? How? (Homelessness, low income, unemployed, alcoholism, drug addiction, transportation, low edu. Level, literacy, decrease access to med. care, residential, rehab)? @ -No Was there de-escalation of care discussed even if they declined (Discuss DNR or withdrawal of care, Hospice)? DNR status @ -No What co-morbidities impacted this encounter? (DM, HTN, Smoking, COPD, CAD, Cancer, CVA, ARF, Chemo, Hep., AIDS, mental health diagnosis, sleep apnea, morbid obesity)? @ -None Was patient admitted / discharged? Hospital course, mention meds given and route, prescriptions, significant lab abnormalities, going to OR and other pertinent info. @ -63-year-old male with right lower abdominal pelvic pain. On examination patient's pain is reproducible no signs of rebound tenderness or rigidity. Patient's vitals are stable upon arrival. He will be evaluated via laboratory studies in addition to CT of the abdomen for potential kidney stone. Additionally patient's Mclean catheter will be replaced and a clean urine sample will be sent for evaluation of urinary tract infection. Patient was provided with Zofran, pain medication, and IV fluids on arrival. urinalysis remarkable for signs of infection including large leukocyte esterase, greater than 182 wh ite blood cells and many white blood cell clumps, CMP and CBC no acute findings. Consult recommends that patient be discharged with oral antibiotics for urinary tract infection. Patient will also be provided with prescription for Zofran and pain medication to take as needed over the next few days. Recommend that patient follows up with his urologist next week for further evaluation. All questions answered at bedside and strict return parameters discussed with the patient who is verbalized understanding. Case discussed with Dr. Pinedo Undiagnosed new problem with uncertain prognosis? @ -No Drug Therapy requiring intensive monitoring for toxicity (Heparin, Nitro, Insulin, Cardizem)? @ -No Were any procedures done? @ -No Diagnosis/symptom? @ -neprholithiasis, urinary tract infection Acute, or Chronic, or Acute on Chronic? @ -acute Uncomplicated (without systemic symptoms) or Complicated (systemic symptoms)? @ -uncomplicated Side effects of treatment? @ -No Exacerbation, Progression, or Severe Exacerbation? @ -No Poses a threat to life or bodily function? How? (Chest pain, [place], [place], pneumonia, PE, COPD, DKA, ARF, appy, cholecystitis, CVA, Diverticulitis, Homicidal, Suic idal, threat to staff... and all critical care pts) @ -No - Lab Data Result diagrams: 10/10/23 13:02 10/10/23 13: Lab Results 10/10/23 10/10/23 10/10/23 Range/Units 13:02 13: 13: WBC 10.9 H (3.8-10.6) k/uL RBC 4.54 (4.30-5.90) m/uL Hgb 14.0 (13.0-17.5) gm/dL Hct 40.4 (39.0-53.0) % MCV 89.0 (80.0-100.0) fL MCH 30.8 (25.0-35.0) pg MCHC 34.5 (31.0-37.0) g/dL RDW 13.4 (11.5-15.5) % Plt Count 211 (150-450) k/uL MPV 7.5 Neutrophils % 85 % Lymphocytes % 8 % Monocytes % 5 % Eosinophils % 1 % Basophils % 0 % Neutrophils # 9.2 H (1.3-7.7) k/uL Lymphocytes # 0.9 L (1.0-4.8) k/uL Monocytes # 0.6 (0-1.0) k/uL Eosinophils # 0.1 (0-0.7) k/uL Basophils # 0.0 (0-0.2) k/uL Sodium 139 (137-145) mmol/L Potassium 3.9 (3.5-5.1) mmol/L Chloride 108 H (98-107) mmol/L Carbon Dioxide 24 (22-30) mmol/L Anion Gap 7 mmol/L BUN 21 H (9-20) mg/dL Creatinine 1.28 H (0.66-1.25) mg/dL Est GFR (CKD-EPI)AfAm 68 (>60 ml/min/1.73 sqM) Est GFR (CKD-EPI)NonAf 58 (>60 ml/min/1.73 sqM) Glucose 113 H (74-99) mg/dL Calcium 9.4 (8.4-10.2) mg/dL Total Bilirubin 0.6 (0.2-1.3) mg/dL AST 28 (17-59) U/L ALT 19 (4-49) U/L Alkaline Phosphatase 81 (38-126) U/L Total Protein 6.7 (6.3-8.2) g/dL Albumin 3.8 (3.5-5.0) g/dL Lipase 128 (23-300) U/L Urine Color Light Yellow Urine Appearance Turbid (Clear) Urine pH 6.0 (5.0-8.0) Ur Specific [place] 1.015 (1.001-1.035) Urine Protein 1+ H (Negative) Urine Glucose (UA) Negative (Negative) Urine Ketones 1+ H (Negative) Urine Blood Large H (Negative) Urine Nitrite Positive (Negative) Urine Bilirubin Negative (Negative) Urine Urobilinogen <2.0 (<2.0) mg/dL Ur Leukocyte Esterase Large H (Negative) Urine RBC 96 H (0-5) /hpf Urine WBC >182 H (0-5) /hpf Urine WBC Clumps Many H (None) /hpf Ur Squamous Epith Cells 3 (0-4) /hpf Urine Bacteria Occasional H (None) /hpf Urine Mucus Rare H (None) /hpf Disposition Clinical Impression: Nephrolithiasis, Urinary tract infection Disposition: HOME SELF-CARE Condition: Good Instructions (If sedation given, give patient instructions): Kidney Stones (ED) Additional Instructions: Return to the emergency department if symptoms worsen or not improved. Complete full course of antibiotics as prescribed. Recommend you follow-up with your urologist in the next week for further evaluation. Prescriptions: Ciprofloxacin HCl [Cipro] 500 mg PO Q12HR #14 tablet HYDROcodone/APAP 10-325MG [[place] 10-325] 1 tab PO Q6HR PRN 3 Days #12 tab PRN Reason: Pain Ondansetron Odt [Zofran Odt] 4 mg PO Q8HR PRN #10 tab PRN Reason: Nausea Is patient prescribed a controlled substance at d/c from ED?: Yes When asked, does pt state using other controlled substances?: No If prescribed controlled substance>3 days was MAPS reviewed?: Prescribed <3 Days Referrals: Pillo Quintana DO [Primary Care Provider] - 1-2 days Time of Disposition: 15:43
--- NOTE | 2023-10-10 12:35 | CT ---
EXAMINATION TYPE: CT abdomen pelvis wo con CT DLP: 892.9 mGycm, Automated exposure control for dose reduction was used. DATE OF EXAM: 10/10/2023 12:21 PM COMPARISON: CT angiogram 05/24/2022 CLINICAL INDICATION:Male, 63 years old with history of right flank and pelvic pain; right flank and p elvic pain TECHNIQUE: Standard CT of the abdomen and pelvis without IV or oral contrast. Lack of IV or oral co ntrast limits evaluation of solid and hollow organ viscera. Coronal and sagittal reformats were perfo rmed. FINDINGS: LOWER CHEST: Trace left pleural effusion. Calcified granulomas identified within the visualized lung bases. ABDOMEN LIVER: Unremarkable noncontrast appearance. GALLBLADDER AND BILE DUCTS: Gallbladder contracted with stones identified. No biliary ductal dilatati on. PANCREAS: Pancreatic head punctate calcifications identified. SPLEEN: Unremarkable noncontrast appearance. ADRENAL GLANDS: Unremarkable noncontrast appearance.. KIDNEYS AND URETERS: Left renal superior pole cyst measuring up to 1.8 cm. Right renal superior pole 3.0 cm cyst. No left hydronephrosis. There are 3 nonobstructive left renal calculi with largest measu ring up to 6 mm. Mild right hydroureteronephrosis. There is right perinephric and ureteral fat strand ing. Obstructing calculus identified within the mid right ureter measuring up to 4 mm. Additional 5 n onobstructive right renal calculi measuring up to 7 mm. PELVIS BLADDER: Decompressed with Mclean catheter in place. There is circumferential wall thickening identifi ed with surrounding fat stranding. REPRODUCTIVE: Coarse calcifications of the prostate gland are identified. ABDOMEN & PELVIS STOMACH AND BOWEL: Small hiatal hernia, duodenum is unremarkable. Sigmoid diverticulosis without evid ence for acute diverticulitis. No evidence of bowel obstruction. PERITONEUM: No evidence of pneumoperitoneum or free fluid. VASCULATURE: No evidence of aortic aneurysm. MUSCULOSKELETAL: No acute osseous abnormalities. Postsurgical changes from total left hip arthroplast y. LYMPH NODES: No gross evidence for lymphadenopathy. SOFT TISSUE/ABDOMINAL WALL: Small fat filled umbilical hernia. IMPRESSION: 1. Mild right hydroureteronephrosis with an obstructing 4 mm calculus within the right mid ureter. A dditional nonobstructing bilateral renal calculi. 2. Decompressed bladder with Mclean catheter in place. Wall thickening and surrounding inflammatory c hanges suggests cystitis. Correlate with urinalysis. 3. Cholelithiasis. 4. Sigmoid diverticulosis without evidence for acute diverticulitis. 5. Trace left pleural effusion.
[2023-10-10] MEDS: SODIUM CHLORIDE 0.9% 500 ML 500 ML IV STA ×2 (13:04→15:01)
[2023-10-10] MEDS: ONDANSETRON 4 MG/2 ML VIAL IVP STA (13:06)
[2023-10-10] MEDS: HYDROmorphone 0.5 MG/0.5 ML SYRINGE IVP STA (13:10)
[2023-10-10 13:19] LABS: Basophils % (A) 0 %; Eosinophils # (A) 0.1 k/uL (0-0.7); Eosinophils % (A) 1 %; HCT 40.4 % (39.0-53.0); Lymphocytes # (A) 0.9 k/uL (1.0-4.8); Lymphocytes % (A) 8 %; MCH 30.8 pg (25.0-35.0); MCHC 34.5 g/dL (31.0-37.0); Mean Platelet Volume 7.5; Monocytes # (A) 0.6 k/uL (0-1.0); Monocytes % (A) 5 %; Neutrophils # (A) 9.2 k/uL (1.3-7.7); Neutrophils % (A) 85 %; Platelet Count 211 k/uL (150-450); RBC 4.54 m/uL (4.30-5.90); RDW 13.4 % (11.5-15.5); WBC 10.9 k/uL (3.8-10.6)
[2023-10-10 13:43] LABS: ALT 19 U/L (4-49); African American GFR (CKD) 68 (>60 ml/min/1.73 sqM); Albumin 3.8 g/dL (3.5-5.0); Alkaline Phosphatase 81 U/L (38-126); Blood Urea Nitrogen 21 mg/dL (9-20); Calcium 9.4 mg/dL (8.4-10.2); Carbon Dioxide 24 mmol/L (22-30); Glucose 113 mg/dL (74-99); Lipase 128 U/L (23-300); Non-African American GFR(CKD) 58 (>60 ml/min/1.73 sqM); Potassium 3.9 mmol/L (3.5-5.1); Sodium 139 mmol/L (137-145); Total Bilirubin 0.6 mg/dL (0.2-1.3); Total Protein 6.7 g/dL (6.3-8.2)
[2023-10-10 15:06] VITALS: PULSE 82; RESP 16
[2023-10-10 15:28] LABS: Appearance,Urine Turbid (Clear); Bacteria,Urine Occasional /hpf; Bilirubin,Urine Negative (Negative); Blood,Urine Large (Negative); Color,Urine Light Yellow; Glucose,Urine (UA) Negative (Negative); Ketones,Urine 1+ (Negative); Leukocyte Esterase,Urine Large (Negative); Mucus,Urine Rare /hpf; Nitrite,Urine Positive (Negative); Protein,Urine 1+ (Negative); RBC,Urine 96 /hpf (0-5); Specific Gravity,Urine 1.015 (1.001-1.035); Squamous Epithelial Cell,Urine 3 /hpf (0-4); Urobilinogen,Urine <2.0 mg/dL (<2.0); WBC,Urine >182 /hpf (0-5)
[2023-10-10 15:48] LABS: AST 28 U/L (17-59); Anion Gap 7 mmol/L; Chloride 108 mmol/L (98-107)
[2023-10-10] MEDS: MORPHINE SULFATE 2 MG/ML SYRINGE IVP ONE (16:01)
[2023-10-10 16:15] VITALS: BP 166/98
== END 2023-10-10 16:16 | disposition home or self-care (01) ==
LOC: EC 11:08
DX: N13.2 Hydronephrosis with renal and ureteral calculous obstruction (principal); N39.0 Urinary tract infection, site not specified; Z91.018 Allergy to other foods; Z91.013 Allergy to seafood
CPT/HCPCS: 36415; 80053; 83690; 85025; 81001; 74176; 99284; 96374; 96375 ×2; 96361; 51702; J2405; J2270; J1170

== ENCOUNTER 2024-01-27 13:37 | Inpatient (IN) | payer MEDICARE, BC ==
[2024-01-27] MEDS ORDERED: VANCOMYCIN IV PER PHARMACY 1 EACH MISC MISCELLANE PRN (14:08)
[2024-01-27] MEDS: SODIUM CHLORIDE 0.9% 1,000 ML IV STA ×3 (14:22→15:51)
[2024-01-27 14:36] LABS: Basophils # (A) 0.1 k/uL (0-0.2); Basophils % (A) 0 %; Eosinophils # (A) 0.2 k/uL (0-0.7); Eosinophils % (A) 1 %; HCT 37.8 % (39.0-53.0); HGB 12.9 gm/dL (13.0-17.5); Lymphocytes # (A) 1.7 k/uL (1.0-4.8); Lymphocytes % (A) 11 %; MCHC 34.1 g/dL (31.0-37.0); MCV 90.9 fL (80.0-100.0); Mean Platelet Volume 7.1; Monocytes # (A) 0.7 k/uL (0-1.0); Monocytes % (A) 4 %; Neutrophils # (A) 13.3 k/uL (1.3-7.7); Neutrophils % (A) 83 %; Platelet Count 227 k/uL (150-450); RBC 4.16 m/uL (4.30-5.90); RDW 13.7 % (11.5-15.5)
[2024-01-27 14:56] LABS: ALT 19 U/L (4-49); AST 31 U/L (17-59); African American GFR (CKD) 61 (>60 ml/min/1.73 sqM); Albumin 4.1 g/dL (3.5-5.0); Alkaline Phosphatase 66 U/L (38-126); Anion Gap 9 mmol/L; Blood Urea Nitrogen 23 mg/dL (9-20); Calcium 9.1 mg/dL (8.4-10.2); Carbon Dioxide 24 mmol/L (22-30); Chloride 107 mmol/L (98-107); Glucose 116 mg/dL (74-99); Magnesium 2.2 mg/dL (1.6-2.3); Non-African American GFR(CKD) 53 (>60 ml/min/1.73 sqM); Potassium 4.6 mmol/L (3.5-5.1); Sodium 140 mmol/L (137-145); Total Protein 7.1 g/dL (6.3-8.2)
[2024-01-27 15:07] LABS: Partial Thromboplastin Time 25.4 sec (22.0-30.0); Prothrombin Time 11.1 sec (10.0-12.5)
--- NOTE | 2024-01-27 15:23 | CT ---
EXAMINATION TYPE: CT brain wo con CT DLP: 1154.4 mGycm, Automated exposure control for dose reduction was used. DATE OF EXAM: 01/27/2024 3:03 PM COMPARISON: 02/13/2018. CLINICAL INDICATION: Male, 64 years old with history of abd discomfort, weakness, Weakness. TECHNIQUE: Brain: Axial CT images of the brain were obtained with coronal and sagittal reformats created and rev iewed. Contrast used: None. Oral contrast used: None. FINDINGS: Brain: Extra-axial spaces: No abnormal extra-axial fluid collections. Ventricular system: Within normal limits Cerebral parenchyma: Scattered white matter changes in the right basal ganglia No acute intraparenchy mal hemorrhage or mass effect. The reveles-white junction is well differentiated. Scattered hypoattenua ting areas are seen within the white matter. Cerebellum: Unremarkable. Mass effect: No evidence of midline shift. Intracranial vasculature: Atherosclerotic calcifications of the intracranial vessels. Soft tissues: Normal. Calvarium/osseous structures: No depressed skull fracture. Paranasal sinuses and mastoid air cells: Mucosal thickening most pronounced in the right maxillary si nus.. Visualized orbits: Orbital contents are intact. IMPRESSION: 1. No acute intracranial process. 2. Stable scattered white matter changes. [facility], , 01/27/2024 3:20 PM
--- NOTE | 2024-01-27 15:33 | CT ---
EXAMINATION TYPE: CT abdomen pelvis wo con CT DLP: 1231.3 mGycm, Automated exposure control for dose reduction was used. DATE OF EXAM: 01/27/2024 3:03 PM COMPARISON: 10/10/2023 CLINICAL INDICATION: Male, 64 years old with history of weakness, abd discomfort; Abd discomfort, wea kness. TECHNIQUE: Axial CT abdomen pelvis wo con;Sagittal and coronal reformats were created on a separate workstation. Contrast used: mL of , (none if empty) Oral contrast used: without Oral Contrast (none if empty) FINDINGS: LOWER CHEST: Scattered calcified granulomas throughout the lungs. The heart is mildly enlarged for si ze. ABDOMEN LIVER: Unremarkable GALLBLADDER AND BILE DUCTS: Layering increased densities within the lumen consistent with gallstones are present. PANCREAS: Unremarkable. SPLEEN: Unremarkable. ADRENAL GLANDS: Unremarkable. KIDNEYS AND URETERS: Bilateral nonobstructing renal calculi measuring up to 8 mm on the right and 5 m m on the left. Bilateral renal cortical probable cyst PELVIS BLADDER: Mclean catheter in place. The foci of gas present. There is wall thickening of the urinary bl adder which is circumferential in the decompressed bladder. Multiple calcifications are present possi tristen within the wall or layering in the dependent portion of the urinary bladder. REPRODUCTIVE: Unremarkable. ABDOMEN & PELVIS STOMACH AND BOWEL: Small hiatal hernia, duodenum is unremarkable there is large amount stool througho ut the distal colon and rectum. No evidence of bowel obstruction. PERITONEUM/RETROPERITONEUM: No evidence of pneumoperitoneum or free fluid. VASCULATURE: No evidence of aortic aneurysm. MUSCULOSKELETAL: No acute osseous abnormalities. Moderate disc degeneration changes are present throu ghout the thoracolumbar spine. Left hip arthroplasty which appears intact. Streak artifact which limi ts evaluation of the pelvis. LYMPH NODES: No gross evidence for lymphadenopathy. SOFT TISSUE/ABDOMINAL WALL: Small fat-containing umbilical hernia. IMPRESSION: 1. Decompressed urinary bladder with Mclean catheter in place. Bladder wall thickening with inflammat ion changes suggestive of cystitis. Bladder stones may also be present versus calcifications within t he melton. 2. Bilateral nonobstructing renal calculi. 3. Large amount of stool throughout the distal colon and rectum. 4. Cholelithiasis. [facility], Workstation: [id number], 01/27/2024 3:31 PM
[2024-01-27] MEDS: VANCOMYCIN 1,500 MG in SODIUM CHLORIDE 0.9% 500 ML 500 ML IVPB STA (15:53)
--- NOTE | 2024-01-27 16:04 | XR ---
EXAMINATION TYPE: XR chest 2V DATE OF EXAM: 01/27/2024 3:21 PM CLINICAL INDICATION: Male, 64 years old with history of Weakness; [facility] COMPARISON: Chest radiographs from 01/19/2022 TECHNIQUE: XR chest 2V Frontal view of the chest. FINDINGS: Lungs/Pleura: There is no evidence of pleural effusion, focal consolidation, or pneumothorax. Pulmonary vascularity: Unremarkable. Heart/mediastinum: Cardiomediastinal silhouette is unremarkable. Musculoskeletal: No acute osseous pathology. IMPRESSION: No acute cardiopulmonary disease/process. [facility], , 01/27/2024 4:01 PM
[2024-01-27 16:11] LABS: Bacteria,Urine Occasional /hpf; Mucus,Urine Few /hpf; RBC,Urine 40 /hpf (0-5); Squamous Epithelial Cell,Urine 15 /hpf (0-4); WBC,Urine >182 /hpf (0-5)
[2024-01-27 16:13] LABS: Appearance,Urine Turbid (Clear); Color,Urine Colorless
[2024-01-27 16:14] LABS: Glucose,Urine (UA) Negative (Negative); PH, Urine 6.5 (5.0-8.0); Protein,Urine 1+ (Negative); Specific Gravity,Urine 1.014 (1.001-1.035)
[2024-01-27 16:15] LABS: Bilirubin,Urine Negative (Negative); Blood,Urine Moderate (Negative); Ketones,Urine Negative (Negative); Leukocyte Esterase,Urine Large (Negative); Nitrite,Urine Positive (Negative); Urobilinogen,Urine <2.0 mg/dL (<2.0)
[2024-01-27] MEDS ORDERED: NALOXONE 0.4 MG/ML 1 ML VIAL IV PRN (16:38)
[2024-01-27] MEDS ORDERED: ACETAMINOPHEN TAB 325 MG TAB PO PRN (16:38)
--- NOTE | 2024-01-27 16:40 | ED ---
General Adult HPI - General Chief complaint: Fever Stated complaint: fever Time Seen by Provider: 01/27/24 14:00 Source: patient, family, RN notes reviewed, old records reviewed Mode of arrival: wheelchair Limitations: physical limitation - History of Present Illness Initial comments: 64-year-old male who presents emergency department complaining of feeling unwell since last night. Had a low-grade fever this morning. Has a chronic Mclean ca theter as well as a history of CVA with chronic left-sided deficits and requires assist with movement. Has a power chair. Has been having conversational confusion as well. Was found to be hypotensive in triage and brought back to exam room 25. Denies any chest pain, shortness of breath, abdominal pain, nausea, vomiting. Does endorse his chronic Mclean catheter. Denies any current fevers. Denies diarrhea but does endorse occasional constipation. Presents for further evaluation at this time. States he has been having some intermittent abdominal discomfort as well.Presents with his caregiver who assist with past medical history. - Related Data Home Medications Medication Instructions Recorded Confirmed Pravastatin Sodium [Pravachol] 40 mg PO HS@209911/11/15 01/27/24 Tamsulosin [Flomax] 0.4 mg PO HS@209911/11/15 01/27/24 Venlafaxine HCl [Effexor] 37.5 mg PO BID@0900,209911/11/15 01/27/24 lisinopriL [Zestril] 20 mg PO DAILY@0900 11/11/15 01/27/24 Alendronate Sodium [Fosamax] 70 mg PO COBURN 01/20/22 01/27/24 hydrALAZINE HCL [Apresoline] 50 mg PO BID@0900,209901/20/22 01/27/24 Aloe Lax 1 tab PO BID@0900,209910/10/23 01/27/24 Aspirin 81 mg PO DAILY@89910/10/23 01/27/24 Calcium/Magnesium (Unknown) 1 tab PO DAILY@0900 10/10/23 01/27/24 Cholecalciferol [Vitamin D3 (25 25 mcg PO DAILY@0900 10/10/23 01/27/24 Mcg = 1000 Iu)] Labetalol HCl 300 mg PO BID@0900,209910/10/23 01/27/24 polyethylene glycoL 3350 [Miralax] 17 gm PO DAILY PRN 10/10/23 01/27/24 Acetaminophen [Tylenol] 325 mg PO Q4H PRN 01/27/24 01/27/24 Famotidine [Pepcid] 20 mg PO DAILY PRN 01/27/24 01/27/24 Multivit-Mins/Iron/Folic/Lycop 1 tab PO BID@0900,2100 01/27/24 01/27/24 [Centrum Men's Tablet] amLODIPine [Norvasc] 5 mg PO DAILY@0900 01/27/24 01/27/24 Allergies Allergy/AdvReac Type Severity Reaction Status Date / Time cashew nut Allergy Anaphylaxis Verified 01/27/24 14:42 shellfish derived [Shellfish] Allergy Anaphylaxis Verified 01/27/24 14:42 Review of Systems ROS Statement: Those systems with pertinent positive or pertinent negative responses have been documented in the HPI. Review of Systems: CONST: Endorses intermittent fevers EYES: Denies blurry vision ENT: Denies nasal congestion C/V: Denies Chest pain RESP: Denies shortness of breath GI: Denies abdominal pain : Denies dysuria SKIN: Denies rash. MSK: Denies joint pain. NEURO: Denies headache ROS Other: All systems not noted in ROS Statement are negative. 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 side, no recent issues with asthma, uses wheelchair requires transfer assistance. History of Any Multi-Drug Resistant Organisms: None Reported Past Surgical History: Orthopedic Surgery, Tonsillectomy Additional Past Surgical History / Comment(s): toes amputated right foot after traumatic injury, cyctoscopy, Left hip surgery. Past Anesthesia/Blood Transfusion Reactions: No Reported Reaction Past Psychological History: No Psychological Hx Reported Smoking Status: Never smoker - Past Family History Father Family Medical History: Cancer Additional Family Medical History / Comment(s): Father at age 41 from leukemia. Mother Family Medical History: CVA/TIA, Diabetes Mellitus, Hypertension Additional Family Medical History / Comment(s): Mother in her 70s from pneumonia. Sister(s) Additional Family Medical History / Comment(s): Patient has 2 sisters with no major medical problems. Patient does not have any brothers, no children. General Exam - General Exam Comments Initial Comments: General: Appears in no acute distress. HEAD: Normal with no signs of head trauma. EYES: PERRLA, EOMI, conjunctiva normal, no discharge. 3 mm and equal bilaterally. ENT: Hearing grossly intact, normal oropharynx. Dry mucous membranes. RESPIRATORY: Clear breath sounds bilaterally. No wheezes, rales, or rhonchi. C/V: Regular rate and rhythm. S1 and S2 auscultated, no edema, peripheral pulses 2+ and intact throughout ABD: Abd is soft, nontender, nondistended. Chronic Mclean in place. EXT: Chronic contractures of the left upper extremity. SKIN: No rashes or lesions observed on exposed skin. NEURO: Alert and oriented x 4. Limitations: physical limitation Course Vital Signs 01/27/24 01/27/24 01/27/24 13:45 14:03 14:30 Temperature 98.7 F Pulse Rate 59 L 61 65 Pulse Rate [ Pulse Oximetery ] Respiratory 18 19 16 Rate Blood Pressure 72/50 89/64 111/67 Blood Pressure [Left Arm] O2 Sat by Pulse 95 96 94 L Oximetry 01/27/24 01/27/24 01/27/24 14:45 15:15 17:59 Temperature 99.1 F Pulse Rate 60 63 79 Pulse Rate [ Pulse Oximetery ] Respiratory 16 18 18 Rate Blood Pressure 111/72 121/70 120/76 Blood Pressure [Left Arm] O2 Sat by Pulse 95 95 96 Oximetry 01/27/24 18:25 Temperature 98.1 F Pulse Rate Pulse Rate [ 79 Pulse Oximetery ] Respiratory 18 Rate Blood Pressure Blood Pressure 133/77 [Left Arm] O2 Sat by Pulse 98 Oximetry Medical Decision Making - Medical Decision Making Was pt. sent in by a medical professional or institution (, PA, ELECT[employer] BE[employer] PHOTO MASK TECHNICIAN, urgent care, hospital, or penitentiary...) When possible be specific @ -No Did you speak to anyone other than the patient for history (EMS, parent, family, police, friend...)? What history was obtained from this source @ -Patient's caregiver is the primary historian for the patient in addition to the patient. Did you review nursing and triage notes (agree or disagree)? Why? @ -I reviewed and agree with nursing and triage notes Were old charts reviewed (outside hosp., previous admission, EMS record, old EKG, old radiological studies, urgent care reports/EKG's, penitentiary records)? Report findings @ -Revealed old medication list. Differential Diagnosis (chest pain, altered mental status, abdominal pain women, abdominal pain men, vaginal bleeding, weakness, fever, dyspnea, syncope, headache, dizziness, GI bleed, back pain, seizure, CVA, palpatations, mental health, musculoskeletal)? @ -Differential Weakness: Hypoglycemia, shock, sepsis, hyponatremia, anemia, infection, AK, ETOH, adverse medicine reaction, overdose, stroke, this is not meant to be an all-inclusive list. EKG interpreted by me (3pts min.). @ -As above X-rays interpreted by me (1pt min.). @ -Chest x-ray shows no obvious acute cardiopulmonary process. CT interpreted by me (1pt min.). @ -CT brain reveals no obvious acute intracranial process. CT abdomen pelvis reveals findings consistent with cystitis but no other obvious acute process. Patient does have nonobstructing renal calculi as well as some constipation. U/S interpreted by me (1pt. min.). @ -None done What testing was considered but not performed or refused? (CT, X-rays, U/S, labs)? Why? @ -None What meds were considered but not given or refused? Why? @ -None Did you discuss the management of the patient with other professionals (professionals i.e. , PA, ELECT[employer] BE[employer] PH[employer] MASK TECHNICIAN, lab, RT, psych nurse, social sciences instructor, swimming pool installer, teacher, county records management officer, senior case manager)? Give summary @ -Discussed with the admitting provider, Dr. Flores who accepted the admission. Was smoking cessation discussed for >3mins.? @ -No Was critical care preformed (if so, how long)? @ -Yes, 41 minutes. Were there social determinants of health that impacted care today? How? (Homelessness, low income, unemployed, alcoholism, drug addiction, transportation, low edu. Level, literacy, decrease access to med. care, snf, rehab)? @ -No Was there de-escalation of care discussed even if they declined (Discuss DNR or withdrawal of care, Hospice)? DNR status @ -No What co-morbidities impacted this encounter? (DM, HTN, Smoking, COPD, CAD, Cancer, CVA, ARF, Chemo, Hep., AIDS, mental health diagnosis, sleep apnea, morbid obesity)? @ -None Was patient admitted / discharged? Hospital course, mention meds given and route, prescriptions, significant lab abnormalities, going to OR and other pertinent info. @ -Patient presents hypotensive with fevers at home and some conversational confusion. We will obtain CT brain, CT abdomen pelvis, chest x-ray as well as infectious workup. Patient has hypotension there is concern for sepsis no for sepsis criteria met at 1405. Patient given 2 L fluid bolus. And started on 130 cc an hour of normal saline. Patient started on broad-spectrum antibiotics vancomycin and cefepime. Patient's labs obtained. This includes blood cultures, lactic acid. Patient was in agreement this plan. Mclean catheter replaced and clean sample sent of urine. Imaging is unremarkable. CT of the belly does reveal cystitis findings. EKG shows no signs of acute ischemia. Laboratory studies are remarkable for CKD, leukocytosis of 16, as well as a urinalysis consistent with UTI. Patient's blood pressure improved on reevaluation. Patient will be admitted for sepsis from UTI. Will continue with broad-spectrum antibiotics and cultures will be followed up on. Patient and caregiver in agreement this plan. I spoke with the admitting provider, Dr. Flores who accepted the admission. Undiagnosed new problem with uncertain prognosis? @ -No Drug Therapy requiring intensive monitoring for toxicity (Heparin, Nitro, Insulin, Cardizem)? @ -No Were any procedures done? @ -No Diagnosis/symptom? @ -Sepsis, UTI Acute, or Chronic, or Acute on Chronic? @ -Acute Uncomplicated (without systemic symptoms) or Complicated (systemic symptoms)? @ -Complicated Side effects of treatment? @ -No Exacerbation, Progression, or Severe Exacerbation? @ -No Poses a threat to life or bodily function? How? (Chest pain, USA, AK, pneumonia, PE, COPD, DKA, ARF, appy, cholecystitis, CVA, Diverticulitis, Homicidal, Suicidal, threat to staff... and all critical care pts) @ -Yes - Lab Data Result diagrams: 01/27/24 14:20 01/27/24 14:20 Lab Results 01/27/24 01/27/24 01/27/24 Range/Units 14:20 14:20 14:20 WBC 16.0 H (3.8-10.6) k/uL RBC 4.16 L (4.30-5.90) m/uL Hgb 12.9 L (13.0-17.5) gm/dL Hct 37.8 L (39.0-53.0) % MCV 90.9 (80.0-100.0) fL MCH 31.0 (25.0-35.0) pg MCHC 34.1 (31.0-37.0) g/dL RDW 13.7 (11.5-15.5) % Plt Count 227 (150-450) k/uL MPV 7.1 Neutrophils % 83 % Lymphocytes % 11 % Monocytes % 4 % Eosinophils % 1 % Basophils % 0 % Neutrophils # 13.3 H (1.3-7.7) k/uL Lymphocytes # 1.7 (1.0-4.8) k/uL Monocytes # 0.7 (0-1.0) k/uL Eosinophils # 0.2 (0-0.7) k/uL Basophils # 0.1 (0-0.2) k/uL PT 11.1 (10.0-12.5) sec INR 1.0 (<1.2) APTT 25.4 (22.0-30.0) sec Sodium 140 (137-145) mmol/L Potassium 4.6 (3.5-5.1) mmol/L Chloride 107 (98-107) mmol/L Carbon Dioxide 24 (22-30) mmol/L Anion Gap 9 mmol/L BUN 23 H (9-20) mg/dL Creatinine 1.39 H (0.66-1.25) mg/dL Est GFR (CKD-EPI)AfAm 61 (>60 ml/min/1.73 sqM) Est GFR (CKD-EPI)NonAf 53 (>60 ml/min/1.73 sqM) Glucose 116 H (74-99) mg/dL Plasma Lactic Acid Darío (0.7-2.0) mmol/L Calcium 9.1 (8.4-10.2) mg/dL Magnesium 2.2 (1.6-2.3) mg/dL Total Bilirubin 1.0 (0.2-1.3) mg/dL AST 31 (17-59) U/L ALT 19 (4-49) U/L Alkaline Phosphatase 66 (38-126) U/L Troponin I (0.000-0.034) ng/mL Total Protein 7.1 (6.3-8.2) g/dL Albumin 4.1 (3.5-5.0) g/dL Urine Color Urine Appearance (Clear) Urine pH (5.0-8.0) Ur Specific [place] (1.001-1.035) Urine Protein (Negative) Urine Glucose (UA) (Negative) Urine Ketones (Negative) Urine Blood (Negative) Urine Nitrite (Negative) Urine Bilirubin (Negative) Urine Urobilinogen (<2.0) mg/dL Ur Leukocyte Esterase (Negative) Urine RBC (0-5) /hpf Urine WBC (0-5) /hpf Urine WBC Clumps (None) /hpf Ur Squamous Epith Cells (0-4) /hpf Urine Bacteria (None) /hpf Urine Mucus (None) /hpf Influenza Type A (PCR) (Not Detectd) Influenza Type B (PCR) (Not Detectd) RSV (PCR) (Not Detectd) SARS-CoV-2 (PCR) (Not Detectd) 01/27/24 01/27/24 01/27/24 Range/Units 14:20 14:20 14:20 WBC (3.8-10.6) k/uL RBC (4.30-5.90) m/uL Hgb (13.0-17.5) gm/dL Hct (39.0-53.0) % MCV (80.0-100.0) fL MCH (25.0-35.0) pg MCHC (31.0-37.0) g/dL RDW (11.5-15.5) % Plt Count (150-450) k/uL MPV Neutrophils % % Lymphocytes % % Monocytes % % Eosinophils % % Basophils % % Neutrophils # (1.3-7.7) k/uL Lymphocytes # (1.0-4.8) k/uL Monocytes # (0-1.0) k/uL Eosinophils # (0-0.7) k/uL Basophils # (0-0.2) k/uL PT (10.0-12.5) sec INR (<1.2) APTT (22.0-30.0) sec Sodium (137-145) mmol/L Potassium (3.5-5.1) mmol/L Chloride (98-107) mmol/L Carbon Dioxide (22-30) mmol/L Anion Gap mmol/L BUN (9-20) mg/dL Creatinine (0.66-1.25) mg/dL Est GFR (CKD-EPI)AfAm (>60 ml/min/1.73 sqM) Est GFR (CKD-EPI)NonAf (>60 ml/min/1.73 sqM) Glucose (74-99) mg/dL Plasma Lactic Acid Darío 1.4 (0.7-2.0) mmol/L Calcium (8.4-10.2) mg/dL Magnesium (1.6-2.3) mg/dL Total Bilirubin (0.2-1.3) mg/dL AST (17-59) U/L ALT (4-49) U/L Alkaline Phosphatase (38-126) U/L Troponin I 0.015 (0.000-0.034) ng/mL Total Protein (6.3-8.2) g/dL Albumin (3.5-5.0) g/dL Urine Color Urine Appearance (Clear) Urine pH (5.0-8.0) Ur Specific [place] (1.001-1.035) Urine Protein (Negative) Urine Glucose (UA) (Negative) Urine Ketones (Negative) Urine Blood (Negative) Urine Nitrite (Negative) Urine Bilirubin (Negative) Urine Urobilinogen (<2.0) mg/dL Ur Leukocyte Esterase (Negative) Urine RBC (0-5) /hpf Urine WBC (0-5) /hpf Urine WBC Clumps (None) /hpf Ur Squamous Epith Cells (0-4) /hpf Urine Bacteria (None) /hpf Urine Mucus (None) /hpf Influenza Type A (PCR) Not Detected (Not Detectd) Influenza Type B (PCR) Not Detected (Not Detectd) RSV (PCR) Not Detected (Not Detectd) SARS-CoV-2 (PCR) Not Detected (Not Detectd) 01/27/24 Range/Units 14:24 WBC (3.8-10.6) k/uL RBC (4.30-5.90) m/uL Hgb (13.0-17.5) gm/dL Hct (39.0-53.0) % MCV (80.0-100.0) fL MCH (25.0-35.0) pg MCHC (31.0-37.0) g/dL RDW (11.5-15.5) % Plt Count (150-450) k/uL MPV Neutrophils % % Lymphocytes % % Monocytes % % Eosinophils % % Basophils % % Neutrophils # (1.3-7.7) k/uL Lymphocytes # (1.0-4.8) k/uL Monocytes # (0-1.0) k/uL Eosinophils # (0-0.7) k/uL Basophils # (0-0.2) k/uL PT (10.0-12.5) sec INR (<1.2) APTT (22.0-30.0) sec Sodium (137-145) mmol/L Potassium (3.5-5.1) mmol/L Chloride (98-107) mmol/L Carbon Dioxide (22-30) mmol/L Anion Gap mmol/L BUN (9-20) mg/dL Creatinine (0.66-1.25) mg/dL Est GFR (CKD-EPI)AfAm (>60 ml/min/1.73 sqM) Est GFR (CKD-EPI)NonAf (>60 ml/min/1.73 sqM) Glucose (74-99) mg/dL Plasma Lactic Acid Darío (0.7-2.0) mmol/L Calcium (8.4-10.2) mg/dL Magnesium (1.6-2.3) mg/dL Total Bilirubin (0.2-1.3) mg/dL AST (17-59) U/L ALT (4-49) U/L Alkaline Phosphatase (38-126) U/L Troponin I (0.000-0.034) ng/mL Total Protein (6.3-8.2) g/dL Albumin (3.5-5.0) g/dL Urine Color Colorless Urine Appearance Turbid (Clear) Urine pH 6.5 (5.0-8.0) Ur Specific [place] 1.014 (1.001-1.035) Urine Protein 1+ H (Negative) Urine Glucose (UA) Negative (Negative) Urine Ketones Negative (Negative) Urine Blood Moderate (Negative) Urine Nitrite Positive (Negative) Urine Bilirubin Negative (Negative) Urine Urobilinogen <2.0 (<2.0) mg/dL Ur Leukocyte Esterase Large (Negative) Urine RBC 40 H (0-5) /hpf Urine WBC >182 H (0-5) /hpf Urine WBC Clumps Many H (None) /hpf Ur Squamous Epith Cells 15 H (0-4) /hpf Urine Bacteria Occasional H (None) /hpf Urine Mucus Few H (None) /hpf Influenza Type A (PCR) (Not Detectd) Influenza Type B (PCR) (Not Detectd) RSV (PCR) (Not Detectd) SARS-CoV-2 (PCR) (Not Detectd) - EKG Data -: EKG Interpreted by Me EKG Comments: 12-lead Electrocardiogram Interpretation Note EKG was reviewed and interpreted by myself. 12-lead ECG performed at 1425 is interpreted by me as revealing normal sinus rhythm at a rate of 62 beats per minute. [place] is normal. MN interval is 206 ms, QRS duration is 91 ms, QTc is 483 ms.. There were no ST or T wave abnormalities to suggest myocardial ischemia or injury. R wave progression across the precordium was satisfactory. By my interpretation this EKG is non-diagnostic for acute ischemia. Critical Care Time Critical Care Time: Yes Total Critical Care Time: 41 Disposition Clinical Impression: UTI (urinary tract infection), Sepsis Disposition: ADMITTED IP TO THIS HOSP Condition: Serious Time of Disposition: 16:25
--- NOTE | 2024-01-27 17:02 | P.HPIM ---
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 He presented to the emergency department with a chief complaint of overall feeling "unwell". Patient reports over the past couple of days he has not been feeling well at all, admitting to feeling generally weak and fatigued, excessively tired, chills, diaphoresis and just not like himself. Caregiver at bedside reports she first noticed the symptoms last night and reports he has had 2 episodes of kidney stones along with 4 urinary tract infections over the past year with similar complaints, but states his Mclean catheter was just changed at Dr. Carson 's office on and everything was okay so she waited it out. However, when she noticed a fever this morning 101 F she states she gave him some Tylenol and knew he had to come to the hospital for evaluation. Patient currently denies having any headache, lightheadedness, dizziness, chest pain, palpitations, shortness of breath, cough or congestion, abdominal pain, back or flank pain, nausea, or vomiting. Upon arrival to our facility, patient underwent evaluation in the emergency department. Vital signs upon arrival show blood pressure 72/50, heart rate 59, respiratory rate 18, temp 98.7 F, and SpO2 of 95% on room air. EKG was completed showing sinus rhythm at 62 bpm with nonspecific T wave changes in inferior lateral leads and a prolonged QT/QTc of 478/483 ms upon personal review and interpretation. Chest x-ray completed negative for acute cardiopulmonary process. Labs completed and reviewed. CBC showing leukocytosis with WBC count of 16.0 and normocytic anemia with hem oglobin of 12.9. Coagulation profile normal findings. BMP sent with known CKD with BUN of 23, creatinine of 1.39, and GFR of 53 with baseline creatinine around 1.3. Blood glucose was 116. Lactic acid was 1.4. Magnesium normal findings at 2.2. Liver profile unremarkable. Troponin was 0.015. Urinalysis turbid appearance positive for protein, blood, nitrites, leukocyte esterase 40 RBCs, and greater than 182 WBCs. Is a, influenza B, RSV, and COVID PCR were negative. CT abdomen and pelvis without contrast completed showing decompressed urinary bladder with Mclean catheter in place along with bladder wall thickening and inflammatory changes suggestive of cystitis, bladder stones may also be present versus calcifications within the melton, bilateral nonobstructing renal calculi, cholelithiasis, and a large amount of stool burden throughout the distal colon and rectum. Urine culture and blood cultures were obtained. Patient started on broad-spectrum antibiotics with vancomycin and Zosyn and admitted under our services with consultation to urology and infectious disease. Review of systems: Pertinent positives and negatives as discussed in HPI, a complete review of systems was performed and all other systems are negative. Physical exam: Vital signs reviewed and stable. General: Nontoxic, no distress and appears stated age. Derm: Skin warm and dry, normal coloration for ethnicity. Head: Atraumatic, normocephalic and symmetric. Eyes: EOM's intact, no lid lag, and anicteric sclera Mouth: no lip lesions, mucus membranes moist Cardiovascular: regular rate and rhythm with normal S1S2, no murmur, positive posterior tibial pulses bilaterally, and cap refill < 2 seconds. Lungs: Respirations even, regular, and unlabored on room air. Lungs CTA bilaterally, no rhonchi, no rales, no wheezing, and no accessory muscle usage. Abdominal: soft, nontender to palpation, no guarding, no appreciable organomegaly Ext: No gross muscle atrophy, no edema, no contractures. Left-sided weakness se condary to previous CVA, wheelchair dependent. Neuro: Speech clear, face symmetrical and CN II-XII grossly intact with no noted focal neuro deficits Psych: Alert and oriented to person place but slightly confused to time and situation.. Appropriate and pleasant affect. Assessment and Plan of Care: Acute Cystitis associated with chronic indwelling Mclean catheter Sepsis upon arrival secondary to above Metabolic encephalopathy, secondary to above Bilateral nonobstructing renal calculi Bladder stones versus calcifications CKD stage III -Patient received 2 L sepsis bolus resulting in improvement of hypotension. Patient to continue to receive continuous IV fluid hydration with 0.9% normal saline at 130 cc/h. -Continue broad-spectrum antibiotics with vancomycin 1500 mg every 12 hours and Zosyn 3.375 g every 8 hours with close monitoring of renal function and vancomycin trough to watch cautiously for any signs of vancomycin associated renal toxicity.. -Follow-up on urine culture and blood culture. -Urology consulted, appreciate recommendations -Infectious disease consulted appreciate recommendations -Patient to remain on continuous telemetry monitoring with close monitoring of vital signs every 4 hours. -Continue Flomax 0.4 mg nightly -Mclean catheter was changed out in the emergency department on arrival, continue Mclean care. Constipation -CT showing a large amount of stool burden throughout the distal colon and rectum -Order placed for lactulose 30 g p.o. x 1 dose and patient started on MiraLAX 17 g daily. History of CVA with left-sided residual deficits Bilateral lower extremity peripheral neuropathy -Patient is wheelchair-bound. -Activity order placed for turn every 2 hours and as needed. -Fall precautions to be maintained -Patient to be provided with safe and supportive care and assistance as needed. -Continue aspirin 81 mg daily and pravastatin 40 mg nightly. Hypertension -Now that blood pressures have stabilized, patient to continue amlodipine 5 mg daily, lisinopril 20 mg daily, hydralazine 50 mg twice daily with parameters to hold for systolic pressure less than 110, and labetalol 300 mg twice daily with parameters placed to hold for systolic pressure less than 110 and/or heart rate less than 60. -Continue close monitoring of vital signs every 4 hours. Hyperlipidemia -Continue pravastatin 40 mg nightly. Data and imaging reviewed: As stated above in HPI. The patient is admitted with an anticipated greater than 2 midnight stay for evaluation of Urosepsis CODE STATUS: Full code DVT prophylaxis: Lovenox Anticipated discharge date: Pending clinical course Anticipated discharge place: Pending clinical course Patient was seen independently by Nurse Practitioner. This document was prepared using [employer] dictation software. Please allow for errors in territory development manager while rare they do occur. I reviewed the documentation as provided by the JAEL above, who is the original author of this note. I agree with the documented assessment and plan, with the following changes: none Past Medical History Past Medical History: Asthma, CVA/TIA, Hyperlipidemia, Hypertension Additional Past Medical History / Comment(s): peripheral neroupathy marko LE, retinoneuropathy, urine retention, residual to the lt. side, no recent issues with asthma, uses wheelchair requires transfer assistance. History of Any Multi-Drug Resistant Organisms: None Reported Past Surgical History: Orthopedic Surgery, Tonsillectomy Additional Past Surgical History / Comment(s): toes amputated right foot after traumatic injury, cyctoscopy, Left hip surgery. Past Anesthesia/Blood Transfusion Reactions: No Reported Reaction Past Psychological History: No Psychological Hx Reported Smoking Status: Never smoker - Past Family History Father Family Medical History: Cancer Additional Family Medical History / Comment(s): Father at age 41 from leukemia. Mother Family Medical History: CVA/TIA, Diabetes Mellitus, Hypertension Additional Family Medical History / Comment(s): Mother in her 70s from pneumonia. Sister(s) Additional Family Medical History / Comment(s): Patient has 2 sisters with no major medical problems. Patient does not have any brothers, no children. Medications and Allergies Home Medications Medication Instructions Recorded Confirmed Type Pravastatin Sodium [Pravachol] 40 mg PO HS@209911/11/15 01/27/24 History Tamsulosin [Flomax] 0.4 mg PO HS@209911/11/15 01/27/24 History Venlafaxine HCl [Effexor] 37.5 mg PO BID@0900,209911/11/15 01/27/24 History lisinopriL [Zestril] 20 mg PO DAILY@89911/11/15 01/27/24 History Alendronate Sodium [Fosamax] 70 mg PO COBURN 01/20/22 01/27/24 History hydrALAZINE HCL [Apresoline] 50 mg PO BID@0900,209901/20/22 01/27/24 History Aloe Lax 1 tab PO BID@0900,209910/10/23 01/27/24 History Aspirin 81 mg PO DAILY@89910/10/23 01/27/24 History Calcium/Magnesium (Unknown) 1 tab PO DAILY@00 10/10/23 01/27/24 History Cholecalciferol [Vitamin D3 (25 25 mcg PO DAILY@89910/10/23 01/27/24 History Mcg = 1000 Iu)] Labetalol HCl 300 mg PO BID@0900,209910/10/23 01/27/24 History polyethylene glycoL 3350 [Miralax] 17 gm PO DAILY PRN 10/10/23 01/27/24 History Acetaminophen [Tylenol] 325 mg PO Q4H PRN 01/27/24 01/27/24 History Famotidine [Pepcid] 20 mg PO DAILY PRN 01/27/24 01/27/24 History Multivit-Mins/Iron/Folic/Lycop 1 tab PO BID@0900,2100 01/27/24 01/27/24 History [Centrum Men's Tablet] amLODIPine [Norvasc] 5 mg PO DAILY@0900 01/27/24 01/27/24 History Allergies Allergy/AdvReac Type Severity Reaction Status Date / Time cashew nut Allergy Anaphylaxis Verified 01/27/24 14:42 shellfish derived [Shellfish] Allergy Anaphylaxis Verified 01/27/24 14:42 Physical Exam Osteopathic Statement: *. No significant issues noted on an osteopathic structural exam other than those noted in the History and Physical/Consult. Vitals: Vital Signs Temp Pulse Resp BP Pulse Ox 01/27/24 15:15 63 18 121/70 95 01/27/24 14:45 60 16 111/72 95 01/27/24 14:30 65 16 111/67 94 L 01/27/24 14:03 61 19 89/64 96 01/27/24 13:45 98.7 F 59 L 18 72/50 95 Intake and Output 01/27/24 01/27/24 01/27/24 06:59 14:59 22:59 Other: Weight 87.997 kg Results CBC & Chem 7: 01/27/24 14:20 01/27/24 14:20 Labs: Abnormal Lab Results - Last 24 Hours (Table) 01/27/24 01/27/24 01/27/24 Range/Units 14:20 14:20 14:24 WBC 16.0 H (3.8-10.6) k/uL RBC 4.16 L (4.30-5.90) m/uL Hgb 12.9 L (13.0-17.5) gm/dL Hct 37.8 L (39.0-53.0) % Neutrophils # 13.3 H (1.3-7.7) k/uL BUN 23 H (9-20) mg/dL Creatinine 1.39 H (0.66-1.25) mg/dL Glucose 116 H (74-99) mg/dL Urine Protein 1+ H (Negative) Urine RBC 40 H (0-5) /hpf Urine WBC >182 H (0-5) /hpf Urine WBC Clumps Many H (None) /hpf Ur Squamous Epith Cells 15 H (0-4) /hpf Urine Bacteria Occasional H (None) /hpf Urine Mucus Few H (None) /hpf
[2024-01-27] MEDS ORDERED: polyethylene glycoL 3350 17 GM POWD.PACK PO PRN (17:06)
[2024-01-27] MEDS ORDERED: FAMOTIDINE 20 MG TAB PO PRN (17:06)
[2024-01-27] MEDS: PIPERACILLIN-TAZOBACTAM 3.375 GM in SODIUM CHLORIDE 0.9% 100 ML IVPB SCH (18:37)
[2024-01-27] MEDS: LACTULOSE 20 GM/30 ML CUP PO ONE (18:38)
[2024-01-27] MEDS: TAMSULOSIN 0.4 MG CAP.ER.24H PO SCH (20:03)
[2024-01-27] MEDS: VENLAFAXINE HCL 37.5 MG TAB PO SCH (20:03)
[2024-01-27] MEDS: hydrALAZINE HCL 50 MG TAB PO SCH (20:03)
[2024-01-27] MEDS: LABETALOL 100 MG TAB PO SCH (20:03)
[2024-01-27] MEDS: PRAVASTATIN SODIUM 40 MG TAB PO SCH (20:03)
[2024-01-28] MEDS: PIPERACILLIN-TAZOBACTAM 3.375 GM in SODIUM CHLORIDE 0.9% 100 ML IVPB SCH (01:29)
[2024-01-28] MEDS: VANCOMYCIN 1,500 MG in SODIUM CHLORIDE 0.9% 500 ML 500 ML IVPB SCH (05:18)
[2024-01-28] MEDS: ENOXAPARIN 40 MG/0.4 ML SYRINGE SQ SCH (07:36)
[2024-01-28] MEDS: MULTIVITAMINS, THERA 1 EACH TAB PO SCH (07:37)
[2024-01-28] MEDS: lisinopriL 20 MG TAB PO SCH (07:37)
[2024-01-28] MEDS: CHOLECALCIFEROL 25 MCG (1000 IU) TABLET PO SCH (07:37)
[2024-01-28] MEDS: amLODIPine 5 MG TAB PO SCH (07:37)
[2024-01-28] MEDS: ASPIRIN 81 MG PO SCH (07:37)
[2024-01-28] MEDS: polyethylene glycoL 3350 17 GM POWD.PACK PO SCH (09:37)
[2024-01-28 09:45] LABS: Basophils # (A) 0.06 X 10*3/uL (0.00-0.10); Basophils % (A) 0.5 %; Eosinophils # (A) 0.05 X 10*3/uL (0.04-0.35); Eosinophils % (A) 0.4 %; HCT 35.3 % (39.6-50.0); HGB 11.5 g/dL (13.0-17.0); Lymphocytes # (A) 1.72 X 10*3/uL (0.90-5.00); Lymphocytes % (A) 14.7 %; MCH 30.9 pg (27.0-32.0); MCHC 32.6 g/dL (32.0-37.0); MCV 94.9 FL (80.0-97.0); Mean Platelet Volume 9.7 FL (9.5-12.2); Monocytes # (A) 0.94 X 10*3/uL (0.20-1.00); NRBC Per 100 WBC 0 X 10*3/uL (0.00-0.01); Neutrophils # (A) 8.88 X 10*3/uL (1.80-7.70); Neutrophils % (A) 76.1 %; Platelet Count 175 X 10*3/uL (140-440); RBC 3.72 X 10*6/uL (4.40-5.60); RDW 13.4 % (11.5-14.5); WBC 11.69 X 10*3/uL (4.50-10.00)
[2024-01-28 10:07] LABS: ALT 16 U/L (10-49); AST 22 U/L (14-35); Albumin 3.7 g/dL (3.8-4.9); Albumin/Globulin Ratio 1.48 Ratio (1.60-3.17); Alkaline Phosphatase 70 U/L (41-126); BUN/Creat Ratio 14.25 Ratio (12.00-20.00); Blood Urea Nitrogen 17.1 mg/dL (9.0-27.0); Calcium 8.6 mg/dL (8.7-10.3); Chloride 112 mmol/L (96-109); Globulin 2.5 g/dL (1.6-3.3); Glucose 84 mg/dL (70-110); Potassium 3.8 mmol/L (3.5-5.5); Sodium 144 mmol/L (135-145); Total Bilirubin 0.5 mg/dL (0.3-1.2); Total Protein 6.2 g/dL (6.2-8.2)
--- NOTE | 2024-01-28 10:13 | P.GSCN ---
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 the patient wears a chronic indwelling catheter. He had bladder stones when I initially dealt with the patient He was admitted yesterday with a uti with sepsis. He had a ct scan that showed bilateral small, non obstructing renal stones and maybe some small bladder stones.he is asymptomatic at present.his vital signs are stable and he is afebrile. Review of Systems All systems: negative - Constitutional Denies fever, Denies weight loss - EENT Eyes: denies blurred vision Ears, nose, mouth and throat: Denies dysphagia - Cardiovascular Denies chest pain, Denies shortness of breath - Respiratory Denies cough, Denies 7 - Gastrointestinal Reports as per HPI - Genitourinary Denies dysuria, Denies hematuria - Integumentary Denies rash, Denies unusual bruising - Neurological Denies headaches, Denies syncope - Hematologic/Lymphatic Denies easy bleeding, Denies easy bruising Past Medical History Past Medical History: Asthma, CVA/TIA, Hyperlipidemia, Hypertension Additional Past Medical History / Comment(s): peripheral neroupathy marko LE, retinoneuropathy, urine retention, residual to the lt. side, no recent issues with asthma, uses wheelchair requires transfer assistance. History of Any Multi-Drug Resistant Organisms: None Reported Past Surgical History: Orthopedic Surgery, Tonsillectomy Additional Past Surgical History / Comment(s): toes amputated right foot after traumatic injury, cyctoscopy, Left hip surgery. Past Anesthesia/Blood Transfusion Reactions: No Reported Reaction Past Psychological History: No Psychological Hx Reported Smoking Status: Never smoker - Past Family History Father Family Medical History: Cancer Additional Family Medical History / Comment(s): Father at age 41 from leukemia. Mother Family Medical History: CVA/TIA, Diabetes Mellitus, Hypertension Additional Family Medical History / Comment(s): Mother in her 70s from pneumonia. Sister(s) Additional Family Medical History / Comment(s): Patient has 2 sisters with no major medical problems. Patient does not have any brothers, no children. Medications and Allergies Home Medications Medication Instructions Recorded Confirmed Type Pravastatin Sodium [Pravachol] 40 mg PO HS@2100 11/11/15 01/27/24 History Tamsulosin [Flomax] 0.4 mg PO HS@209911/11/15 01/27/24 History Venlafaxine HCl [Effexor] 37.5 mg PO BID@0900,209911/11/15 01/27/24 History lisinopriL [Zestril] 20 mg PO DAILY@0900 11/11/15 01/27/24 History Alendronate Sodium [Fosamax] 70 mg PO COBURN 01/20/22 01/27/24 History hydrALAZINE HCL [Apresoline] 50 mg PO BID@0900,209901/20/22 01/27/24 History Aloe Lax 1 tab PO BID@0900,209910/10/23 01/27/24 History Aspirin 81 mg PO DAILY@0900 10/10/23 01/27/24 History Calcium/Magnesium (Unknown) 1 tab PO DAILY@0900 10/10/23 01/27/24 History Cholecalciferol [Vitamin D3 (25 25 mcg PO DAILY@0900 10/10/23 01/27/24 History Mcg = 1000 Iu)] Labetalol HCl 300 mg PO BID@0900,209910/10/23 01/27/24 History polyethylene glycoL 3350 [Miralax] 17 gm PO DAILY PRN 10/10/23 01/27/24 History Acetaminophen [Tylenol] 325 mg PO Q4H PRN 01/27/24 01/27/24 History Famotidine [Pepcid] 20 mg PO DAILY PRN 01/27/24 01/27/24 History Multivit-Mins/Iron/Folic/Lycop 1 tab PO BID@0900,209901/27/24 01/27/24 History [Centrum Men's Tablet] amLODIPine [Norvasc] 5 mg PO DAILY@0900 01/27/24 01/27/24 History Allergies Allergy/AdvReac Type Severity Reaction Status Date / Time cashew nut Allergy Anaphylaxis Verified 01/27/24 14:42 shellfish derived [Shellfish] Allergy Anaphylaxis Verified 01/27/24 14:42 Surgical - Exam Vital Signs Temp Pulse Resp BP Pulse Ox 98.7 F 59 L 18 72/50 95 01/27/24 13:45 01/27/24 13:45 01/27/24 13:45 01/27/24 13:45 01/27/24 13:45 - General well developed, well nourished, no distress - Eyes normal ocular movement, no icteric - ENT no hearing loss, no congestion - Neck no masses, trachea midline - Respiratory normal respiratory effort, clear to auscultation - Abdomen Abdomen: soft, non tender, no guarding, no rigid, no rebound - Genitourinary indwelling catheter, clear urine. The catheter is changed yesterday - Integumentary no rash, no abnormal pigmentation - Neurologic left-sided paralysis no disoriented, no combative - Psychiatric oriented to time, oriented to person, oriented to place, speech is normal, memory intact Results - Labs 01/28/24 02:25 01/28/24 02:25 Abnormal Lab Results - Last 24 Hours (Table) 01/27/24 01/27/24 01/27/24 Range/Units 14:20 14:20 14:24 WBC 16.0 H (3.8-10.6) k/uL RBC 4.16 L (4.30-5.90) m/uL Hgb 12.9 L (13.0-17.5) gm/dL Hct 37.8 L (39.0-53.0) % Neutrophils # 13.3 H (1.3-7.7) k/uL BUN 23 H (9-20) mg/dL Creatinine 1.39 H (0.66-1.25) mg/dL Glucose 116 H (74-99) mg/dL Urine Protein 1+ H (Negative) Urine RBC 40 H (0-5) /hpf Urine WBC >182 H (0-5) /hpf Urine WBC Clumps Many H (None) /hpf Ur Squamous Epith Cells 15 H (0-4) /hpf Urine Bacteria Occasional H (None) /hpf Urine Mucus Few H (None) /hpf Diabetes panel 01/27/24 Range/Units 14:20 Sodium 140 (137-145) mmol/L Potassium 4.6 (3.5-5.1) mmol/L Chloride 107 (98-107) mmol/L Carbon Dioxide 24 (22-30) mmol/L BUN 23 H (9-20) mg/dL Creatinine 1.39 H (0.66-1.25) mg/dL Glucose 116 H (74-99) mg/dL Calcium 9.1 (8.4-10.2) mg/dL AST 31 (17-59) U/L ALT 19 (4-49) U/L Alkaline Phosphatase 66 (38-126) U/L Total Protein 7.1 (6.3-8.2) g/dL Albumin 4.1 (3.5-5.0) g/dL Calcium panel 01/27/24 Range/Units 14:20 Calcium 9.1 (8.4-10.2) mg/dL Albumin 4.1 (3.5-5.0) g/dL Pituitary panel 01/27/24 Range/Units 14:20 Sodium 140 (137-145) mmol/L Potassium 4.6 (3.5-5.1) mmol/L Chloride 107 (98-107) mmol/L Carbon Dioxide 24 (22-30) mmol/L BUN 23 H (9-20) mg/dL Creatinine 1.39 H (0.66-1.25) mg/dL Glucose 116 H (74-99) mg/dL Calcium 9.1 (8.4-10.2) mg/dL Adrenal panel 01/27/24 Range/Units 14:20 Sodium 140 (137-145) mmol/L Potassium 4.6 (3.5-5.1) mmol/L Chloride 107 (98-107) mmol/L Carbon Dioxide 24 (22-30) mmol/L BUN 23 H (9-20) mg/dL Creatinine 1.39 H (0.66-1.25) mg/dL Glucose 116 H (74-99) mg/dL Calcium 9.1 (8.4-10.2) mg/dL Total Bilirubin 1.0 (0.2-1.3) mg/dL AST 31 (17-59) U/L ALT 19 (4-49) U/L Alkaline Phosphatase 66 (38-126) U/L Total Protein 7.1 (6.3-8.2) g/dL Albumin 4.1 (3.5-5.0) g/dL Assessment and Plan Assessment: Impression: UTI with sepsis. ngb, chronic indwelling catheter, renal stones, non obstructing. possible bladder stones,immobility due to stroke Recommendations: At this point in time nothing urologic needs to be done. I would continue with antibiotics. Later date I will probably need to do a cystoscopy with cystolithotripsy. This can be achieved as an outpatient.
--- NOTE | 2024-01-28 14:30 | P.PN ---
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 He presented to the emergency department with a chief complaint of overall feeling "unwell". Patient reports over the past couple of days he has not been feeling well at all, admitting to feeling generally weak and fatigued, excessively tired, chills, diaphoresis and just not like himself. Caregiver at bedside reports she first noticed the symptoms last night and reports he has had 2 episodes of kidney stones along with 4 urinary tract infections over the past year with similar complaints, but states his Mclean catheter was just changed at Dr. Carson's office on and everything was okay so she waited it out. However, when she noticed a fever this morning 101 F she states she gave him some Tylenol and knew he had to come to the hospital for evaluation. Patient currently denies having any headache, lightheadedness, dizziness, chest pain, palpitations, shortness of breath, cough or congestion, abdominal pain, back or flank pain, nausea, or vomiting. Upon arrival to our facility, patient underwent evaluation in the emergency department. Vital signs upon arrival show blood pressure 72/50, heart rate 59, respiratory rate 18, temp 98.7 F, and SpO2 of 95% on room air. EKG was completed showing sinus rhythm at 62 bpm with nonspecific T wave changes in inferior lateral leads and a prolonged QT/QTc of 478/483 ms upon personal review and interpretation. Chest x-ray completed negative for acute cardiopulmonary process. Labs completed and reviewed. CBC showing leukocytosis with WBC count of 16.0 and normocytic anemia with hemoglobin of 12.9. Coagulation profile normal findings. BMP sent with known CKD with BUN of 23, creatinine of 1.39, and GFR of 53 with baseline creatinine around 1.3. Blood glucose was 116. Lactic acid was 1.4. Magnesium normal findings at 2.2. Liver profile unremarkable. Troponin was 0.015. Urinalysis turbid appearance positive for protein, blood, nitrites, leukocyte esterase 40 RBCs, and greater than 182 WBCs. Is a, influenza B, RSV, and COVID PCR were negative. CT abdomen and pelvis without contrast completed showing decompressed urinary bladder with Mclean catheter in place along with bladder wall thickening and inflammatory changes suggestive of cystitis, bladder stones may also be present versus calcifications within the melton, bilateral nonobstructing renal calculi, cholelithiasis, and a large amount of stool burden throughout the distal colon and rectum. Urine culture and blood cultures were obtained. Patient started on broad-spectrum antibiotics with vancomycin and Zosyn and admitted under our services with consultation to urology and infectious disease. Physical exam: Vital signs reviewed and stable. General: Nontoxic, no distress and appears stated age. Derm: Skin warm and dry, normal coloration for ethnicity. Head: Atraumatic, normocephalic and symmetric. Eyes: EOM's intact, no lid lag, and anicteric sclera Mouth: no lip lesions, mucus membranes moist Cardiovascular: regular rate and rhythm with normal S1S2, no murmur, positive posterior tibial pulses bilaterally, and cap refill < 2 seconds. Lungs: Respirations even, regular, and unlabored on room air. Lungs CTA bilaterally, no rhonchi, no rales, no wheezing, and no accessory muscle usage. Abdominal: soft, nontender to palpation, no guarding, no appreciable organomega ly Ext: Left-sided weakness secondary to previous CVA left upper extremity contracture, wheelchair dependent. No edema. Neuro: Speech clear, face symmetrical and CN II-XII grossly intact with no noted focal neuro deficits Psych: Alert and oriented to person place but slightly confused to time and s ituation.. Appropriate and pleasant affect. Assessment and Plan of Care: Acute Cystitis associated with chronic indwelling Mclean catheter Sepsis upon arrival secondary to above Metabolic encephalopathy, secondary to above Bilateral nonobstructing renal calculi Bladder stones versus calcifications CKD stage III -Patient received 2 L sepsis bolus resulting in resolution of hypotension. -Continue broad-spectrum antibiotics with vancomycin 1500 mg every 12 hours and Zosyn 3.375 g every 8 hours with close monitoring of renal function and vancomycin trough to watch cautiously for any signs of vancomycin associated renal toxicity.. -Follow-up on urine culture and blood culture. -Urology consulted, Dr. Carson reports he is in agreement with current plan of care with continuation of IV antibiotics and recommend patient to follow-up outpatient in their office as he will likely need a cystoscopy with cystoscopy lithotripsy for nonobstructing renal stones. -Infectious disease consulted, appreciate recommendations -Patient to remain on continuous telemetry monitoring with close monitoring of vital signs every 4 hours. -Continue Flomax 0.4 mg nightly -Mclean catheter was changed out in the emergency department upon arrival, continue Mclean care. Constipation -CT showing a large amount of stool burden throughout the distal colon and rectum -Order placed for lactulose 30 g p.o. x 1 dose and patient started on MiraLAX 17 g daily. -Constipation resolving, RN reports 4 bowel movements since receiving lactulose. History of CVA with left-sided residual deficits Bilateral lower extremity peripheral neuropathy -Patient is wheelchair-bound. -Activity order placed to turn pt every 2 hours and as needed. -Fall precautions to be maintained -Patient to be provided with safe and supportive care and assistance as needed. -Continue aspirin 81 mg daily and pravastatin 40 mg nightly. Hypertension -Now that blood pressures have stabilized, patient to continue amlodipine 5 mg daily, lisinopril 20 mg daily, hydralazine 50 mg twice daily with parameters to hold for systolic pressure less than 110, and labetalol 300 mg twice daily with parameters placed to hold for systolic pressure less than 110 and/or heart rate less than 60. -Continue close monitoring of vital signs every 4 hours. Hyperlipidemia -Continue pravastatin 40 mg nightly. Data and imaging reviewed: Morning labs reviewed. CBC showing slight improvement of leukocytosis with WBC count decreasing from 16.0 down to 11.69 this morning and hemoglobin stable at 11.5. BMP showing metabolic acidosis with chloride of 112 and bicarb of 21 and anion gap of 11. Renal function stable with BUN of 17.1, creatinine of 1.2, GFR of 67. Liver profile unremarkable. Vital signs reviewed. Blood pressure 139/78, heart rate 74, respiratory rate 18, temp 98.8 F, and SpO2 of 97% on room air. CODE STATUS: Full code DVT prophylaxis: Lovenox Anticipated discharge date: Pending clinical course Anticipated discharge place: Pending clinical course Patient was seen independently by Nurse Practitioner. This document was prepared using [employer] dictation software. Please allow for errors in plate inspector while rare they do occur. I reviewed the documentation as provided by the JAEL above, who is the original author of this note. I agree with the documented assessment and plan, with the following changes: none Objective - Vital Signs Vital signs: Vital Signs Temp 98.2 F 01/28/24 03:12 Pulse 74 01/28/24 03:12 Resp 17 01/28/24 03:12 BP 144/79 01/28/24 03:12 Pulse Ox 97 01/28/24 03:12 FiO2 Intake & Output 01/27/24 01/28/24 01/28/24 18:59 06:59 18:59 Output Total 1350 Balance -1350 Weight 87.997 kg Output: Urine 1350 Other: # Bowel Movements 1 - Labs CBC & Chem 7: 01/28/24 02:25 01/28/24 02:25 Labs: Abnormal Lab Results - Last 24 Hours (Table) 01/27/24 01/27/24 01/27/24 Range/Units 14:20 14:20 14:24 WBC 16.0 H (3.8-10.6) k/uL RBC 4.16 L (4.30-5.90) m/uL Hgb 12.9 L (13.0-17.5) gm/dL Hct 37.8 L (39.0-53.0) % Neutrophils # 13.3 H (1.3-7.7) k/uL BUN 23 H (9-20) mg/dL Creatinine 1.39 H (0.66-1.25) mg/dL Glucose 116 H (74-99) mg/dL Urine Protein 1+ H (Negative) Urine RBC 40 H (0-5) /hpf Urine WBC >182 H (0-5) /hpf Urine WBC Clumps Many H (None) /hpf Ur Squamous Epith Cells 15 H (0-4) /hpf Urine Bacteria Occasional H (None) /hpf Urine Mucus Few H (None) /hpf
[2024-01-28] MEDS ORDERED: NON FORMULARY DRUG (Alendronate Sodium [Fosamax] 70 MG Tablet) PO SCH (17:06)
--- NOTE | 2024-01-28 22:50 | P.CONS ---
History of Present Illness - Reason for Consult Consult date: 01/28/24 Recurrent UTI currently with urosepsis Requesting physician: Dipak Tiff - Chief Complaint Fever not feeling well x 1 day - History of Present Illness Patient is a 64-year-old male past medical history significant for hypertension hyperlipidemia CVA TIA asthma presenting to the hospital for evaluation of not feeling well symptoms started the night before presentation the hospital when he did have low-grade fever patient did have chronic indwelling Mclean catheter because of his history of CVA with residual left-sided deficit patient Mclean catheter was last changed on Monday on presentation to the hospital he did have a low-grade fever of 99.1 degrees following right patient was nontachycardic hypotensive or hypoxic and no need for supplemental oxygen he did have vital of 16,000 with a left shift BUN/creatinine was mildly elevated urine was positive influenza RSV COVID testing was negative patient did have abdominal pelvis CT decompressed urinary bladder bladder wall thickening with inflammation suggestive of cystitis bilateral nonobstructive renal calculi large amount of stool throughout the distal colon and rectum patient has been started on Zosyn and vancomycin infectious disease was consulted for further management of antibiotic therapy blood and urine cultures are currently pending Review of Systems Positive point and negatives has been mentioned in the HPI, complete review of systems was performed and all other systems are negative Past Medical History Past Medical History: Asthma, CVA/TIA, Hyperlipidemia, Hypertension Additional Past Medical History / Comment(s): peripheral neroupathy marko LE, retinoneuropathy, urine retention, residual to the lt. side, no recent issues with asthma, uses wheelchair requires transfer assistance. History of Any Multi-Drug Resistant Organisms: None Reported Past Surgical History: Orthopedic Surgery, Tonsillectomy Additional Past Surgical History / Comment(s): toes amputated right foot after traumatic injury, cyctoscopy, Left hip surgery. Past Anesthesia/Blood Transfusion Reactions: No Reported Reaction Past Psychological History: No Psychological Hx Reported Smoking Status: Never smoker - Past Family History Father Family Medical History: Cancer Additional Family Medical History / Comment(s): Father at age 41 from leukemia. Mother Family Medical History: CVA/TIA, Diabetes Mellitus, Hypertension Additional Family Medical History / Comment(s): Mother in her 70s from pneumonia. Sister(s) Additional Family Medical History / Comment(s): Patient has 2 sisters with no major medical problems. Patient does not have any brothers, no children. Medications and Allergies Home Medications Medication Instructions Recorded Confirmed Type Pravastatin Sodium [Pravachol] 40 mg PO HS@209911/11/15 01/27/24 History Tamsulosin [Flomax] 0.4 mg PO HS@209911/11/15 01/27/24 History Venlafaxine HCl [Effexor] 37.5 mg PO BID@0900,209911/11/15 01/27/24 History lisinopriL [Zestril] 20 mg PO DAILY@0900 11/11/15 01/27/24 History Alendronate Sodium [Fosamax] 70 mg PO COBURN 01/20/22 01/27/24 History hydrALAZINE HCL [Apresoline] 50 mg PO BID@0900,209901/20/22 01/27/24 History Aloe Lax 1 tab PO BID@0900,209910/10/23 01/27/24 History Aspirin 81 mg PO DAILY@0910/10/23 01/27/24 History Calcium/Magnesium (Unknown) 1 tab PO DAILY@0900 10/10/23 01/27/24 History Cholecalciferol [Vitamin D3 (25 25 mcg PO DAILY@00 10/10/23 01/27/24 History Mcg = 1000 Iu)] Labetalol HCl 300 mg PO BID@0900,209910/10/23 01/27/24 History polyethylene glycoL 3350 [Miralax] 17 gm PO DAILY PRN 10/10/23 01/27/24 History Acetaminophen [Tylenol] 325 mg PO Q4H PRN 01/27/24 01/27/24 History Famotidine [Pepcid] 20 mg PO DAILY PRN 01/27/24 01/27/24 History Multivit-Mins/Iron/Folic/Lycop 1 tab PO BID@0900,209901/27/24 01/27/24 History [Centrum Men's Tablet] amLODIPine [Norvasc] 5 mg PO DAILY@0900 01/27/24 01/27/24 History Allergies Allergy/AdvReac Type Severity Reaction Status Date / Time cashew nut Allergy Anaphylaxis Verified 01/27/24 14:42 shellfish derived [Shellfish] Allergy Anaphylaxis Verified 01/27/24 14:42 Physical Exam Vitals: Vital Signs Temp Pulse Pulse Resp BP BP BP 01/28/24 07:32 98.8 F 74 18 139/78 01/28/24 03:12 98.2 F 74 17 144/79 01/27/24 23:22 98.8 F 77 134/76 01/27/24 19:40 99.0 F 80 17 148/84 01/27/24 18:25 98.1 F 79 18 133/77 01/27/24 17:59 99.1 F 79 18 120/76 01/27/24 15:15 63 18 121/70 01/27/24 14:45 60 16 111/72 01/27/24 14:30 65 16 111/67 01/27/24 14:03 61 19 89/64 01/27/24 13:45 98.7 F 59 L 18 72/50 Pulse Ox 01/28/24 07:32 97 01/28/24 03:12 97 01/27/24 23:22 95 01/27/24 19:40 98 01/27/24 18:25 98 01/27/24 17:59 96 01/27/24 15:15 95 01/27/24 14:45 95 01/27/24 14:30 94 L 01/27/24 14:03 96 01/27/24 13:45 95 Intake and Output 01/27/24 01/28/24 01/28/24 22:59 06:59 14:59 Output Total 1350 325 Balance -1350 -325 Output: Urine 1350 325 Other: # Bowel Movements 1 1 Weight 87.997 kg GENERAL DESCRIPTION: Elderly male lying in bed, no distress. No tachypnea or accessory muscle of respiration use. HEENT: Shows Pallor , no scleral icterus. Oral mucous membrane is dry. No pharyngeal erythema or thrush NECK: Trachea central, no thyromegaly. LUNGS: Unlabored breathing. Clear to auscultation anteriorly. No wheeze or crackle. HEART: S1, S2, regular rate and rhythm. No loud murmur ABDOMEN: Soft, no tenderness , guarding or rigidity, no organomegaly EXTREMITIES: No edema of feet. SKIN: No rash, no masses palpable. NEUROLOGICAL: The patient is awake, alert, oriented x3, mood and affect normal. Results CBC & Chem 7: 01/28/24 02:25 10/20/24 02:25 Labs: Abnormal Lab Results - Last 24 Hours (Table) 01/27/24 01/27/24 01/27/24 Range/Units 14:20 14:20 14:24 WBC 16.0 H (3.8-10.6) k/uL RBC 4.16 L (4.30-5.90) m/uL Hgb 12.9 L (13.0-17.5) gm/dL Hct 37.8 L (39.0-53.0) % Neutrophils # 13.3 H (1.3-7.7) k/uL Chloride (96-109) mmol/L Carbon Dioxide (21.6-31.8) mmol/L BUN 23 H (9-20) mg/dL Creatinine 1.39 H (0.66-1.25) mg/dL Glucose 116 H (74-99) mg/dL Calcium (8.7-10.3) mg/dL Albumin (3.8-4.9) g/dL Albumin/Globulin Ratio (1.60-3.17) Ratio Urine Protein 1+ H (Negative) Urine RBC 40 H (0-5) /hpf Urine WBC >182 H (0-5) /hpf Urine WBC Clumps Many H (None) /hpf Ur Squamous Epith Cells 15 H (0-4) /hpf Urine Bacteria Occasional H (None) /hpf Urine Mucus Few H (None) /hpf 01/28/24 01/28/24 Range/Units 02:25 02:25 WBC 11.69 H (3.8-10.6) k/uL RBC 3.72 L (4.30-5.90) m/uL Hgb 11.5 L (13.0-17.5) gm/dL Hct 35.3 L (39.0-53.0) % Neutrophils # 8.88 H (1.3-7.7) k/uL Chloride 112 H (96-109) mmol/L Carbon Dioxide 21.0 L (21.6-31.8) mmol/L BUN (9-20) mg/dL Creatinine (0.66-1.25) mg/dL Glucose (74-99) mg/dL Calcium 8.6 L (8.7-10.3) mg/dL Albumin 3.7 L (3.8-4.9) g/dL Albumin/Globulin Ratio 1.48 L (1.60-3.17) Ratio Urine Protein (Negative) Urine RBC (0-5) /hpf Urine WBC (0-5) /hpf Urine WBC Clumps (None) /hpf Ur Squamous Epith Cells (0-4) /hpf Urine Bacteria (None) /hpf Urine Mucus (None) /hpf Assessment and Plan (1) Catheter-associated urinary tract infection Current Visit: Yes Status: Acute Code(s): T83.511A - I/I REACT D/T INDWELLING URETHRAL CATHETER, INIT; N39.0 - URINARY TRACT INFECTION, SITE NOT SPECIFIED SNOMED Code(s): 843743896 (2) Leukocytosis Current Visit: No Status: Acute Code(s): D72.829 - ELEVATED WHITE BLOOD CELL COUNT, UNSPECIFIED SNOMED Code(s): 402180649 Plan: 1patient presents hospital with fever not feeling well in this patient who did have elevated white count of 16,000 on admission significantly positive UA likely related to catheter associated UTI likely from enteric gram-negative path ogen less likely a gram-positive pathogen 2-we will continue with Zosyn however discontinue vancomycin to decrease the risk of nephrotoxicity 3-cultures will be followed antibiotic adjusted if needed We will follow on clinical condition and cultures to further adjust medication if needed Thank you for this consultation we will follow the patient along with you Dictation was produced using [employer] dictation software. please excuse any grammatical, word or spelling errors. Time with Patient: Greater than 30
[2024-01-29] MEDS: VANCOMYCIN TROUGH DUE 1 EACH MISC MISCELLANE ONE (07:41)
[2024-01-29 09:01] LABS: HCT 35.5 % (39.6-50.0); HGB 11.5 g/dL (13.0-17.0); MCH 29.9 pg (27.0-32.0); MCHC 32.4 g/dL (32.0-37.0); MCV 92.2 FL (80.0-97.0); Mean Platelet Volume 9.4 FL (9.5-12.2); NRBC Per 100 WBC 0 X 10*3/uL (0.00-0.01); Platelet Count 155 X 10*3/uL (140-440); RBC 3.85 X 10*6/uL (4.40-5.60); RDW 13.2 % (11.5-14.5); WBC 9.74 X 10*3/uL (4.50-10.00)
[2024-01-29 09:22] LABS: ALT 16 U/L (10-49); AST 25 U/L (14-35); Albumin 3.5 g/dL (3.8-4.9); Alkaline Phosphatase 69 U/L (41-126); Blood Urea Nitrogen 15.1 mg/dL (9.0-27.0); Calcium 8.5 mg/dL (8.7-10.3); Carbon Dioxide 14.2 mmol/L (21.6-31.8); Chloride 107 mmol/L (96-109); Globulin 2.5 g/dL (1.6-3.3); Glucose 54 mg/dL (70-110); Potassium 3.6 mmol/L (3.5-5.5); Sodium 141 mmol/L (135-145); Total Bilirubin 0.6 mg/dL (0.3-1.2)
--- NOTE | 2024-01-29 12:51 | P.PN ---
Subjective Progress Note Date: 01/29/24 Principal diagnosis: Reason for follow-up is a catheter assisted intake infection and possible dental infection Patient is a 64-year-old male past medical history significant for hypertension hyperlipidemia CVA TIA asthma presenting to the hospital for evaluation of not feeling well, patient did have a chronic indwelling Mclean did have a fever CT abdominal pelvis with suspicious for cystitis and did have a positive UA concerning for catheter assisted UTI. On today's evaluation that is 01/29/2024, Patient is afebrile patient is currently on room air and denies having any shortness of breath, the patient denies any chest pain or cough, the patient denies any nausea vomiting did not have any abdominal pain and no diarrhea patient complaining of pain to the left upper jaw because of his tooth infection. Patient white normalized to 9.74, creatinine is 1.0 urine is growing gram- negative bacilli Objective - Vital Signs Vital signs: Vital Signs Temp 98.5 F 01/29/24 12:14 Pulse 67 01/29/24 12:14 Resp 17 01/29/24 12:14 BP 129/75 01/29/24 12:14 Pulse Ox 95 01/29/24 12:14 FiO2 Intake & Output 01/28/24 01/29/24 01/29/24 18:59 06:59 18:59 Output Total 1225 1000 Balance -1225 -1000 Output: Urine 1225 1000 Other: # Bowel Movements 1 - Exam Elderly male lying in bed in no distress No tachypnea or use of accessory muscle respiration Unlabored breathing - Labs CBC & Chem 7: 01/29/24 05:51 01/29/24 05:51 Labs: Abnormal Lab Results - Last 24 Hours (Table) 01/29/24 01/29/24 Range/Units 05:51 05:51 RBC 3.85 L (4.40-5.60) X 10*6/uL Hgb 11.5 L (13.0-17.0) g/dL Hct 35.5 L (39.6-50.0) % MPV 9.4 L (9.5-12.2) FL Carbon Dioxide 14.2 L (21.6-31.8) mmol/L Anion Gap 19.80 H (4.00-12.00) mmol/L Glucose 54 L (70-110) mg/dL Calcium 8.5 L (8.7-10.3) mg/dL Total Protein 6.0 L (6.2-8.2) g/dL Albumin 3.5 L (3.8-4.9) g/dL Albumin/Globulin Ratio 1.40 L (1.60-3.17) Ratio Microbiology - Last 24 Hours (Table) 01/27/24 14:20 Blood Culture - Preliminary Blood 01/27/24 14:24 Urine Culture - Preliminary Urine,Voided Gram Neg Bacilli Assessment and Plan (1) Catheter-associated urinary tract infection Current Visit: Yes Status: Acute Code(s): T83.511A - I/I REACT D/T INDWELLING URETHRAL CATHETER, INIT; N39.0 - URINARY TRACT INFECTION, SITE NOT SPECIFIED SNOMED Code(s): 960318790 (2) Leukocytosis Current Visit: No Status: Acute Code(s): D72.829 - ELEVATED WHITE BLOOD CELL COUNT, UNSPECIFIED SNOMED Code(s): 346007650 Plan: 1patient presents hospital with fever not feeling well in this patient who did have elevated white count of 16,000 on admission significantly positive UA likely related to catheter associated UTI likely from enteric gram-negative pathogen less likely a gram-positive pathogen 2-patient also complaining of left-sided jaw pain possible dental infection 3urine is growing gram-negative with ID sensitive pending we will continue with N[place]ka while waiting for the culture to finalize Dictation was produced using [employer] dictation software. please excuse any grammatical, word or spelling errors. Time with Patient: Less than 30
[2024-01-29] MEDS: MORPHINE SULFATE 4 MG/ML SYRINGE IV PRN (13:16)
[2024-01-29] MEDS: BENZOCAINE 20 % GEL 11.9 GM TUBE MM ONE (13:17)
[2024-01-29] MEDS ORDERED: DEXTROSE 50% SYRINGE 50 ML IVP PRN ×2 (14:13)
--- NOTE | 2024-01-29 14:24 | P.PN ---
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 He presented to the emergency department with a chief complaint of overall feeling "unwell". Patient reports over the past couple of days he has not been feeling well at all, admitting to feeling generally weak and fatigued, excessively tired, chills, diaphoresis and just not like himself. Caregiver at bedside reports she first noticed the symptoms last night and reports he has had 2 episodes of kidney stones along with 4 urinary tract infections over the past year with similar complaints, but states his Mclean catheter was just changed at Dr. Carson's office on and everything was okay so she waited it out. However, when she noticed a fever this morning 101 F she states she gave him some Tylenol and knew he had to come to the hospital for evaluation. Patient currently denies having any headache, lightheadedness, dizziness, chest pain, palpitations, shortness of breath, cough or congestion, abdominal pain, back or flank pain, nausea, or vomiting. Upon arrival to our facility, patient underwent evaluation in the emergency department. Vital signs upon arrival show blood pressure 72/50, heart rate 59, respiratory rate 18, temp 98.7 F, and SpO2 of 95% on room air. EKG was completed showing sinus rhythm at 62 bpm with nonspecific T wave changes in inferior lateral leads and a prolonged QT/QTc of 478/483 ms upon personal review and interpretation. Chest x-ray completed negative for acute cardiopulmonary process. Labs completed and reviewed. CBC showing leukocytosis with WBC count of 16.0 and normocytic anemia with hemoglobin of 12.9. Coagulation profile normal findings. BMP sent with known CKD with BUN of 23, creatinine of 1.39, and GFR of 53 with baseline creatinine around 1.3. Blood glucose was 116. Lactic acid was 1.4. Magnesium normal findings at 2.2. Liver profile unremarkable. Troponin was 0.015. Urinalysis turbid appearance positive for protein, blood, nitrites, leukocyte esterase 40 RBCs, and greater than 182 WBCs. Is a, influenza B, RSV, and COVID PCR were negative. CT abdomen and pelvis without contrast completed showing decompressed urinary bladder with Mclean catheter in place along with bladder wall thickening and inflammatory changes suggestive of cystitis, bladder stones may also be present versus calcifications within the melton, bilateral nonobstructing renal calculi, cholelithiasis, and a large amount of stool burden throughout the distal colon and rectum. Urine culture and blood cultures were obtained. Patient started on broad-spectrum antibiotics with vancomycin and Zosyn and admitted under our services with consultation to urology and infectious disease. Physical exam: Patient seen and fully evaluated at bedside this morning. 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 Patient reports broken molar and decay and unable to fully open mouth secondary to severe pain. Vital signs reviewed and stable. General: Nontoxic, no distress and appears stated age. Derm: Skin warm and dry, normal coloration for ethnicity. Head: Atraumatic, normocephalic and symmetric. Eyes: EOM's intact, no lid lag, and anicteric sclera Mouth: no lip lesions, mucus membranes moist Cardiovascular: regular rate and rhythm with normal S1S2, no murmur, positive posterior tibial pulses bilaterally, and cap refill < 2 seconds. Lungs: Respirations even, regular, and unlabored on room air. Lungs CTA bilaterally, no rhonchi, no rales, no wheezing, and no accessory muscle usage. Abdominal: soft, nontender to palpation, no guarding, no appreciable organomegaly Ext: Left-sided weakness secondary to previous CVA left upper extremity contracture, wheelchair dependent. No edema. Neuro: Speech clear, face symmetrical and CN II-XII grossly intact with no noted focal neuro deficits Psych: Alert and oriented to person place but slightly confused to time and situation.. Appropriate and pleasant affect. Assessment and Plan of Care: Acute Cystitis associated with chronic indwelling Mclean catheter Sepsis upon arrival secondary to above Metabolic encephalopathy, secondary to above Bilateral nonobstructing renal calculi Bladder stones versus calcifications CKD stage III -Patient received 2 L sepsis bolus resulting in resolution of hypotension. -Continue IV antibiotics with Zosyn 3.375 g every 8 hours with close monitoring of renal function and vancomycin trough to watch cautiously for any signs of vancomycin associated renal toxicity.. -Follow-up on urine culture and blood culture. -Urology consulted, Dr. Carson reports he is in agreement with current plan of care with continuation of IV antibiotics and recommend patient to follow-up outpatient in their office as he will likely need a cystoscopy with cystoscopy lithotripsy for nonobstructing renal stones. -Infectious disease consulted, appreciate recommendations -Patient to remain on continuous telemetry monitoring with close monitoring of vital signs every 4 hours. -Continue Flomax 0.4 mg nightly -Mclean catheter was changed out in the emergency department upon arrival, continue Mclean care. 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 Patient reports broken molar and decay and unable to fully open mouth secondary to severe pain. -Unable to evaluate/assess appropriately secondary to patient's severe pain and reports of inability to fully open mouth. -Order placed for CT face to rule out dental abscess -Continue symptomatic care and pain management, Tylenol 650 mg every 6 hours as needed for mild pain/fever, [place] 5/325 mg tablets every 4 hours as needed for moderate pain, and morphine 4 mg IVP every 4 hours as needed for severe pain. -Order also placed for Orajel. Hypoglycemia -Likely secondary to decreased appetite/oral intake secondary to reports of dental pain throughout the night and morning. -Patient provided with juice this morning and is being placed on [id number] glucose checks every 4 hours. Constipation, resolved. -Continue MiraLAX 17 g daily. History of CVA with left-sided residual deficits Bilateral lower extremity peripheral neuropathy -Patient is wheelchair-bound. -Activity order placed to turn pt every 2 hours and as needed. -Fall precautions to be maintained -Patient to be provided with safe and supportive care and assistance as needed. -Continue aspirin 81 mg daily and pravastatin 40 mg nightly. Hypertension -Now that blood pressures have stabilized, patient to continue amlodipine 5 mg daily, lisinopril 20 mg daily, hydralazine 50 mg twice daily with parameters to hold for systolic pressure less than 110, and labetalol 300 mg twice daily with parameters placed to hold for systolic pressure less than 110 and/or heart rate less than 60. -Continue close monitoring of vital signs every 4 hours. Hyperlipidemia -Continue pravastatin 40 mg nightly. Data and imaging reviewed: Morning labs reviewed. CBC showing resolution of leukocytosis with WBC count of 9.74 from initial 16.0 along with stable normocytic anemia with hemoglobin of 11.5. BMP showing high anion gap metabolic acidosis with chloride of 107, bicarb of 14.2, and anion gap of 19.80. Blood glucose this morning was low at 54. Magnesium 2.0. Vancomycin trough was therapeutic at 17.4. Vital signs reviewed. Blood pressure 126/70, heart rate 70, respiratory rate 16, temp 98.5 F, and SpO2 of 96% on room air. CODE STATUS: Full code DVT prophylaxis: Lovenox Anticipated discharge date: Pending clinical course Anticipated discharge place: Pending clinical course Patient was seen independently by Nurse Practitioner. This document was prepared using [employer] dictation software. Please allow for errors in faculty criminal justice while rare they do occur. I reviewed the documentation as provided by the JAEL above, who is the original author of this note. I agree with the documented assessment and plan, with the following changes: none. . Objective - Vital Signs Vital signs: Vital Signs Temp 98.5 F 01/29/24 07:06 Pulse 70 01/29/24 07:06 Resp 16 01/29/24 07:06 BP 126/70 01/29/24 07:06 Pulse Ox 96 01/29/24 07:06 FiO2 Intake & Output 01/28/24 01/29/24 01/29/24 18:59 06:59 18:59 Output Total 1225 1000 Balance -1225 -1000 Output: Urine 1225 1000 Other: # Bowel Movements 1 - Labs CBC & Chem 7: 01/29/24 05:51 01/29/24 05:51 Labs: Abnormal Lab Results - Last 24 Hours (Table) 01/28/24 01/28/24 Range/Units 02:25 02:25 WBC 11.69 H (4.50-10.00) X 10*3/uL RBC 3.72 L (4.40-5.60) X 10*6/uL Hgb 11.5 L (13.0-17.0) g/dL Hct 35.3 L (39.6-50.0) % Neutrophils # 8.88 H (1.80-7.70) X 10*3/uL Chloride 112 H (96-109) mmol/L Carbon Dioxide 21.0 L (21.6-31.8) mmol/L Calcium 8.6 L (8.7-10.3) mg/dL Albumin 3.7 L (3.8-4.9) g/dL Albumin/Globulin Ratio 1.48 L (1.60-3.17) Ratio Microbiology - Last 24 Hours (Table) 01/27/24 14:20 Blood Culture - Preliminary Blood 01/27/24 14:24 Urine Culture - Preliminary Urine,Voided Gram Neg Bacilli
[2024-01-29 14:25] LABS: Glucose,Whole Blood 78 mg/dL (70-110)
--- NOTE | 2024-01-29 15:45 | CT ---
EXAMINATION TYPE: CT facial bones w con DATE OF EXAM: 01/29/2024 COMPARISON: HISTORY: dental pain on left side , rule out dental abscess. CT DLP: 882.5 mGycm Automated exposure control for dose reduction was used. CONTRAST: CT scan of the facial bones is performed with IV Contrast, patient injected with 80ml mL of Isovue 37 0. TECHNIQUE: CT scan of the sinuses is performed without contrast, axial images are obtained, coronal r eformatted images are also reviewed. There is no osseous destruction of the mandible. No soft tissue fluid collection or abscess. There is marked chronic inflammatory change of the right maxillary sinus and marked deviation of nasa l septum to the right. The right ostiomeatal complex is occluded. The remaining paranasal sinuses and mastoid air cells are well aerated. IMPRESSION: 1. No evidence of dental abscess. 2. Marked chronic right maxillary sinusitis with deviation of nasal septum as described above [facility], , 01/29/2024 3:43 PM
[2024-01-29 16:31] LABS: Glucose,Whole Blood 64 mg/dL (70-110)
[2024-01-29 18:04] LABS: Glucose,Whole Blood 81 mg/dL (70-110)
[2024-01-29 21:06] LABS: Glucose,Whole Blood 73 mg/dL (70-110)
[2024-01-30] MEDS: HYDROcodone/APAP 5-325MG 1 EACH TAB PO PRN (00:20)
[2024-01-30 02:20] LABS: Glucose,Whole Blood 73 mg/dL (70-110)
[2024-01-30 06:54] LABS: Glucose,Whole Blood 86 mg/dL (70-110)
[2024-01-30 08:54] LABS: HCT 36.1 % (39.6-50.0); HGB 12.1 g/dL (13.0-17.0); MCH 31.3 pg (27.0-32.0); MCHC 33.5 g/dL (32.0-37.0); MCV 93.3 FL (80.0-97.0); Mean Platelet Volume 9.5 FL (9.5-12.2); NRBC Per 100 WBC 0 X 10*3/uL (0.00-0.01); Platelet Count 169 X 10*3/uL (140-440); RBC 3.87 X 10*6/uL (4.40-5.60); RDW 13.2 % (11.5-14.5); WBC 8.84 X 10*3/uL (4.50-10.00)
[2024-01-30 10:14] LABS: Glucose,Whole Blood 76 mg/dL (70-110)
[2024-01-30 10:44] LABS: Magnesium 1.9 mg/dL (1.5-2.4)
[2024-01-30 11:13] LABS: ALT 25 U/L (10-49); AST 33 U/L (14-35); Albumin 3.7 g/dL (3.8-4.9); Albumin/Globulin Ratio 1.42 Ratio (1.60-3.17); Alkaline Phosphatase 87 U/L (41-126); Blood Urea Nitrogen 11.8 mg/dL (9.0-27.0); Calcium 8.9 mg/dL (8.7-10.3); Carbon Dioxide 19.1 mmol/L (21.6-31.8); Chloride 105 mmol/L (96-109); Globulin 2.6 g/dL (1.6-3.3); Glucose 74 mg/dL (70-110); Potassium 3.5 mmol/L (3.5-5.5); Sodium 138 mmol/L (135-145); Total Bilirubin 0.5 mg/dL (0.3-1.2); Total Protein 6.3 g/dL (6.2-8.2)
[2024-01-30 16:15] LABS: Glucose,Whole Blood 88 mg/dL (70-110)
[2024-01-30] MEDS: ONDANSETRON 4 MG/2 ML VIAL IVP PRN (17:26)
--- NOTE | 2024-01-30 18:16 | P.PN ---
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 He presented to the emergency department with a chief complaint of overall feeling "unwell". Patient reports over the past couple of days he has not been feeling well at all, admitting to feeling generally weak and fatigued, excessively tired, chills, diaphoresis and just not like himself. Caregiver at bedside reports she first noticed the symptoms last night and reports he has had 2 episodes of kidney stones along with 4 urinary tract infections over the past year with similar complaints, but states his Mclean catheter was just changed at Dr. Carson's office on and everything was okay so she waited it out. However, when she noticed a fever this morning 101 F she states she gave him some Tylenol and knew he had to come to the hospital for evaluation. Patient currently denies having any headache, lightheadedness, dizziness, chest pain, palpitations, shortness of breath, cough or congestion, abdominal pain, back or flank pain, nausea, or vomiting. Upon arrival to our facility, patient underwent evaluation in the emergency department. Vital signs upon arrival show blood pressure 72/50, heart rate 59, respiratory rate 18, temp 98.7 F, and SpO2 of 95% on room air. EKG was completed showing sinus rhythm at 62 bpm with nonspecific T wave changes in inferior lateral leads and a prolonged QT/QTc of 478/483 ms upon personal review and interpretation. Chest x-ray completed negative for acute cardiopulmonary process. Labs completed and reviewed. CBC showing leukocytosis with WBC count of 16.0 and normocytic anemia with hemoglobin of 12.9. Coagulation profile normal findings. BMP sent with known CKD with BUN of 23, creatinine of 1.39, and GFR of 53 with baseline creatinine around 1.3. Blood glucose was 116. Lactic acid was 1.4. Magnesium normal findings at 2.2. Liver profile unremarkable. Troponin was 0.015. Urinalysis turbid appearance positive for protein, blood, nitrites, leukocyte esterase 40 RBCs, and greater than 182 WBCs. Is a, influenza B, RSV, and COVID PCR were negative. CT abdomen and pelvis without contrast completed showing decompressed urinary bladder with Mclean catheter in place along with bladder wall thickening and inflammatory changes suggestive of cystitis, bladder stones may also be present versus calcifications within the melton, bilateral nonobstructing renal calculi, cholelithiasis, and a large amount of stool burden throughout the distal colon and rectum. Urine culture and blood cultures were obtained. Patient started on broad-spectrum antibiotics with vancomycin and Zosyn and admitted under our services with consultation to urology and infectious disease. Physical exam: Patient seen and fully evaluated at bedside this morning. He was resting comfortably and reports overall feeling a bit better today. Patient reports only complaint at this time is feeling tired. Patient reports he did not get much sleep from being woken up to have his blood sugar checked and vital signs. Vital signs reviewed and stable. General: Nontoxic, no distress and appears stated age. Derm: Skin warm and dry, normal coloration for ethnicity. Head: Atraumatic, normocephalic and symmetric. Eyes: EOM's intact, no lid lag, and anicteric sclera Mouth: no lip lesions, mucus membranes moist Cardiovascular: regular rate and rhythm with normal S1S2, no murmur, positive posterior tibial pulses bilaterally, and cap refill < 2 seconds. Lungs: Respirations even, regular, and unlabored on room air. Lungs CTA bilaterally, no rhonchi, no rales, no wheezing, and no accessory muscle usage. Abdominal: soft, nontender to palpation, no guarding, no appreciable organomegaly Ext: Left-sided weakness secondary to previous CVA left upper extremity contracture, wheelchair dependent. No edema. Neuro: Speech clear, face symmetrical and CN II-XII grossly intact with no noted focal neuro deficits Psych: Alert and oriented to person place but slightly confused to time and situation.. Appropriate and pleasant affect. Assessment and Plan of Care: Citrobacter freundii and Aerococcus urinae UTI associated with chronic indwelling Mclean catheter Sepsis upon arrival secondary to above Metabolic encephalopathy, secondary to above Bilateral nonobstructing renal calculi Bladder stones versus calcifications CKD stage III -Patient received 2 L sepsis bolus resulting in resolution of hypotension. -Continue IV antibiotics with Zosyn 3.375 g every 8 hours with close monitoring of renal function and vancomycin trough to watch cautiously for any signs of vancomycin associated renal toxicity.. -Urine culture positive for Citrobacter freundii and Aerococcus urinae -Blood cultures showing no growth to date -Urology consulted, Dr. Carson reports he is in agreement with current plan of care with continuation of IV antibiotics and recommend patient to follow-up outpatient in their office as he will likely need a cystoscopy with cystoscopy lithotripsy for nonobstructing renal stones. -Infectious disease following, discussed with Dr. Hutson recommending IV antibiotics for an additional 24 hours and discharge home likely tomorrow on oral antibiotics with Bactrim. -Patient to remain on continuous telemetry monitoring with close monitoring of vital signs every 4 hours. -Continue Flomax 0.4 mg nightly -Mclean catheter was changed out in the emergency department upon arrival, cont inue Mclean care. Dental pain -CT face was completed, showing no evidence of dental abscess. -Continue symptomatic care and pain management, Tylenol 650 mg every 6 hours as needed for mild pain/fever, [place] 5/325 mg tablets every 4 hours as needed for moderate pain, and morphine 4 mg IVP every 4 hours as needed for severe pain. -Continue Orajel as needed. Hypoglycemia -Likely secondary to decreased appetite/oral intake secondary to reports of dental pain throughout the night and morning. -Patient had no further episodes of hypoglycemia, will increase [id number] glucose checks to every 6 hours. Constipation, resolved. -Continue MiraLAX 17 g daily. History of CVA with left-sided residual deficits Bilateral lower extremity peripheral neuropathy -Patient is wheelchair-bound. -Activity order placed to turn pt every 2 hours and as needed. -Fall precautions to be maintained -Patient to be provided with safe and supportive care and assistance as needed. -Continue aspirin 81 mg daily and pravastatin 40 mg nightly. Hypertension -Now that blood pressures have stabilized, patient to continue amlodipine 5 mg daily, lisinopril 20 mg daily, hydralazine 50 mg twice daily with parameters to hold for systolic pressure less than 110, and labetalol 300 mg twice daily with parameters placed to hold for systolic pressure less than 110 and/or heart rate less than 60. -Continue close monitoring of vital signs every 4 hours. Hyperlipidemia -Continue pravastatin 40 mg nightly. Data and imaging reviewed: Morning labs reviewed. CBC showing stable normocytic anemia with hemoglobin of 12.1. BMP showing bicarb of 19.1 and anion gap of 13.9 otherwise normal findings. Blood glucose 74. Magnesium 1.9. Liver profile unremarkable with exception of mild hypoalbuminemia with albumin of 3.7. Vital signs reviewed. Blood pressure 135/75, heart rate 67, respiratory rate 16, temp 97.7 F, and SpO2 of 97% on room air. CODE STATUS: Full code DVT prophylaxis: Lovenox Anticipated discharge date: Likely tomorrow morning Anticipated discharge place: Return home with home care Patient was seen independently by Nurse Practitioner. This document was prepared using [employer] dictation software. Please allow for errors in superintendent drilling and production while rare they do occur. I reviewed the documentation as provided by the JAEL above, who is the original author of this note. I agree with the documented assessment and plan, with the following changes: none. Objective - Vital Signs Vital signs: Vital Signs Temp 97.7 F 01/30/24 06:55 Pulse 67 01/30/24 06:55 Resp 16 01/30/24 06:55 BP 135/75 01/30/24 06:55 Pulse Ox 97 01/30/24 06:55 FiO2 Intake & Output 01/29/24 01/30/24 01/30/24 18:59 06:59 18:59 Output Total 550 400 Balance -550 -400 Output: Urine 550 400 Other: # Bowel Movements 0 - Labs CBC & Chem 7: 01/30/24 02:35 01/30/24 02:35 Labs: Abnormal Lab Results - Last 24 Hours (Table) 01/29/24 01/30/24 Range/Units 16:29 02:35 RBC 3.87 L (4.40-5.60) X 10*6/uL Hgb 12.1 L (13.0-17.0) g/dL Hct 36.1 L (39.6-50.0) % POC Glucose (mg/dL) 64 L (70-110) mg/dL Microbiology - Last 24 Hours (Table) 01/27/24 14:20 Blood Culture - Preliminary Blood 01/27/24 14:24 Urine Culture - Preliminary Urine,Voided Gram Neg Bacilli Aerococcus urinae
[2024-01-30 20:57] LABS: Glucose,Whole Blood 69 mg/dL (70-110)
--- NOTE | 2024-01-30 22:38 | P.PN ---
Subjective Progress Note Date: 01/30/24 Principal diagnosis: Reason for follow-up is a catheter assisted intake infection and possible dental infection Patient is a 64-year-old male past medical history significant for hypertension hyperlipidemia CVA TIA asthma presenting to the hospital for evaluation of not feeling well, patient did have a chronic indwelling Mclean did have a fever CT abdominal pelvis with suspicious for cystitis and did have a positive UA concerning for catheter assisted UTI. On today's evaluation that is 01/30/2024, patient has been afebrile, patient is breathing comfortably and is currently on room air, patient denies having any significant cough no chest pain, patient denies nausea vomiting or diarrhea and no abdominal pain, no new symptoms. Patient white count is 8.84, creatinine is 1.0 culture grew Citrobacter sensitive to Zosyn as well as Aerococcus urinae blood culture has been negative Objective - Vital Signs Vital signs: Vital Signs Temp 97.7 F 01/30/24 06:55 Pulse 67 01/30/24 06:55 Resp 16 01/30/24 06:55 BP 135/75 01/30/24 06:55 Pulse Ox 97 01/30/24 06:55 FiO2 Intake & Output 01/29/24 01/30/24 01/30/24 18:59 06:59 18:59 Output Total 550 400 Balance -550 -400 Output: Urine 550 400 Other: # Bowel Movements 0 - Exam Elderly male lying in bed in no distress No tachypnea or use of accessory muscle respiration Unlabored breathing - Labs CBC & Chem 7: 01/30/24 02:35 01/30/24 02:35 Labs: Abnormal Lab Results - Last 24 Hours (Table) 01/29/24 01/30/24 01/30/24 Range/Units 16:29 02:35 02:35 RBC 3.87 L (4.40-5.60) X 10*6/uL Hgb 12.1 L (13.0-17.0) g/dL Hct 36.1 L (39.6-50.0) % Carbon Dioxide 19.1 L (21.6-31.8) mmol/L Anion Gap 13.90 H (4.00-12.00) mmol/L BUN/Creatinine Ratio 11.80 L (12.00-20.00) Ratio POC Glucose (mg/dL) 64 L (70-110) mg/dL Albumin 3.7 L (3.8-4.9) g/dL Albumin/Globulin Ratio 1.42 L (1.60-3.17) Ratio Microbiology - Last 24 Hours (Table) 01/27/24 14:20 Blood Culture - Preliminary Blood 01/27/24 14:24 Urine Culture - Preliminary Urine,Voided Gram Neg Bacilli Aerococcus urinae Assessment and Plan (1) Catheter-associated urinary tract infection Current Visit: Yes Status: Acute Code(s): T83.511A - I/I REACT D/T INDWELLING URETHRAL CATHETER, INIT; N39.0 - URINARY TRACT INFECTION, SITE NOT SPECIFIED SNOMED Code(s): 207426979 (2) Leukocytosis Current Visit: No Status: Acute Code(s): D72.829 - ELEVATED WHITE BLOOD CELL COUNT, UNSPECIFIED SNOMED Code(s): 449152763 Plan: 1patient presents hospital with fever not feeling well in this patient who did have elevated white count of 16,000 on admission significantly positive UA likely related to catheter associated UTI likely from enteric gram-negative pathogen less likely a gram-positive pathogen 2-patient also complaining of left-sided jaw pain possible dental infection 3urine is growing Citrobacter with the resistant pathogen as well as Aerococcus 4-we will continue with Zosyn for another 24 hours and plan to finish therapy with 7-day course of Bactrim DS and Augmentin discussed with the COMIC ILLUSTRATOR for admitting team Dictation was produced using [employer] dictation software. please excuse any grammatical, word or spelling errors. Time with Patient: Less than 30
[2024-01-31 00:37] LABS: Glucose,Whole Blood 85 mg/dL (70-110)
[2024-01-31 05:19] LABS: Bacteria,Urine Rare /hpf; Budding Yeast,Urine Occasional /hpf; Hyaline Casts,Urine 2 /lpf (0-2); Mucus,Urine Rare /hpf; RBC,Urine 167 /hpf (0-5); Squamous Epithelial Cell,Urine 1 /hpf (0-4); WBC,Urine 156 /hpf (0-5)
[2024-01-31 05:26] LABS: Color,Urine Yellow
[2024-01-31 05:27] LABS: Appearance,Urine Turbid (Clear); Bilirubin,Urine 1+ (Negative); Glucose,Urine (UA) Negative (Negative); Ketones,Urine 2+ (Negative); Protein,Urine 2+ (Negative); Specific Gravity,Urine 1.033 (1.001-1.035)
[2024-01-31 05:28] LABS: Blood,Urine Moderate (Negative); Leukocyte Esterase,Urine Large (Negative); Nitrite,Urine Negative (Negative); Urobilinogen,Urine <2.0 mg/dL (<2.0)
[2024-01-31 06:50] LABS: Glucose,Whole Blood 80 mg/dL (70-110)
[2024-01-31 08:46] LABS: Basophils # (A) 0.05 X 10*3/uL (0.00-0.10); Basophils % (A) 0.4 %; Eosinophils # (A) 0.13 X 10*3/uL (0.04-0.35); HCT 35.2 % (39.6-50.0); HGB 11.5 g/dL (13.0-17.0); Lymphocytes # (A) 1.41 X 10*3/uL (0.90-5.00); Lymphocytes % (A) 11.3 %; MCH 29.9 pg (27.0-32.0); MCHC 32.7 g/dL (32.0-37.0); MCV 91.4 FL (80.0-97.0); Mean Platelet Volume 9.4 FL (9.5-12.2); Monocytes # (A) 0.69 X 10*3/uL (0.20-1.00); Monocytes % (A) 5.5 %; NRBC Per 100 WBC 0 X 10*3/uL (0.00-0.01); Neutrophils % (A) 81.2 %; Platelet Count 186 X 10*3/uL (140-440); RBC 3.85 X 10*6/uL (4.40-5.60); RDW 13.2 % (11.5-14.5); WBC 12.45 X 10*3/uL (4.50-10.00)
--- NOTE | 2024-01-31 11:06 | P.DS ---
Providers Date of admission: 01/27/24 16:38 Expected date of discharge: 01/31/24 Attending physician: Dennis Flores MD Consults: 01/27/24 17:03 Consult Physician Routine Consulting Provider: Chava Carson Consult Reason/Comments: Urosepsis with chronic indwelling cath, follows w/ you in office. Do you want consulting provider notified?: Yes 01/27/24 18:33 Consult Physician Routine Consulting Provider: Lorraine Hutson Consult Reason/Comments: recurrent UTI's, currently with urosepsis w/ chronic pagan catheter Do you want consulting provider notified?: Yes Primary care physician: [facility] Course: Discharge Diagnosis: Citrobacter freundii and Aerococcus urinae UTI associated with chronic indwelling Pagan catheter. Patient received 4-day course of IV antibiotics with Zosyn, he was evaluated by urology and infectious disease. Patient being discharged home on oral antibiotics with Augmentin and Bactrim x 7 days. Patient to follow-up with PCP in 1 to 2 days and with urologist within the next week for reevaluation and further discussion/scheduling of cystoscopy with lithotripsy for nonobstructing renal stones. Sepsis upon arrival secondary to above Metabolic encephalopathy, secondary to above Bilateral nonobstructing renal calculi Bladder stones versus calcifications CKD stage III [address] face was completed, showing no evidence of dental abscess. Hypoglycemia -Likely secondary to decreased appetite/oral intake secondary to reports of dental pain throughout the night and morning. -Patient had no further episodes of hypoglycemia, will increase ixgge-od-tone glucose checks to every 6 hours. Constipation. Resolved. History of CVA with left-sided residual deficits. Continue aspirin 81 mg daily and pravastatin 40 mg nightly. Bilateral lower extremity peripheral neuropathy Hypertension. Continue daily medication regimen with amlodipine 5 mg daily, lisinopril 20 mg daily, hydralazine 50 mg twice daily, and labetalol 300 mg twice daily. Hyperlipidemia. Continue pravastatin 40 mg nightly. 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 He presented to the emergency department with a chief complaint of overall feeling "unwell" and development of fever. Upon arrival to our facility, patient underwent evaluation in the emergency department. Vital signs upon arrival show blood pressure 72/50, heart rate 59, respiratory rate 18, temp 98.7 F, and SpO2 of 95% on room air. EKG was completed showing sinus rhythm at 62 bpm with nonspecific T wave changes in inferior lateral leads and a prolonged QT/QTc of 478/483 ms upon personal review and interpretation. Chest x-ray completed negative for acute cardiopulmonary process. Labs completed and reviewed. CBC showing leukocytosis with WBC count of 16.0 and normocytic anemia with hemoglobin of 12.9. Coagulation profile normal findings. BMP sent with known CKD with BUN of 23, creatinine of 1.39, and GFR of 53 with baseline creatinine around 1.3. Blood glucose was 116. Lactic acid was 1.4. Magnesium normal findings at 2.2. Liver profile unremarkable. Troponin was 0.015. Urinalysis turbid appearance positive for protein, blood, nitrites, leukocyte esterase 40 RBCs, and greater than 182 WBCs. Is a, influenza B, RSV, and COVID PCR were negative. CT abdomen and pelvis without contrast completed showing decompressed urinary bladder with Pagan catheter in place along with bladder wall thickening and inflammatory changes suggestive of cystitis, bladder stones may also be present versus calcifications within the melton, bilateral nonobstructing renal calculi, cholelithiasis, and a large amount of stool burden throughout the distal colon and rectum. Urine culture and blood cultures were obtained. Patient started on broad-spectrum antibiotics with vancomycin and Zosyn and admitted under our services with consultation to urology and infectious disease. Urine culture was positive for Citrobacter freundii and Aerococcus urinae and antibiotics de- escalated to Zosyn only. Blood cultures showing no growth. Patient received 4- day course of IV antibiotics with Zosyn, he was evaluated by urology and infectious disease. Patient being discharged home on oral antibiotics with Augmentin and Bactrim x 7 days. Patient to follow-up with PCP in 1 to 2 days and with urologist within the next week for reevaluation and further discussion/scheduling of cystoscopy with lithotripsy for nonobstructing renal stones. Physical exam: Vital signs reviewed and stable. General: Nontoxic, no distress and appears stated age. Derm: Skin warm and dry, normal coloration for ethnicity. Head: Atraumatic, normocephalic and symmetric. Eyes: EOM's intact, no lid lag, and anicteric sclera Mouth: no lip lesions, mucus membranes moist Cardiovascular: regular rate and rhythm with normal S1S2, no murmur, positive posterior tibial pulses bilaterally, and cap refill < 2 seconds. Lungs: Respirations even, regular, and unlabored on room air. Lungs CTA bilaterally, no rhonchi, no rales, no wheezing, and no accessory muscle usage. Abdominal: soft, nontender to palpation, no guarding, no appreciable organomegaly Ext: Left-sided weakness secondary to previous CVA left upper extremity contracture, wheelchair dependent. No edema. Neuro: Speech clear, face symmetrical and CN II-XII grossly intact with no noted focal neuro deficits Psych: Alert and oriented to person place but slightly confused to time and situation.. Appropriate and pleasant affect. A total of 36 minutes of time were spent preparing this complex discharge summary. Pt was discharged on 01/31/2024 at 10:59 AM. Patient was seen independently by Nurse Practitioner. This document was prepared using [employer] dictation software. Please allow for errors in sheet pile driver operator while rare they do occur. I reviewed the documentation as provided by the JAEL above, who is the original author of this note. I agree with the documented assessment and plan, with the following changes: none Patient Condition at Discharge: Stable Plan - Discharge Summary Discharge Rx Participant: Yes New Discharge Prescriptions: New Amoxic-Pot Clav 875-125Mg [Augmentin 875-125] 1 tab PO BID 7 Days #14 tab Sulfamethox-Tmp 800-160Mg [Bactrim DS 800-160 mg] 1 tab PO Q12HR 7 Days #14 tab Continue lisinopriL [Zestril] 20 mg PO DAILY@0900 Tamsulosin [Flomax] 0.4 mg PO HS@2100 Venlafaxine HCl [Effexor] 37.5 mg PO BID@0900,2100 Pravastatin Sodium [Pravachol] 40 mg PO HS@2100 Calcium/Magnesium (Unknown) 1 tab PO DAILY@0900 Aloe Lax 1 tab PO BID@0900,2100 polyethylene glycoL 3350 [Miralax] 17 gm PO DAILY PRN PRN Reason: Constipation Acetaminophen [Tylenol] 325 mg PO Q4H PRN PRN Reason: Pain Or Fever > 100.5 Multivit-Mins/Iron/Folic/Lycop [Centrum Men's Tablet] 1 tab PO BID@09,2099 hydrALAZINE HCL [Apresoline] 50 mg PO BID@899,2099 Alendronate Sodium [Fosamax] 70 mg PO COBURN Cholecalciferol [Vitamin D3 (25 Mcg = 1000 Iu)] 25 mcg PO DAILY@0900 Aspirin 81 mg PO DAILY@0900 Labetalol HCl 300 mg PO BID@899,2099 amLODIPine [Norvasc] 5 mg PO DAILY@0900 Famotidine [Pepcid] 20 mg PO DAILY PRN PRN Reason: ACID REFLUX Discharge Medication List Pravastatin Sodium [Pravachol] 40 mg PO HS@209911/11/15 [History] Tamsulosin [Flomax] 0.4 mg PO HS@209911/11/15 [History] Venlafaxine HCl [Effexor] 37.5 mg PO BID@899,209911/11/15 [History] lisinopriL [Zestril] 20 mg PO DAILY@89911/11/15 [History] Alendronate Sodium [Fosamax] 70 mg PO COBURN 01/20/22 [History] hydrALAZINE HCL [Apresoline] 50 mg PO BID@899,209901/20/22 [History] Aloe Lax 1 tab PO BID@0900,209910/10/23 [History] Aspirin 81 mg PO DAILY@89910/10/23 [History] Calcium/Magnesium (Unknown) 1 tab PO DAILY@89910/10/23 [History] Cholecalciferol [Vitamin D3 (25 Mcg = 1000 Iu)] 25 mcg PO DAILY@89910/10/23 [History] Labetalol HCl 300 mg PO BID@0900,209910/10/23 [History] polyethylene glycoL 3350 [Miralax] 17 gm PO DAILY PRN 10/10/23 [History] Acetaminophen [Tylenol] 325 mg PO Q4H PRN 01/27/24 [History] Famotidine [Pepcid] 20 mg PO DAILY PRN 01/27/24 [History] Multivit-Mins/Iron/Folic/Lycop [Centrum Men's Tablet] 1 tab PO BID@0900,209901/27/24 [History] amLODIPine [Norvasc] 5 mg PO DAILY@0900 01/27/24 [History] Amoxic-Pot Clav 875-125Mg [Augmentin 875-125] 1 tab PO BID 7 Days #14 tab 01/31/24 [Rx] Sulfamethox-Tmp 800-160Mg [Bactrim DS 800-160 mg] 1 tab PO Q12HR 7 Days #14 tab 01/31/24 [Rx] Follow up Appointment(s)/Referral(s): Pillo Quintana DO [Primary Care Provider] - 02/06/24 2:40 pm Chava Carson MD [STAFF PHYSICIAN] - 02/12/24 9:40 am Patient Instructions/Handouts: Kidney Stones (DC), Catheter-associated Urinary Tract Infection (DC) Activity/Diet/Wound Care/Special Instructions: Activity: As tolerated. Diet: Heart healthy and carb consistent diet. Special Instructions: Take all of your medications as directed and remember to keep all of your doctor's appointments and follow-up as needed. Thank you for allowing us to participate in your care, it was truly a pleasure having you for our patient!!! Discharge Disposition: HOME WITH HOME HEALTH SERVICES
--- NOTE | 2024-01-31 11:31 | P.PN ---
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 He presented to the emergency department with a chief complaint of overall feeling "unwell" and development of fever. Upon arrival to our facility, patient underwent evaluation in the emergency department. Vital signs upon arrival show blood pressure 72/50, heart rate 59, respiratory rate 18, temp 98.7 F, and SpO2 of 95% on room air. EKG was completed showing sinus rhythm at 62 bpm with nonspecific T wave changes in inferior lateral leads and a prolonged QT/QTc of 478/483 ms upon personal review and interpretation. Chest x-ray completed negative for acute cardiopulmonary process. Labs completed and reviewed. CBC showing leukocytosis with WBC count of 16.0 and normocytic anemia with hemoglobin of 12.9. Coagulation profile normal findings. BMP sent with known CKD with BUN of 23, creatinine of 1.39, and GFR of 53 with baseline creatinine around 1.3. Blood g lucose was 116. Lactic acid was 1.4. Magnesium normal findings at 2.2. Liver profile unremarkable. Troponin was 0.015. Urinalysis turbid appearance positive for protein, blood, nitrites, leukocyte esterase 40 RBCs, and greater than 182 WBCs. Is a, influenza B, RSV, and COVID PCR were negative. CT abdomen and pelvis without contrast completed showing decompressed urinary bladder with Pagan catheter in place along with bladder wall thickening and inflammatory changes suggestive of cystitis, bladder stones may also be present versus calcifications within the melton, bilateral nonobstructing renal calculi, cholelithiasis, and a large amount of stool burden throughout the distal colon and rectum. Urine culture and blood cultures were obtained. Patient started on broad-spectrum antibiotics with vancomycin and Zosyn and admitted under our services with consultation to urology and infectious disease. Urine culture was positive for Citrobacter freundii and Aerococcus urinae and antibiotics de- escalated to Zosyn only. Blood cultures showing no growth. Physical exam: Patient seen and fully evaluated at bedside this morning. He was resting comfortably in bed and reports overall feeling better and hoping to go home today. Initially plan was for discharge, however pt's labs resulting showing an increase in WBCs and elevated CRP. Vital signs reviewed and stable. General: Nontoxic, no distress and appears stated age. Derm: Skin warm and dry, normal coloration for ethnicity. Head: Atraumatic, normocephalic and symmetric. Eyes: EOM's intact, no lid lag, and anicteric sclera Mouth: no lip lesions, mucus membranes moist Cardiovascular: regular rate and rhythm with normal S1S2, no murmur, positive posterior tibial pulses bilaterally, and cap refill < 2 seconds. Lungs: Respirations even, regular, and unlabored on room air. Lungs CTA bilaterally, no rhonchi, no rales, no wheezing, and no accessory muscle usage. Abdominal: soft, nontender to palpation, no guarding, no appreciable organomegaly. Pagan Catheter in place. Ext: Left-sided weakness secondary to previous CVA left upper extremity contracture, wheelchair dependent. No edema. Neuro: Speech clear, face symmetrical and GCS 15. Psych: Alert and oriented to person place but slightly confused to time and situation.. Appropriate and pleasant affect. Assessment and Plan of Care: Initial plan was for discharge today. However, discharge was cancelled at this time as pt's labs resulted showing increased WBCs of 12.45 and elevated CRP of 6.20. Discussed with Dr. Hutson and he recommended discharge be cancelled and requesting pagan catheter to be changed out again with repeat urinalysis to be obtained at that time. Discussed with RN. Citrobacter freundii and Aerococcus urinae UTI associated with chronic indwelling Pagan catheter Sepsis upon arrival secondary to above Metabolic encephalopathy, secondary to above Bilateral nonobstructing renal calculi Bladder stones versus calcifications CKD stage III -Patient received 2 L sepsis bolus resulting in resolution of hypotension. -Continue IV antibiotics with Zosyn 3.375 g every 8 hours. -Urine culture positive for Citrobacter freundii and Aerococcus urinae -Blood cultures showing no growth. -Urology consulted, Dr. Carson reports he is in agreement with current plan of care with continuation of IV antibiotics and recommend patient to follow-up outpatient in their office as he will likely need a cystoscopy with cystoscopy lithotripsy for nonobstructing renal stones. -Infectious disease following, discussed with Dr. Hutson recommending continuation of IV antibiotics, again changing out Pagan catheter and repeating urinalysis secondary to increasing WBCs and elevated CRP. Patient also with a low-grade temp overnight of 100.2 F. -Patient to remain on continuous telemetry monitoring with close monitoring of vital signs every 4 hours. -Continue Flomax 0.4 mg nightly Dental pain -CT face was completed, showing no evidence of dental abscess. -Continue symptomatic care and pain management, Tylenol 650 mg every 6 hours as needed for mild pain/fever, Eugene 5/325 mg tablets every 4 hours as needed for moderate pain, and morphine 4 mg IVP every 4 hours as needed for severe pain. -Continue Orajel as needed. Hypoglycemia -Likely secondary to decreased appetite/oral intake. -Continue [id number] glucose checks every 6 hours. Constipation, resolved. -Continue MiraLAX 17 g daily. History of CVA with left-sided residual deficits Bilateral lower extremity peripheral neuropathy -Patient is wheelchair-bound. -Activity order placed to turn pt every 2 hours and as needed. -Fall precautions to be maintained -Patient to be provided with safe and supportive care and assistance as needed. -Continue aspirin 81 mg daily and pravastatin 40 mg nightly. Hypertension -Now that blood pressures have stabilized, patient to continue amlodipine 5 mg daily, lisinopril 20 mg daily, hydralazine 50 mg twice daily with parameters to hold for systolic pressure less than 110, and labetalol 300 mg twice daily with parameters placed to hold for systolic pressure less than 110 and/or heart rate less than 60. -Continue close monitoring of vital signs every 8 hours. Hyperlipidemia -Continue pravastatin 40 mg nightly. Data and imaging reviewed: Morning labs reviewed. CBC showing worsening leukocytosis increasing to 12.45 and stable normocytic anemia with hemoglobin of 11.5. CRP elevated at 6.20. Vital signs reviewed. Blood pressure 110/74, heart rate 68, respiratory rate 16, temp 97.6 F, and SpO2 of 98% on room air.. CODE STATUS: Full code DVT prophylaxis: Lovenox Anticipated discharge date: Pending clinical course Anticipated discharge place: Return home with home care Patient was seen independently by Nurse Practitioner. This document was prepared using [employer] dictation software. Please allow for errors in optometric technologist while rare they do occur. I reviewed the documentation as provided by the JAEL above, who is the original author of this note. I agree with the documented assessment and plan, with the following changes: none. Objective - Vital Signs Vital signs: Vital Signs Temp 97.6 F 01/31/24 07:15 Pulse 68 01/31/24 07:15 Resp 16 01/31/24 07:15 BP 110/74 01/31/24 07:15 Pulse Ox 98 01/31/24 07:15 FiO2 Intake & Output 01/30/24 01/31/24 01/31/24 18:59 06:59 18:59 Intake Total 200 Balance 200 Intake: Intake, IV Titration 200 Amount Piperacillin-Tazobactam 3 200 .375 gm In Sodium Chloride 0.9% 100 ml @ 25 mls/hr IVPB [facility] Rx#: [id number] Other: Voiding Method Indwelling Catheter - Labs CBC & Chem 7: 01/31/24 04:09 01/30/24 02:35 Labs: Abnormal Lab Results - Last 24 Hours (Table) 01/30/24 01/30/24 01/30/24 Range/Units 02:35 02:35 20:54 RBC 3.87 L (4.40-5.60) X 10*6/uL Hgb 12.1 L (13.0-17.0) g/dL Hct 36.1 L (39.6-50.0) % Carbon Dioxide 19.1 L (21.6-31.8) mmol/L Anion Gap 13.90 H (4.00-12.00) mmol/L BUN/Creatinine Ratio 11.80 L (12.00-20.00) Ratio POC Glucose (mg/dL) 69 L (70-110) mg/dL Albumin 3.7 L (3.8-4.9) g/dL Albumin/Globulin Ratio 1.42 L (1.60-3.17) Ratio Urine Protein (Negative) Urine Ketones (Negative) Urine Blood (Negative) Urine Bilirubin (Negative) Urine RBC (0-5) /hpf Urine WBC (0-5) /hpf Urine WBC Clumps (None) /hpf Urine Bacteria (None) /hpf Urine Mucus (None) /hpf Urine Yeast (Budding) (None) /hpf 01/31/24 Range/Units 02:34 RBC (4.40-5.60) X 10*6/uL Hgb (13.0-17.0) g/dL Hct (39.6-50.0) % Carbon Dioxide (21.6-31.8) mmol/L Anion Gap (4.00-12.00) mmol/L BUN/Creatinine Ratio (12.00-20.00) Ratio POC Glucose (mg/dL) (70-110) mg/dL Albumin (3.8-4.9) g/dL Albumin/Globulin Ratio (1.60-3.17) Ratio Urine Protein 2+ H (Negative) Urine Ketones 2+ H (Negative) Urine Blood Moderate H (Negative) Urine Bilirubin 1+ H (Negative) Urine RBC 167 H (0-5) /hpf Urine WBC 156 H (0-5) /hpf Urine WBC Clumps Few H (None) /hpf Urine Bacteria Rare H (None) /hpf Urine Mucus Rare H (None) /hpf Urine Yeast (Budding) Occasional H (None) /hpf Microbiology - Last 24 Hours (Table) 01/27/24 14:20 Blood Culture - Preliminary Blood 01/27/24 14:24 Urine Culture - Final Urine,Voided Citrobacter freundii Aerococcus urinae
--- NOTE | 2024-01-31 12:28 | CT ---
EXAMINATION TYPE: CT renal stones wo con CT DLP: 734.1 mGycm, Automated exposure control for dose reduction was used. DATE OF EXAM: 01/31/2024 12:12 PM COMPARISON: CT abdomen pelvis 01/27/2024, 10/10/2023, CT urogram 05/24/2022 CLINICAL INDICATION:Male, 64 years old with history of r/o obstruction of renal stones.; r/o obstruct ing renal stones TECHNIQUE: Renal stone protocol CT of the abdomen and pelvis without IV or oral contrast. Lack of IV or oral contrast limits evaluation of solid and hollow organ viscera. Coronal and sagittal reformats were performed. FINDINGS: LOWER CHEST: RCA coronary calcifications. No pericardial effusion. New trace bilateral pleural effusi ons with calcified granulomas within the lung bases. Patchy bilateral lower lobe opacities which is n ew from prior exam. ABDOMEN LIVER: Unremarkable noncontrast appearance GALLBLADDER AND BILE DUCTS: Layering increased densities within the lumen consistent with gallstones are present. Gallbladder is contracted. There is suggested calcifications within the common bile duct . No biliary ductal dilatation. This is new from prior exam. PANCREAS: Unremarkable noncontrast appearance SPLEEN: Unremarkable noncontrast appearance ADRENAL GLANDS: Unremarkable noncontrast appearance. KIDNEYS AND URETERS: No evidence of hydronephrosis. Left renal 2.0 cm cyst. Right renal 2.8 cm cyst. Nonobstructive bilateral renal calculi redemonstrated. Largest within the right kidney measures 8 mm. Largest within the left kidney measures up to 4 mm. At least 2 nonobstructive catheter within both k idneys. No ureteral calculus associated. No perinephric stranding or fluid collections. PELVIS BLADDER: Nondistended with Mclean catheter in place. Layering calcification within the urinary bladder redemonstrated measuring up to 1.6 cm. Mild surrounding urinary bladder stranding. REPRODUCTIVE: Unremarkable. ABDOMEN & PELVIS STOMACH AND BOWEL: Stomach and duodenum are unremarkable. Sigmoid colonic diverticulosis without evid ence for acute diverticulitis. No focal bowel wall thickening and stranding inflammatory changes. No evidence of bowel obstruction. PERITONEUM: No evidence of pneumoperitoneum or free fluid. VASCULATURE: No evidence of aortic aneurysm. MUSCULOSKELETAL: No acute osseous abnormalities. Postsurgical changes from left total hip arthroplast y. Multilevel degenerative disease. LYMPH NODES: No gross evidence for lymphadenopathy. SOFT TISSUE/ABDOMINAL WALL: Small fat filled umbilical hernia. IMPRESSION: 1. No evidence for obstructive uropathy. Bilateral nonobstructing renal calculi redemonstrated. Urin jose bladder calculi remain demonstrated. 2. Cholelithiasis with a few calcifications within the common bile duct consistent with choledocholit hiasis. No biliary ductal dilatation to suggest obstruction. Consider further evaluation with ERCP as clinically indicated. 3. Development of trace bilateral pleural effusions with bilateral lower lobe patchy opacities concer giovanna for pneumonia. 4. Sigmoid diverticulosis without evidence for acute diverticulitis. [facility], , 01/31/2024 12:25 PM
[2024-01-31 12:53] LABS: Appearance,Urine Cloudy (Clear); Bacteria,Urine Rare /hpf; Bilirubin,Urine Negative (Negative); Blood,Urine Small (Negative); Calcium Oxalate Crystals,Urine Occasional /hpf; Color,Urine Yellow; Glucose,Urine (UA) Negative (Negative); Ketones,Urine 2+ (Negative); Leukocyte Esterase,Urine Large (Negative); Mucus,Urine Occasional /hpf; Nitrite,Urine Negative (Negative); PH, Urine 5.5 (5.0-8.0); Protein,Urine 1+ (Negative); RBC,Urine 6 /hpf (0-5); Specific Gravity,Urine 1.025 (1.001-1.035); Squamous Epithelial Cell,Urine 3 /hpf (0-4); Urobilinogen,Urine <2.0 mg/dL (<2.0); WBC,Urine 81 /hpf (0-5)
[2024-01-31 14:37] LABS: African American GFR (CKD) 80 (>60 ml/min/1.73 sqM); Anion Gap 6 mmol/L; Blood Urea Nitrogen 15 mg/dL (9-20); Calcium 8.8 mg/dL (8.4-10.2); Carbon Dioxide 25 mmol/L (22-30); Chloride 107 mmol/L (98-107); Glucose 107 mg/dL (74-99); Non-African American GFR(CKD) 69 (>60 ml/min/1.73 sqM); Potassium 3.3 mmol/L (3.5-5.1); Sodium 138 mmol/L (137-145)
[2024-01-31 20:57] LABS: Glucose,Whole Blood 84 mg/dL (70-110)
[2024-02-01 07:59] VITALS: BP 155/93; PULSE 64; RESP 20; TEMP 97.5
[2024-02-01 08:55] LABS: Basophils % (A) 0 %; Eosinophils # (A) 0.5 k/uL (0-0.7); Eosinophils % (A) 7 %; HCT 35.2 % (39.0-53.0); HGB 12.1 gm/dL (13.0-17.5); Lymphocytes # (A) 1.2 k/uL (1.0-4.8); Lymphocytes % (A) 15 %; MCH 30.9 pg (25.0-35.0); MCHC 34.4 g/dL (31.0-37.0); MCV 89.9 fL (80.0-100.0); Mean Platelet Volume 7.2; Monocytes # (A) 0.2 k/uL (0-1.0); Monocytes % (A) 3 %; Neutrophils # (A) 5.5 k/uL (1.3-7.7); Neutrophils % (A) 73 %; Platelet Count 198 k/uL (150-450); RBC 3.91 m/uL (4.30-5.90); RDW 13.6 % (11.5-15.5); WBC 7.5 k/uL (3.8-10.6)
[2024-02-01 09:10] LABS: African American GFR (CKD) >90 (>60 ml/min/1.73 sqM); Anion Gap 7 mmol/L; Blood Urea Nitrogen 11 mg/dL (9-20); Calcium 8.6 mg/dL (8.4-10.2); Carbon Dioxide 27 mmol/L (22-30); Chloride 108 mmol/L (98-107); Glucose 81 mg/dL (74-99); Magnesium 1.8 mg/dL (1.6-2.3); Non-African American GFR(CKD) 82 (>60 ml/min/1.73 sqM); Potassium 3.3 mmol/L (3.5-5.1); Sodium 142 mmol/L (137-145)
--- NOTE | 2024-02-01 09:14 | P.PN ---
Subjective Progress Note Date: 01/31/24 Principal diagnosis: Reason for follow-up is a catheter assisted intake infection and possible dental infection Patient is a 64-year-old male past medical history significant for hypertension hyperlipidemia CVA TIA asthma presenting to the hospital for evaluation of not feeling well, patient did have a chronic indwelling Mclean did have a fever CT abdominal pelvis with suspicious for cystitis and did have a positive UA concerning for catheter assisted UTI. On today's evaluation that is 01/31/2024, Patient did have a low-grade fever 100.2 last night however the patient is afebrile this morning patient denies having any chest pain shortness of breath or cough, the patient is currently on room air, patient denies any abdominal pain no diarrhea no nausea no vomiting. Patient white count is up to 12.45 creatinine is 1.1 CRP 6.2 0 repeat UA has been positive Objective - Vital Signs Vital signs: Vital Signs Temp 97.6 F 01/31/24 07:15 Pulse 68 01/31/24 07:15 Resp 16 01/31/24 07:15 BP 110/74 01/31/24 07:15 Pulse Ox 98 01/31/24 07:15 FiO2 Intake & Output 01/30/24 01/31/24 01/31/24 18:59 06:59 18:59 Intake Total 200 Balance 200 Intake: Intake, IV Titration 200 Amount Piperacillin-Tazobactam 3 200 .375 gm In Sodium Chloride 0.9% 100 ml @ 25 mls/hr IVPB Q8H [facility] Rx#: [id number] Other: Voiding Method Indwelling Catheter - Exam Elderly male lying in bed in no distress No tachypnea or use of accessory muscle respiration Unlabored breathing - Labs CBC & Chem 7: 02/01/24 08:45 02/01/24 08:45 Labs: Abnormal Lab Results - Last 24 Hours (Table) 01/30/24 01/30/24 01/31/24 Range/Units 02:35 20:54 02:34 WBC (4.50-10.00) X 10*3/uL RBC (4.40-5.60) X 10*6/uL Hgb (13.0-17.0) g/dL Hct (39.6-50.0) % MPV (9.5-12.2) FL Immature Gran # (0.00-0.04) X 10*3/uL Neutrophils # (1.80-7.70) X 10*3/uL Carbon Dioxide 19.1 L (21.6-31.8) mmol/L Anion Gap 13.90 H (4.00-12.00) mmol/L BUN/Creatinine Ratio 11.80 L (12.00-20.00) Ratio POC Glucose (mg/dL) 69 L (70-110) mg/dL C-Reactive Protein (0.00-0.80) mg/dL Albumin 3.7 L (3.8-4.9) g/dL Albumin/Globulin Ratio 1.42 L (1.60-3.17) Ratio Urine Protein 2+ H (Negative) Urine Ketones 2+ H (Negative) Urine Blood Moderate H (Negative) Urine Bilirubin 1+ H (Negative) Urine RBC 167 H (0-5) /hpf Urine WBC 156 H (0-5) /hpf Urine WBC Clumps Few H (None) /hpf Urine Bacteria Rare H (None) /hpf Urine Mucus Rare H (None) /hpf Urine Yeast (Budding) Occasional H (None) /hpf 01/31/24 01/31/24 Range/Units 04:09 04:09 WBC 12.45 H (4.50-10.00) X 10*3/uL RBC 3.85 L (4.40-5.60) X 10*6/uL Hgb 11.5 L (13.0-17.0) g/dL Hct 35.2 L (39.6-50.0) % MPV 9.4 L (9.5-12.2) FL Immature Gran # 0.07 H (0.00-0.04) X 10*3/uL Neutrophils # 10.10 H (1.80-7.70) X 10*3/uL Carbon Dioxide (21.6-31.8) mmol/L Anion Gap (4.00-12.00) mmol/L BUN/Creatinine Ratio (12.00-20.00) Ratio POC Glucose (mg/dL) (70-110) mg/dL C-Reactive Protein 6.20 H (0.00-0.80) mg/dL Albumin (3.8-4.9) g/dL Albumin/Globulin Ratio (1.60-3.17) Ratio Urine Protein (Negative) Urine Ketones (Negative) Urine Blood (Negative) Urine Bilirubin (Negative) Urine RBC (0-5) /hpf Urine WBC (0-5) /hpf Urine WBC Clumps (None) /hpf Urine Bacteria (None) /hpf Urine Mucus (None) /hpf Urine Yeast (Budding) (None) /hpf Microbiology - Last 24 Hours (Table) 01/27/24 14:20 Blood Culture - Preliminary Blood 01/27/24 14:24 Urine Culture - Final Urine,Voided Citrobacter freundii Aerococcus urinae Assessment and Plan (1) Catheter-associated urinary tract infection Current Visit: Yes Status: Acute Code(s): T83.511A - I/I REACT D/T INDWELLING URETHRAL CATHETER, INIT; N39.0 - URINARY TRACT INFECTION, SITE NOT SPECIFIED SNOMED Code(s): 828330545 (2) Leukocytosis Current Visit: No Status: Acute Code(s): D72.829 - ELEVATED WHITE BLOOD CELL COUNT, UNSPECIFIED SNOMED Code(s): 519924195 Plan: 1patient presents hospital with fever not feeling well in this patient who did have elevated white count of 16,000 on admission significantly positive UA l ikely related to catheter associated UTI likely from enteric gram-negative pathogen less likely a gram-positive pathogen 2-patient also complaining of left-sided jaw pain possible dental infection 3urine is growing Citrobacter with the resistant pathogen as well as Aerococcus 4-patient did have a low-grade fever last night elevated CRP and white count discussed with the CRINKLING MACHINE OPERATOR for admitting team we will change his Mclean catheter obtain UA from new Mclean also check a CT to make sure no evidence of any obstructive uropathy for now continue with Zosyn Dictation was produced using [employer] software. please excuse any grammatical, word or spelling errors. Time with Patient: Less than 30
[2024-02-01] MEDS ORDERED: Potassium Replacement Protocol 1 EACH MISC MISCELLANE PRN (09:51)
[2024-02-01] MEDS: POTASSIUM CHLORIDE ER 20 MEQ TAB.ER PO SCH (10:59)
--- NOTE | 2024-02-01 17:43 | P.PN ---
Subjective Progress Note Date: 02/01/24 Principal diagnosis: Reason for follow-up is a catheter assisted intake infection and possible dental infection Patient is a 64-year-old male past medical history significant for hypertension hyperlipidemia CVA TIA asthma presenting to the hospital for evaluation of not feeling well, patient did have a chronic indwelling Mclean did have a fever CT abdominal pelvis with suspicious for cystitis and did have a positive UA concerning for catheter assisted UTI. On today's evaluation that is 02/01/2024,the patient denies any fever or any chills, patient is breathing comfortably on room air, the patient denies chest pain shortness of breath and no significant cough, patient denies abdominal pain, no nausea vomiting or diarrhea. Patient is feeling better anxious to go home. Patient did have white count of 7.5, creatinine 0.97, urine is looking much better after change of his Mclean catheter Objective - Vital Signs Vital signs: Vital Signs Temp 97.5 F L 02/01/24 07:58 Pulse 64 02/01/24 07:58 Resp 20 02/01/24 07:58 BP 155/93 02/01/24 07:58 Pulse Ox 98 02/01/24 08:18 FiO2 Intake & Output 01/31/24 02/01/24 02/01/24 18:59 06:59 18:59 Output Total 1350 1250 Balance -1350 -1250 Output: Urine 1350 1250 Other: Voiding Method Indwelling Catheter - Exam Elderly male lying in bed in no distress No tachypnea or use of accessory muscle respiration Unlabored breathing - Labs CBC & Chem 7: 02/01/24 08:45 02/01/24 08:45 Labs: Abnormal Lab Results - Last 24 Hours (Table) 01/31/24 01/31/24 02/01/24 Range/Units 11:36 14:06 08:45 RBC 3.91 L (4.30-5.90) m/uL Hgb 12.1 L (13.0-17.5) gm/dL Hct 35.2 L (39.0-53.0) % Potassium 3.3 L (3.5-5.1) mmol/L Chloride (98-107) mmol/L Glucose 107 H (74-99) mg/dL Urine Protein 1+ H (Negative) Urine Ketones 2+ H (Negative) Urine Blood Small H (Negative) Ur Leukocyte Esterase Large H (Negative) Urine RBC 6 H (0-5) /hpf Urine WBC 81 H (0-5) /hpf Calcium Oxalate Crystal Occasional H (None) /hpf Urine Bacteria Rare H (None) /hpf Urine Mucus Occasional H (None) /hpf 02/01/24 Range/Units 08:45 RBC (4.30-5.90) m/uL Hgb (13.0-17.5) gm/dL Hct (39.0-53.0) % Potassium 3.3 L (3.5-5.1) mmol/L Chloride 108 H (98-107) mmol/L Glucose (74-99) mg/dL Urine Protein (Negative) Urine Ketones (Negative) Urine Blood (Negative) Ur Leukocyte Esterase (Negative) Urine RBC (0-5) /hpf Urine WBC (0-5) /hpf Calcium Oxalate Crystal (None) /hpf Urine Bacteria (None) /hpf Urine Mucus (None) /hpf Assessment and Plan (1) Catheter-associated urinary tract infection Status: Acute Code(s): T83.511A - I/I REACT D/T INDWELLING URETHRAL CATHETER, INIT; N39.0 - URINARY TRACT INFECTION, SITE NOT SPECIFIED SNOMED Code(s): 609927751 (2) Leukocytosis Status: Acute Code(s): D72.829 - ELEVATED WHITE BLOOD CELL COUNT, UNSPECIFIED SNOMED Code(s): 552445917 Plan: 1patient presents hospital with fever not feeling well in this patient who did have elevated white count of 16,000 on admission significantly positive UA likely related to catheter associated UTI likely from enteric gram-negative pathogen less likely a gram-positive pathogen 2-patient also complaining of left-sided jaw pain possible dental infection 3urine is growing Citrobacter with the resistant pathogen as well as Aerococcus 4-patient did have resolution of his fever white count has normalized her repeat urine looks better CBC did not show any evidence of obstructive uropathy patient insisted on going home we will advise Bactrim DS 1 daily along with Augmentin 1 twice daily for 7 days on discharge this was discussed with the WIRE BOUND BOX MACHINE OPERATOR for admitting team working on discharge Dictation was produced using [employer] software. please excuse any grammatical, word or spelling errors. Time with Patient: Less than 30
--- NOTE | 2024-02-01 17:55 | P.DS ---
Providers Date of admission: 01/27/24 16:38 Expected date of discharge: 02/01/24 Attending physician: Dennis Flores MD Consults: 01/27/24 17:03 Consult Physician Routine Consulting Provider: Chava Carson Consult Reason/Comments: Urosepsis with chronic indwelling cath, follows w/ you in office. Do you want consulting provider notified?: Yes 01/27/24 18:33 Consult Physician Routine Consulting Provider: Lorraine Hutson Consult Reason/Comments: recurrent UTI's, currently with urosepsis w/ chronic pagan catheter Do you want consulting provider notified?: Yes Primary care physician: [facility] Course: Discharge Diagnosis: Citrobacter freundii and Aerococcus urinae UTI associated with chronic indwelling Pagan catheter. Patient received 5-day course of IV antibiotics with Zosyn, he was evaluated by urology and infectious disease. Patient being discharged home on oral antibiotics with Augmentin and Bactrim x 7 days. Patient to follow-up with PCP in 1 to 2 days and with urologist within the next week for reevaluation and further discussion/scheduling of cystoscopy with lithotripsy for nonobstructing renal stones. Sepsis upon arrival secondary to above Metabolic encephalopathy, secondary to above Bilateral nonobstructing renal calculi Bladder stones versus calcifications CKD stage III Dental pain. [address] face was completed, showing no evidence of dental abscess. Hypoglycemia -Likely secondary to decreased appetite/oral intake secondary to reports of dental pain throughout the night and morning. -Patient had no further episodes of hypoglycemia, will increase isimj-if-fagg glucose checks to every 6 hours. Constipation. Resolved. History of CVA with left-sided residual deficits. Continue aspirin 81 mg daily and pravastatin 40 mg nightly. Bilateral lower extremity peripheral neuropathy Hypertension. Continue daily medication regimen with amlodipine 5 mg daily, lisinopril 20 mg daily, hydralazine 50 mg twice daily, and labetalol 300 mg twice daily. Hyperlipidemia. Continue pravastatin 40 mg nightly. 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 He presented to the emergency department with a chief complaint of overall feeling "unwell" and development of fever. Upon arrival to our facility, patient underwent evaluation in the emergency department. Vital signs upon arrival show blood pressure 72/50, heart rate 59, respiratory rate 18, temp 98.7 F, and SpO2 of 95% on room air. EKG was completed showing sinus rhythm at 62 bpm with nonspecific T wave changes in inferior lateral leads and a prolonged QT/QTc of 478/483 ms upon personal review and interpretation. Chest x-ray completed negative for acute cardiopulmonary process. Labs completed and reviewed. CBC showing leukocytosis with WBC count of 16.0 and normocytic anemia with hemoglobin of 12.9. Coagulation profile normal findings. BMP sent with known CKD with BUN of 23, creatinine of 1.39, and GFR of 53 with baseline creatinine around 1.3. Blood glucose was 116. Lactic acid was 1.4. Magnesium normal findings at 2.2. Liver profile unremarkable. Troponin was 0.015. Urinalysis turbid appearance positive for protein, blood, nitrites, leukocyte esterase 40 RBCs, and greater than 182 WBCs. Is a, influenza B, RSV, and COVID PCR were negative. CT abdomen and pelvis without contrast completed showing decompressed urinary bladder with Pagan catheter in place along with bladder wall thickening and inflammatory changes suggestive of cystitis, bladder stones may also be present versus calcifications within the melton, bilateral nonobstructing renal calculi, cholelithiasis, and a large amount of stool burden throughout the distal colon and rectum. Urine culture and blood cultures were obtained. Patient started on broad-spectrum antibiotics with vancomycin and Zosyn and admitted under our services with consultation to urology and infectious disease. Urine culture was positive for Citrobacter freundii and Aerococcus urinae and antibiotics de- escalated to Zosyn only. Blood cultures showing no growth. Patient received 5- day course of IV antibiotics with Zosyn, he was evaluated by urology and infectious disease. Patient being discharged home on oral antibiotics with Augmentin and Bactrim x 7 days. Patient to follow-up with PCP in 1 to 2 days and with urologist within the next week for reevaluation and further discussion/scheduling of cystoscopy with lithotripsy for nonobstructing renal stones. Physical exam: Vital signs reviewed and stable. General: Nontoxic, no distress and appears stated age. Derm: Skin warm and dry, normal coloration for ethnicity. Head: Atraumatic, normocephalic and symmetric. Eyes: EOM's intact, no lid lag, and anicteric sclera Mouth: no lip lesions, mucus membranes moist Cardiovascular: regular rate and rhythm with normal S1S2, no murmur, positive posterior tibial pulses bilaterally, and cap refill < 2 seconds. Lungs: Respirations even, regular, and unlabored on room air. Lungs CTA bilaterally, no rhonchi, no rales, no wheezing, and no accessory muscle usage. Abdominal: soft, nontender to palpation, no guarding, no appreciable organomegaly Ext: Left-sided weakness secondary to previous CVA left upper extremity contracture, wheelchair dependent. No edema. Neuro: Speech clear, face symmetrical and CN II-XII grossly intact with no noted focal neuro deficits Psych: Alert and oriented to person place but slightly confused to time and situation.. Appropriate and pleasant affect. A total of 35 minutes of time were spent preparing this complex discharge summary. Pt was discharged on 02/01/2024 at 9:56 AM. Patient was seen independently by Nurse Practitioner. This document was prepared using [employer] dictation software. Please allow for errors in forest fire warden while rare they do occur. I reviewed the documentation as provided by the JAEL above, who is the original author of this note. I agree with the documented assessment and plan, with the following changes: none Patient Condition at Discharge: Stable Plan - Discharge Summary Discharge Rx Participant: Yes New Discharge Prescriptions: New Amoxic-Pot Clav 875-125Mg [Augmentin 875-125] 1 tab PO BID 7 Days #14 tab Sulfamethox-Tmp 800-160Mg [Bactrim DS 800-160 mg] 1 tab PO Q12HR 7 Days #14 tab Continue lisinopriL [Zestril] 20 mg PO DAILY@0900 Tamsulosin [Flomax] 0.4 mg PO HS@2100 Venlafaxine HCl [Effexor] 37.5 mg PO BID@0900,2100 Pravastatin Sodium [Pravachol] 40 mg PO HS@2100 Calcium/Magnesium (Unknown) 1 tab PO DAILY@0900 Aloe Lax 1 tab PO BID@0900,2100 polyethylene glycoL 3350 [Miralax] 17 gm PO DAILY PRN PRN Reason: Constipation Acetaminophen [Tylenol] 325 mg PO Q4H PRN PRN Reason: Pain Or Fever > 100.5 Multivit-Mins/Iron/Folic/Lycop [Centrum Men's Tablet] 1 tab PO BID@09,2099 hydrALAZINE HCL [Apresoline] 50 mg PO BID@899,2099 Alendronate Sodium [Fosamax] 70 mg PO COBURN Cholecalciferol [Vitamin D3 (25 Mcg = 1000 Iu)] 25 mcg PO DAILY@0900 Aspirin 81 mg PO DAILY@0900 Labetalol HCl 300 mg PO BID@899,2099 amLODIPine [Norvasc] 5 mg PO DAILY@0900 Famotidine [Pepcid] 20 mg PO DAILY PRN PRN Reason: ACID REFLUX Discharge Medication List Pravastatin Sodium [Pravachol] 40 mg PO HS@209911/11/15 [History] Tamsulosin [Flomax] 0.4 mg PO HS@209911/11/15 [History] Venlafaxine HCl [Effexor] 37.5 mg PO BID@899,209911/11/15 [History] lisinopriL [Zestril] 20 mg PO DAILY@89911/11/15 [History] Alendronate Sodium [Fosamax] 70 mg PO COBURN 01/20/22 [History] hydrALAZINE HCL [Apresoline] 50 mg PO BID@899,209901/20/22 [History] Aloe Lax 1 tab PO BID@0900,209910/10/23 [History] Aspirin 81 mg PO DAILY@89910/10/23 [History] Calcium/Magnesium (Unknown) 1 tab PO DAILY@89910/10/23 [History] Cholecalciferol [Vitamin D3 (25 Mcg = 1000 Iu)] 25 mcg PO DAILY@89910/10/23 [History] Labetalol HCl 300 mg PO BID@0900,209910/10/23 [History] polyethylene glycoL 3350 [Miralax] 17 gm PO DAILY PRN 10/10/23 [History] Acetaminophen [Tylenol] 325 mg PO Q4H PRN 01/27/24 [History] Famotidine [Pepcid] 20 mg PO DAILY PRN 01/27/24 [History] Multivit-Mins/Iron/Folic/Lycop [Centrum Men's Tablet] 1 tab PO BID@0900,209901/27/24 [History] amLODIPine [Norvasc] 5 mg PO DAILY@0900 01/27/24 [History] Amoxic-Pot Clav 875-125Mg [Augmentin 875-125] 1 tab PO BID 7 Days #14 tab 01/31/24 [Rx] Sulfamethox-Tmp 800-160Mg [Bactrim DS 800-160 mg] 1 tab PO Q12HR 7 Days #14 tab 01/31/24 [Rx] Follow up Appointment(s)/Referral(s): Pillo Quintana DO [Primary Care Provider] - 02/06/24 2:40 pm Chava Carson MD [STAFF PHYSICIAN] - 02/12/24 9:40 am Patient Instructions/Handouts: Kidney Stones (DC), Catheter-associated Urinary Tract Infection (DC) Activity/Diet/Wound Care/Special Instructions: Activity: As tolerated. Diet: Heart healthy and carb consistent diet. Special Instructions: Take all of your medications as directed and remember to keep all of your doctor's appointments and follow-up as needed. Thank you for allowing us to participate in your care, it was truly a pleasure having you for our patient!!! Discharge Disposition: HOME WITH HOME HEALTH SERVICES
== END 2024-02-01 15:25 | disposition home health service (06) | DRG 698 ==
LOC: EC 13:37 → 4SSUR 16:38
PROVIDERS: ADMIT Internal Medicine; ATTEND Internal Medicine
DX: T83.511A Infection and inflammatory reaction due to indwelling urethral catheter, initial encounter (principal); A41.89 Other specified sepsis; G93.41 Metabolic encephalopathy; N30.00 Acute cystitis without hematuria; I69.354 Hemiplegia and hemiparesis following cerebral infarction affecting left non-dominant side; D63.1 Anemia in chronic kidney disease; N18.31 Chronic kidney disease, stage 3a; I12.9 Hypertensive chronic kidney disease with stage 1 through stage 4 chronic kidney disease, or unspecified chronic kidney disease; E78.5 Hyperlipidemia, unspecified; E16.2 Hypoglycemia, unspecified; K04.7 Periapical abscess without sinus; G62.9 Polyneuropathy, unspecified; N21.0 Calculus in bladder; K59.00 Constipation, unspecified; B96.89 Other specified bacterial agents as the cause of diseases classified elsewhere; R94.31 Abnormal electrocardiogram [ECG] [EKG]; R33.9 Retention of urine, unspecified; Y73.1 Therapeutic (nonsurgical) and rehabilitative gastroenterology and urology devices associated with adverse incidents; Y84.6 Urinary catheterization as the cause of abnormal reaction of the patient, or of later complication, without mention of misadventure at the time of the procedure; Z79.82 Long term (current) use of aspirin; Z79.83 Long term (current) use of bisphosphonates; Z99.3 Dependence on wheelchair; Z87.442 Personal history of urinary calculi; Z89.421 Acquired absence of other right toe(s); Z87.440 Personal history of urinary (tract) infections; Z79.899 Other long term (current) drug therapy; Z11.52 Encounter for screening for COVID-19
CPT/HCPCS: 36415; 70450; 70487; 71046; 74150; 74176; 80048; 80053; 80202; 81001; 83605; 83735; 84484; 85025; 85027; 85610; 85730; 86140; 87040; 87077; 87086; 87186; 87636; 93005; 94760; 96361; 96365; 96366; 99291

== ENCOUNTER → 2024-02-28 | Day surgery (SDC) | payer MEDICARE, BC ==
--- NOTE | 2024-02-27 14:37 | P.GSHP ---
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 He is wheelchair bound, He had another febrile uti. A ct scan identified sevreal smaller bladder stones. He comes for lithotripsy and evacuation of these stones,. - Constitutional Constitutional: Denies chills, Denies fever - EENT Eyes: denies blurred vision, denies pain Ears, nose, mouth and throat: Denies headache, Denies sore throat - Cardiovascular Cardiovascular: Denies chest pain, Denies shortness of breath - Respiratory Respiratory: Denies cough, Denies 7 - Gastrointestinal Gastrointestinal: Denies abdominal pain, Denies diarrhea, Denies nausea, Denies vomiting - Genitourinary (Female) Genitourinary: Denies dysuria, Denies hematuria - Genitourinary (Male) Genitourinary: Denies dysuria, Denies hematuria - Musculoskeletal Musculoskeletal: Denies myalgias - Integumentary Integumentary: Denies pruritus, Denies rash - Neurological Neurological: Denies numbness, Denies weakness - Psychiatric Psychiatric: Denies anxiety, Denies depression - Endocrine Endocrine: Denies fatigue, Denies weight change Past Medical History Past Medical History: Asthma, CVA/TIA, Hyperlipidemia, Hypertension Additional Past Medical History / Comment(s): peripheral neroupathy marko LE, retinoneuropathy, urine retention, residual to the lt. side, no recent issues with asthma, uses wheelchair requires transfer assistance. History of Any Multi-Drug Resistant Organisms: None Reported Past Surgical History: Orthopedic Surgery, Tonsillectomy Additional Past Surgical History / Comment(s): toes amputated right foot after traumatic injury, cyctoscopy, Left hip surgery. Past Anesthesia/Blood Transfusion Reactions: No Reported Reaction Past Psychological History: No Psychological Hx Reported Smoking Status: Never smoker - Past Family History Father Family Medical History: Cancer Additional Family Medical History / Comment(s): Father at age 41 from leukemia. Mother Family Medical History: CVA/TIA, Diabetes Mellitus, Hypertension Additional Family Medical History / Comment(s): Mother in her 70s from pneumonia. Sister(s) Additional Family Medical History / Comment(s): Patient has 2 sisters with no major medical problems. Patient does not have any brothers, no children. Medications and Allergies Home Medications Medication Instructions Recorded Confirmed Type Pravastatin Sodium [Pravachol] 40 mg PO HS@209911/11/15 01/27/24 History Tamsulosin [Flomax] 0.4 mg PO HS@209911/11/15 01/27/24 History Venlafaxine HCl [Effexor] 37.5 mg PO BID@0900,209911/11/15 01/27/24 History lisinopriL [Zestril] 20 mg PO DAILY@89911/11/15 01/27/24 History Alendronate Sodium [Fosamax] 70 mg PO COBURN 01/20/22 01/27/24 History hydrALAZINE HCL [Apresoline] 50 mg PO BID@0900,209901/20/22 01/27/24 History Aloe Lax 1 tab PO BID@0900,209910/10/23 01/27/24 History Aspirin 81 mg PO DAILY@0910/10/23 01/27/24 History Calcium/Magnesium (Unknown) 1 tab PO DAILY@0910/10/23 01/27/24 History Cholecalciferol [Vitamin D3 (25 25 mcg PO DAILY@0900 10/10/23 01/27/24 History Mcg = 1000 Iu)] Labetalol HCl 300 mg PO BID@0900,209910/10/23 01/27/24 History polyethylene glycoL 3350 [Miralax] 17 gm PO DAILY PRN 10/10/23 01/27/24 History Acetaminophen [Tylenol] 325 mg PO Q4H PRN 01/27/24 01/27/24 History Famotidine [Pepcid] 20 mg PO DAILY PRN 01/27/24 01/27/24 History Multivit-Mins/Iron/Folic/Lycop 1 tab PO BID@0900,209901/27/24 01/27/24 History [Centrum Men's Tablet] amLODIPine [Norvasc] 5 mg PO DAILY@0901/27/24 01/27/24 History Amoxic-Pot Clav 875-125Mg 1 tab PO BID 7 Days #14 tab 01/31/24 Rx [Augmentin 875-125] Sulfamethox-Tmp 800-160Mg [Bactrim 1 tab PO Q12HR 7 Days #14 tab 01/31/24 Rx DS 800-160 mg] Allergies Allergy/AdvReac Type Severity Reaction Status Date / Time cashew nut Allergy Anaphylaxis Verified 01/27/24 14:42 shellfish derived [Shellfish] Allergy Anaphylaxis Verified 01/27/24 14:42 Surgical - Exam - General well developed, well nourished, no distress - Eyes normal ocular movement, no icteric - ENT no hearing loss, no congestion - Neck no masses, trachea midline - Respiratory normal respiratory effort, clear to auscultation - Abdomen Abdomen: soft, non tender, no guarding, no rigid, no rebound - Genitourinary indwelling catheter. - Integumentary no rash, no abnormal pigmentation - Neurologic no disoriented, no combative - Musculoskeletal wheel chair bound - Psychiatric oriented to time, oriented to person, oriented to place, speech is normal, memory intact Assessment and Plan Assessment: impression: s/p cva with urine retention. Bladder calculi. Plan: cysto with cystolithotripsy and bladder stone evacuation
[~2024-02-28] MED LIST: HYDROmorphone 0.5 MG/0.5 ML SYRINGE IVP PRN; LIDOCAINE 1% INJ 10MG/ML (20 ML MDV) ONE; MIDAZOLAM 2 MG/2 ML VIAL ONE; PROPOFOL 10 MG/ML 20 ML VIAL IV ONE; droPERidol 5 MG/2 ML VIAL IVP ONE; fentaNYL (PF) 50 MCG/ML 2 ML AMP ONE
[2024-02-28] MEDS: IV FLUID CONTINUATION 1,000 ML IV ONE (09:05)
[2024-02-28] MEDS: LIDOCAINE 1% (10MG/ML) FOR IV START INTRADERMA PRN (09:05)
[2024-02-28] MEDS: LACTATED RINGERS 1,000 ML IV SCH (09:05)
[2024-02-28] MEDS: ONDANSETRON 4 MG/2 ML VIAL IVP ONE (09:13)
[2024-02-28] MEDS: DEXAMETHASONE SOD PHOSPHATE 4 MG/ML 1 ML VIAL IV ONE (09:13)
[2024-02-28] MEDS: AMPICILLIN 1,000 MG in SODIUM CHLORIDE 0.9% 50 ML IVPB PRN (09:19)
[2024-02-28] MEDS: GENTAMICIN 130 MG in SODIUM CHLORIDE 0.9% 100 ML IVPB PRN (09:19)
--- NOTE | 2024-02-28 09:50 | P.OP ---
Date of Procedure: 02/28/24 Preoperative Diagnosis: neurogenic bladder, bladder stones Postoperative Diagnosis: same Procedure(s) Performed: cystoscopy with evacuation of bladder stones Anesthesia: YOJANA Surgeon: Chava Carson Estimated Blood Loss (ml): 0 Pathology: other (stone) Condition: stable Disposition: PACU Indications for Procedure: the patient is 64. He has a neurogenic bladder due to a previous stroke. 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 He is wheelchair bound. He recently was in the hospital with urine infection. A CAT scan showed bladder stones. His infection has been treated he now comes for cystoscopy lithotripsy and evacuation of stone Description of Procedure: patient brought to the operating suite. He is given a general anesthetic. He's placed lithotomy position with a sterile prep and drape. Cystoscopy a Foroblique lens and 21-Japanese sheath identifies a normal urethra. The prostate is not obstructing. Upon entering the bladder there are multiple small black- appearing stones. They irrigated out of the bladder. Then of the stones are greater than 5 or 6 mm a. I irrigate thoroughly and obtained probably 20-30 small stones. Then of the procedure the no remaining stones in the bladder. The cystoscope removed. A 16-Japanese Mclean catheter introduced the bladder the patient is awakened and returned recovery in good condition. He tolerated procedure well be discharged back to his extended care facility
[2024-02-28 09:54] VITALS: TEMP 96.9
[2024-02-28 10:20] VITALS: RESP 16
[2024-02-28 10:58] VITALS: BP 122/75; PULSE 67
== END ==
LOC: OR 07:45
PROVIDERS: ATTEND Urology
DX: N21.0 Calculus in bladder (principal); N31.9 Neuromuscular dysfunction of bladder, unspecified; E78.5 Hyperlipidemia, unspecified; I10 Essential (primary) hypertension; J45.909 Unspecified asthma, uncomplicated; Z86.73 Personal history of transient ischemic attack (TIA), and cerebral infarction without residual deficits; Z90.89 Acquired absence of other organs; Z99.3 Dependence on wheelchair; Z87.440 Personal history of urinary (tract) infections; Z79.899 Other long term (current) drug therapy
CPT/HCPCS: 52317; 82365; 74018; J2250; J1100; J2405; J2003; J3010; J1580; J0290; J2704

== ENCOUNTER 2024-09-19 20:05 | Inpatient (IN) | payer MEDICARE, BC ==
--- NOTE | 2024-09-19 21:01 | ED ---
General Adult HPI - General Chief complaint: Fever Stated complaint: Fever/Possible Dehyration Time Seen by Provider: 09/19/24 20:11 Source: patient, RN notes reviewed, Caregiver Mode of arrival: wheelchair Limitations: no limitations - History of Present Illness Initial comments: This is a 64-year-old male with history including wheelchair dependency, CVA, urosepsis and chronic indwelling catheter presenting with caregiver for fever and dark urine x 2 days. Caregiver states patient has been "more mopey" than usual with decreased appetite and diarrhea. States patient is otherwise cognitively unchanged, denying dysuria or hematuria. Caregiver states patient does not usually have urinary symptoms with past UTIs. Denies chest pain, dyspnea, abdominal pain, N/V, dizziness. Onset/Timin -: days(s) Associated Symptoms: loss of appetite, malaise - Related Data Home Medications Medication Instructions Recorded Confirmed Pravastatin Sodium [Pravachol] 40 mg PO HS@209911/11/15 02/27/24 Tamsulosin [Flomax] 0.4 mg PO HS@209911/11/15 02/27/24 Venlafaxine HCl [Effexor] 37.5 mg PO BID@0900,209911/11/15 02/27/24 lisinopriL [Zestril] 20 mg PO DAILY@89911/11/15 02/27/24 Alendronate Sodium [Fosamax] 70 mg PO COBURN 01/20/22 02/27/24 hydrALAZINE HCL [Apresoline] 50 mg PO BID@0900,209901/20/22 02/27/24 Aloe Lax 1 tab PO BID@0900,209910/10/23 02/27/24 Aspirin 81 mg PO DAILY@89910/10/23 02/27/24 Calcium/Magnesium (Unknown) 1 tab PO DAILY@00 10/10/23 01/27/24 Cholecalciferol [Vitamin D3 (25 25 mcg PO DAILY@89910/10/23 02/27/24 Mcg = 1000 Iu)] Labetalol HCl 300 mg PO BID@0900,209910/10/23 02/27/24 polyethylene glycoL 3350 [Miralax] 17 gm PO DAILY PRN 10/10/23 02/27/24 Famotidine [Pepcid] 20 mg PO DAILY PRN 01/27/24 02/27/24 Multivit-Mins/Iron/Folic/Lycop 1 tab PO BID@0900,2100 01/27/24 02/27/24 [Centrum Men's Tablet] amLODIPine [Norvasc] 5 mg PO DAILY@0900 01/27/24 02/27/24 Allergies Allergy/AdvReac Type Severity Reaction Status Date / Time cashew nut Allergy Anaphylaxis Verified 02/28/24 08:47 shellfish derived [Shellfish] Allergy Anaphylaxis Verified 02/28/24 08:47 Review of Systems ROS Statement: Those systems with pertinent positive or pertinent negative responses have been documented in the HPI. ROS Other: All systems not noted in ROS Statement are negative. Past Medical History Past Medical History: Asthma, CVA/TIA, Hyperlipidemia, Hypertension Additional Past Medical History / Comment(s): peripheral neuropathy marko LE, retinoneuropathy, urine retention, chronic indwelling catheter, CVA w/residual weakness to the lt. side, no recent issues with asthma-no inhalers, uses electric wheelchair requires transfer assistance which caregiver will do, kidney stones, [facility], no current skin breakdown History of Any Multi-Drug Resistant Organisms: None Reported Past Surgical History: Orthopedic Surgery, Tonsillectomy Additional Past Surgical History / Comment(s): toes amputated right foot after traumatic injury, cystoscopy, Left hip surgery. Past Anesthesia/Blood Transfusion Reactions: Postoperative Nausea & Vomiting (PONV) Additional Past Anesthesia/Blood Transfusion Reaction / Comment(s): occasional dizziness & nausea from anesthesia Past Psychological History: No Psychological Hx Reported Smoking Status: Never smoker - Past Family History Father Family Medical History: Cancer Additional Family Medical History / Comment(s): Father at age 41 from leukemia. Mother Family Medical History: CVA/TIA, Diabetes Mellitus, Hypertension Additional Family Medical History / Comment(s): Mother in her 70s from pneumonia. Sister(s) Additional Family Medical History / Comment(s): Patient has 2 sisters with no major medical problems. Patient does not have any brothers, no children. General Exam Limitations: no limitations, physical limitation General appearance: alert, in no apparent distress Head exam: Present: atraumatic, normocephalic, normal inspection Eye exam: Present: normal appearance, PERRL, EOMI. Absent: scleral icterus, conjunctival injection, periorbital swelling ENT exam: Present: normal exam, mucous membranes moist Neck exam: Present: normal inspection. Absent: tenderness, meningismus, lymphadenopathy Respiratory exam: Present: normal lung sounds bilaterally. Absent: respiratory distress, wheezes, rales, rhonchi, stridor, accessory muscle use, decreased breath sounds, prolonged expiratory Cardiovascular Exam: Present: regular rate, normal rhythm, normal heart sounds. Absent: systolic murmur, diastolic murmur, rubs, gallop, clicks GI/Abdominal exam: Present: soft, normal bowel sounds. Absent: distended, tenderness, guarding, rebound, rigid exam: Present: other (Mclean catheter patent, producing yellow urine without obvious hematuria) Extremities exam: Present: normal inspection, full ROM, normal capillary refill. Absent: tenderness, pedal edema, joint swelling, calf tenderness Back exam: Present: normal inspection. Absent: CVA tenderness (R), CVA tenderness (L) Neurological exam: Present: alert, oriented X3, CN II-XII intact Psychiatric exam: Present: depressed, flat affect Skin exam: Present: warm, dry, intact, normal color. Absent: rash Course Vital Signs 09/19/24 09/19/24 09/19/24 20:29 20:58 23:32 Temperature 101.1 F H 101.6 F H 99.4 F Pulse Rate 96 66 74 Respiratory 18 20 18 Rate Blood Pressure 136/70 114/57 114/69 O2 Sat by Pulse 97 95 97 Oximetry Medical Decision Making - Medical Decision Making Was pt. sent in by a medical professional or institution (, PA, BARROW WORKER, urgent care, hospital, or snf...) When possible be specific @ -No Did you speak to anyone other than the patient for history (EMS, parent, family, police, friend...)? What history was obtained from this source @ -Caregiver provided entirety of HPI Did you review nursing and triage notes (agree or disagree)? Why? @ -I reviewed and agree with nursing and triage notes Were old charts reviewed (outside hosp., previous admission, EMS record, old EKG, old radiological studies, urgent care reports/EKG's, snf records)? Report findings @ -No old charts were reviewed Differential Diagnosis (chest pain, altered mental status, abdominal pain women, abdominal pain men, vaginal bleeding, weakness, fever, dyspnea, syncope, headache, dizziness, GI bleed, back pain, seizure, CVA, palpatations, mental health, musculoskeletal)? @ -Differential Fever: Pneumonia, viral URI, endocarditis, myocarditis, pericarditis, otitis, sinusitis, peritonsillar Abscess, retropharyngeal Abscess, epiglottitis, peritonitis, appendicitis, Ladan cystitis, diverticulitis, hepatitis, colitis, UTI, PID, TOA, pyelonephritis, prostatitis, epididymitis, meningitis, encep halitis, pulmonary embolism, CVA, thyroid storm, pancreatitis, adrenal crisis, cavernous sinus thrombosis, this is not meant to be an all-inclusive list. EKG interpreted by me (3pts min.). @ -Not done X-rays interpreted by me (1pt min.). @ -None done CT interpreted by me (1pt min.). @ -None done U/S interpreted by me (1pt. min.). @ -None done What testing was considered but not performed or refused? (CT, X-rays, U/S, labs)? Why? @ -None What meds were considered but not given or refused? Why? @ -None Did you discuss the management of the patient with other professionals (professionals i.e. , PA, BARROW WORKER, lab, RT, psych nurse, social work faculty member, community product specialist, teacher, training and development officer, rn case management)? Give summary @ -Spoke to Dr. Rodriguez from [facility] for hobs admission for patient. Was smoking cessation discussed for >3mins.? @ -No Was critical care preformed (if so, how long)? @ -No Were there social determinants of health that impacted care today? How? (Homelessness, low income, unemployed, alcoholism, drug addiction, transportation, low edu. Level, literacy, decrease access to med. care, intermediate, rehab)? @ -No Was there de-escalation of care discussed even if they declined (Discuss DNR or withdrawal of care, Hospice)? DNR status @ -No What co-morbidities impacted this encounter? (DM, HTN, Smoking, COPD, CAD, Cancer, CVA, ARF, Chemo, Hep., AIDS, mental health diagnosis, sleep apnea, morbid obesity)? @ -Chronic Mclean Was patient admitted / discharged? Hospital course, mention meds given and route, prescriptions, significant lab abnormalities, going to OR and other pert inent info. @ -Patient initially provided IV normal saline and p.o. Tylenol/Motrin. Lab w ork positive for WBC 12.27 with left shift and stable CKD. UA positive for pyuria. Patient is also febrile (101.1F) meeting SIRS and sepsis criteria. Patient started on IV LR and IVPB Rocephin. Spoke to Dr. Rodriguez from [facility] for hobs admission for patient. Discussed patient with Dr. Barraza. Undiagnosed new problem with uncertain prognosis? @ -No Drug Therapy requiring intensive monitoring for toxicity (Heparin, Nitro, Insulin, Cardizem)? @ -No Were any procedures done? @ -No Diagnosis/symptom? @ -Urosepsis Acute, or Chronic, or Acute on Chronic? @ -Acute Uncomplicated (without systemic symptoms) or Complicated (systemic symptoms)? @ -Complicated Side effects of treatment? @ -No Exacerbation, Progression, or Severe Exacerbation? @ -No Poses a threat to life or bodily function? How? (Chest pain, USA, DC, pneumonia, PE, COPD, DKA, ARF, appy, cholecystitis, CVA, Diverticulitis, Homicidal, Suicidal, threat to staff... and all critical care pts) @ -Sepsis, possibility of endorgan damage - Lab Data Result diagrams: 09/19/24 21:29 09/19/24 21:29 Lab Results 09/19/24 09/19/24 09/19/24 Range/Units 21:29 21:29 22:45 WBC 12.27 H (4.50-10.00) 10*3/uL RBC 4.36 L (4.40-5.60) 10*6/uL Hgb 13.3 (13.0-17.0) g/dL Hct 39.6 (39.6-50.0) % MCV 90.8 (80.0-97.0) fL MCH 30.5 (27.0-32.0) pg MCHC 33.6 (32.0-37.0) g/dL Plt Count 181 (140-440) 10*3/uL MPV 8.8 L (9.5-12.2) fL Immature Gran % (Auto) 0.5 % Neutrophils % 82.5 % Lymphocytes % 7.8 % Monocytes % 8.9 % Eosinophils % 0.1 % Basophils % 0.2 % Immature Gran # 0.06 H (0.00-0.04) 10*3/uL Neutrophils # 10.12 H (1.80-7.70) 10*3/uL Lymphocytes # 0.96 (0.90-5.00) 10*3/uL Monocytes # 1.09 H (0.20-1.00) 10*3/uL Eosinophils # 0.01 L (0.04-0.35) 10*3/uL Basophils # 0.03 (0.00-0.10) 10*3/uL Sodium 136 L (137-145) mmol/L Potassium 4.2 (3.5-5.1) mmol/L Chloride 100 (98-107) mmol/L Carbon Dioxide 24 (22-30) mmol/L Anion Gap 12 mmol/L BUN 25 H (9-20) mg/dL Creatinine 1.44 H (0.66-1.25) mg/dL Est GFR (CKD-EPI)AfAm 58 (>60 ml/min/1.73 sqM) Est GFR (CKD-EPI)NonAf 50 (>60 ml/min/1.73 sqM) Glucose 81 (74-99) mg/dL Calcium 9.2 (8.4-10.2) mg/dL Total Bilirubin 1.3 (0.2-1.3) mg/dL AST 35 (17-59) U/L ALT 25 (4-49) U/L Alkaline Phosphatase 76 (38-126) U/L Total Protein 7.7 (6.3-8.2) g/dL Albumin 4.3 (3.5-5.0) g/dL Urine Color Yellow Urine Appearance Cloudy (Clear) Urine pH 6.0 (5.0-8.0) Ur Specific [place] 1.019 (1.001-1.035) Urine Protein 1+ H (Negative) Urine Glucose (UA) Negative (Negative) Urine Ketones 1+ H (Negative) Urine Blood Small H (Negative) Urine Nitrite Negative (Negative) Urine Bilirubin Negative (Negative) Urine Urobilinogen <2.0 (<2.0) mg/dL Ur Leukocyte Esterase Large H (Negative) Urine RBC 6 H (0-5) /hpf Urine WBC >182 H (0-5) /hpf Urine WBC Clumps Many H (None) /hpf Ur Squamous Epith Cells 2 (0-4) /hpf Urine Bacteria Many H (None) /hpf Urine Mucus Rare H (None) /hpf Disposition Clinical Impression: Sepsis secondary to UTI Disposition: ADMITTED IP TO THIS HOSP Condition: Fair Referrals: Pillo Quintana DO [Primary Care Provider] - 1-2 days Time of Disposition: 23:19 Decision Date: 09/19/24 Decision Time: 23:19
[2024-09-19 21:34] LABS: Basophils # (A) 0.03 10*3/uL (0.00-0.10); Basophils % (A) 0.2 %; Eosinophils # (A) 0.01 10*3/uL (0.04-0.35); Eosinophils % (A) 0.1 %; HCT 39.6 % (39.6-50.0); HGB 13.3 g/dL (13.0-17.0); Lymphocytes # (A) 0.96 10*3/uL (0.90-5.00); Lymphocytes % (A) 7.8 %; MCH 30.5 pg (27.0-32.0); MCHC 33.6 g/dL (32.0-37.0); MCV 90.8 fL (80.0-97.0); Mean Platelet Volume 8.8 fL (9.5-12.2); Monocytes # (A) 1.09 10*3/uL (0.20-1.00); Monocytes % (A) 8.9 %; Neutrophils # (A) 10.12 10*3/uL (1.80-7.70); Neutrophils % (A) 82.5 %; Platelet Count 181 10*3/uL (140-440); RBC 4.36 10*6/uL (4.40-5.60); RDW 13.5 % (11.5-14.5); WBC 12.27 10*3/uL (4.50-10.00)
[2024-09-19 22:10] LABS: ALT 25 U/L (4-49); AST 35 U/L (17-59); African American GFR (CKD) 58 (>60 ml/min/1.73 sqM); Albumin 4.3 g/dL (3.5-5.0); Alkaline Phosphatase 76 U/L (38-126); Anion Gap 12 mmol/L; Blood Urea Nitrogen 25 mg/dL (9-20); Calcium 9.2 mg/dL (8.4-10.2); Carbon Dioxide 24 mmol/L (22-30); Chloride 100 mmol/L (98-107); Glucose 81 mg/dL (74-99); Non-African American GFR(CKD) 50 (>60 ml/min/1.73 sqM); Potassium 4.2 mmol/L (3.5-5.1); Sodium 136 mmol/L (137-145); Total Bilirubin 1.3 mg/dL (0.2-1.3); Total Protein 7.7 g/dL (6.3-8.2)
[2024-09-19] MEDS: ACETAMINOPHEN TAB 500 MG TAB PO STA (22:13)
[2024-09-19] MEDS: IBUPROFEN 800 MG TAB PO STA (22:13)
[2024-09-19] MEDS: SODIUM CHLORIDE 0.9% 1,000 ML IV STA (22:14)
[2024-09-19 23:00] LABS: Appearance,Urine Cloudy (Clear); Bacteria,Urine Many /hpf; Bilirubin,Urine Negative (Negative); Blood,Urine Small (Negative); Color,Urine Yellow; Glucose,Urine (UA) Negative (Negative); Ketones,Urine 1+ (Negative); Leukocyte Esterase,Urine Large (Negative); Mucus,Urine Rare /hpf; Nitrite,Urine Negative (Negative); Protein,Urine 1+ (Negative); RBC,Urine 6 /hpf (0-5); Specific Gravity,Urine 1.019 (1.001-1.035); Squamous Epithelial Cell,Urine 2 /hpf (0-4); Urobilinogen,Urine <2.0 mg/dL (<2.0); WBC,Urine >182 /hpf (0-5)
[2024-09-20] MEDS: LACTATED RINGERS 1,000 ML IV ONE (00:01)
[2024-09-20] MEDS: LACTATED RINGERS 1,000 ML IV SCH ×2 (00:03→02:20)
[2024-09-20] MEDS ORDERED: NALOXONE 0.4 MG/ML 1 ML VIAL IV PRN (00:03)
[2024-09-20] MEDS: SODIUM CHLORIDE 0.9% 1,000 ML IV STA (00:48)
--- NOTE | 2024-09-20 01:04 | P.HPIM ---
History of Present Illness H&P Date: 09/19/24 History of present illness; 64-year-old man with PMH of CVA with left-sided deficits wheelchair-bound, hypertension, hyperlipidemia, bilateral lower extremity peripheral neuropathy, history of renal calculi, CKD stage IIIa, chronic indwelling Mclean catheter for urinary retention, history of urosepsis and asthma who presents to the emergency department with his caregiver who noted a fever and dark urine for the past 2 days. He states that he has "not been feeling well" with decreased appetite, fe deanne, nausea and diarrhea. He states that when he has had previous UTIs, he has noted changes in his urine color and has occasionally had suprapubic tenderness. He denies any chest pain, shortness of breath, cough. He reports that his indwelling catheter was most recently changed on a Monday of this week when he followed up with Dr. Carson. Labratory review: - WBCs 12.27, hemoglobin 13.3, hematocrit 39.6, platelet 181; sodium 136, potassium 4.2, bicarb 24, BUN 25, creatinine 1.44, calcium 9.2, total bilirubin 1.3, AST 235, ALT 25, alkaline phosphatase 76 - Urinalysis 1+ protein, 1+ blood, large amount of leukocyte esterase, > 182 WBCs, many urine bacteria Imaging: -Chest x-ray done in the ER -CT head done showed no acute intracranial process -CTA head and neck done showed no significant stenosis, aneurysm or thrombus in the intracranial circulation -EKG done in the ER showed heart rate of , no ST segment elevation or depression seen, no T-wave inversions seen. Vitals: - On arrival: Temperature 101.1 F, blood pressure 136/70, heart rate 96, respiratory rate 18, SpO2 97% on room air - Most recently: Temperature 99.4 F, blood pressure 114/69, heart rate 74, respiratory 18, SpO2 97% on room air Patient admitted to internal medicine service REVIEW OF SYSTEMS: Pertinent positives and negatives noted in HPI. The rest of the 14-point review of systems is negative. Physical Exam: General: Somewhat toxic, clammy, no distress, appears at stated age Derm: warm, dry, intact Head: atraumatic, normocephalic, symmetric Eyes: EOMI, anicteric sclera Mouth: no lip lesion, mucus membranes moist Cardiovascular: S1 S2 reg, no murmur, rubs, or gallops Lungs: CTA bilateral, no rales, no accessory muscle use Abdominal: soft, non-tender to palpataion, no appreciable organomegaly Extremities: no gross muscle atrophy, no edema, no contractures; left-sided weakness secondary to previous CVA, wheelchair-bound Neuro: Alert, Oriented, CNII-XII grossly intact, gait normal Psych: well appearing, appropriate affect Assessment and plan 64-year-old man with PMH of CVA with left-sided deficits wheelchair-bound, hypertension, hyperlipidemia, bilateral lower extremity peripheral neuropathy, CKD stage IIIa, chronic indwelling Mclean catheter for urinary retention, history of urosepsis and asthma who presents to the emergency department with his caregiver who noted a fever and dark urine for the past 2 days. #Sepsis on arrival, possibly secondary to catheter associated UTI likely gram- negative pathogen #Pyrexia, likely secondary to above #Leukocytosis, likely secondary to above #CKD stage IIIa with baseline creatinine 1.31.4 - Temperature 101.1 F on arrival, WBCs 12.27 - Urinalysis positive for leukocyte esterase, negative for nitrites; denies urinary symptoms, however urine notably darker than usual with history of urosepsis - Received 1 L NS bolus and 2 L LR in the ED - Continue with LR at 130 cc/h - Received 1 dose Rocephin in the ED; continue with Rocephin 2 g every 24 hours (total of 7 days if symptoms resolve quickly) - CT abdomen/pelvis ordered, currently pending - Urine and blood culture ordered, currently pending Chronic conditions: #History of CVA with left-sided residual deficits #Bilateral lower extremity peripheral neuropathy #Hypertension #Hyperlipidemia - Patient is wheelchair-bound; activity order placed to have the patient turn every 2 hours as well as as needed - Fall precautions - Continue home medications once verified by pharmacy GI prophylaxis: None DVT prophylaxis: Heparin 5000 units every 12 hours The patient is admitted with an anticipated more than than 2 midnight stay for evaluation of sepsis of unknown origin CODE STATUS: Full code Discussed with: Patient Anticipated discharge place: Pending clinical course Dictation was produced using [employer] dictation software. please excuse any grammatical, word or spelling errors. Popeye Huizar MD PGY-1 IM I have seen and evaluated the patient today. I Discussed the case with the resident and agree with the resident's findings I edited the assessment and plan as necessary as documented in the resident's note. Past Medical History Past Medical History: Asthma, CVA/TIA, Hyperlipidemia, Hypertension Additional Past Medical History / Comment(s): peripheral neuropathy marko LE, retinoneuropathy, urine retention, chronic indwelling catheter, CVA w/residual weakness to the lt. side, no recent issues with asthma-no inhalers, uses electric wheelchair requires transfer assistance which caregiver will do, kidney stones, recent adm. to [facility] for urosepsis, no current skin breakdown History of Any Multi-Drug Resistant Organisms: None Reported Past Surgical History: Orthopedic Surgery, Tonsillectomy Additional Past Surgical History / Comment(s): toes amputated right foot after traumatic injury, cystoscopy, Left hip surgery. Past Anesthesia/Blood Transfusion Reactions: Postoperative Nausea & Vomiting (PONV) Additional Past Anesthesia/Blood Transfusion Reaction / Comment(s): occasional dizziness & nausea from anesthesia Past Psychological History: No Psychological Hx Reported Smoking Status: Never smoker - Past Family History Father Family Medical History: Cancer Additional Family Medical History / Comment(s): Father at age 41 from leukemia. Mother Family Medical History: CVA/TIA, Diabetes Mellitus, Hypertension Additional Family Medical History / Comment(s): Mother in her 70s from pneumonia. Sister(s) Additional Family Medical History / Comment(s): Patient has 2 sisters with no major medical problems. Patient does not have any brothers, no children. Medications and Allergies Home Medications Medication Instructions Recorded Confirmed Type Pravastatin Sodium [Pravachol] 40 mg PO HS@209911/11/15 02/27/24 History Tamsulosin [Flomax] 0.4 mg PO HS@209911/11/15 02/27/24 History Venlafaxine HCl [Effexor] 37.5 mg PO BID@899,209911/11/15 02/27/24 History lisinopriL [Zestril] 20 mg PO DAILY@00 11/11/15 02/27/24 History Alendronate Sodium [Fosamax] 70 mg PO COBURN 01/20/22 02/27/24 History hydrALAZINE HCL [Apresoline] 50 mg PO BID@899,209901/20/22 02/27/24 History Aloe Lax 1 tab PO BID@0900,209910/10/23 02/27/24 History Aspirin 81 mg PO DAILY@0900 10/10/23 02/27/24 History Calcium/Magnesium (Unknown) 1 tab PO DAILY@0900 10/10/23 01/27/24 History Cholecalciferol [Vitamin D3 (25 25 mcg PO DAILY@0900 10/10/23 02/27/24 History Mcg = 1000 Iu)] Labetalol HCl 300 mg PO BID@0900,209910/10/23 02/27/24 History polyethylene glycoL 3350 [Miralax] 17 gm PO DAILY PRN 10/10/23 02/27/24 History Famotidine [Pepcid] 20 mg PO DAILY PRN 01/27/24 02/27/24 History Multivit-Mins/Iron/Folic/Lycop 1 tab PO BID@0900,209901/27/24 02/27/24 History [Centrum Men's Tablet] amLODIPine [Norvasc] 5 mg PO DAILY@89901/27/24 02/27/24 History Allergies Allergy/AdvReac Type Severity Reaction Status Date / Time cashew nut Allergy Anaphylaxis Verified 02/28/24 08:47 shellfish derived [Shellfish] Allergy Anaphylaxis Verified 02/28/24 08:47 Physical Exam Vitals: Vital Signs Temp Pulse Resp BP Pulse Ox 09/19/24 23:32 99.4 F 74 18 114/69 97 09/19/24 20:58 101.6 F H 66 20 114/57 95 09/19/24 20:29 101.1 F H 96 18 136/70 97 Intake and Output 09/19/24 09/19/24 09/20/24 14:59 22:59 06:59 Other: Weight 86.183 kg Results CBC & Chem 7: 09/19/24 21:29 09/19/24 21:29 Labs: Abnormal Lab Results - Last 24 Hours (Table) 09/19/24 09/19/24 09/19/24 Range/Units 21:29 21:29 22:45 WBC 12.27 H (4.50-10.00) 10*3/uL RBC 4.36 L (4.40-5.60) 10*6/uL MPV 8.8 L (9.5-12.2) fL Immature Gran # 0.06 H (0.00-0.04) 10*3/uL Neutrophils # 10.12 H (1.80-7.70) 10*3/uL Monocytes # 1.09 H (0.20-1.00) 10*3/uL Eosinophils # 0.01 L (0.04-0.35) 10*3/uL Sodium 136 L (137-145) mmol/L BUN 25 H (9-20) mg/dL Creatinine 1.44 H (0.66-1.25) mg/dL Urine Protein 1+ H (Negative) Urine Ketones 1+ H (Negative) Urine Blood Small H (Negative) Ur Leukocyte Esterase Large H (Negative) Urine RBC 6 H (0-5) /hpf Urine WBC >182 H (0-5) /hpf Urine WBC Clumps Many H (None) /hpf Urine Bacteria Many H (None) /hpf Urine Mucus Rare H (None) /hpf
--- NOTE | 2024-09-20 04:40 | CT ---
EXAM: CT Abdomen and Pelvis Without Intravenous Contrast CLINICAL HISTORY: Sepsis, hx stones TECHNIQUE: Axial computed tomography images of the abdomen and pelvis without intravenous contrast. CTDI is 14.8 mGy and DLP is 883.9 mGy-cm. This CT exam was performed using one or more of the following dose reduction techniques: automated exposure control, adjustment of the mA and/or kV according to patient size, and/or use of iterative reconstruction technique. COMPARISON: CT renal stone 01/31/2024 FINDINGS: Lung bases: Unremarkable. No mass. No consolidation. ABDOMEN: Liver: Nodular contour of liver is concerning for cirrhosis. Gallbladder and bile ducts: Cholelithiasis. The gallbladder is decompressed. No ductal dilation. Pancreas: Unremarkable. No ductal dilation. Spleen: Nonspecific splenomegaly. The spleen measures 14.0 cm. No mass. Adrenals: Unremarkable. No mass. Kidneys and ureters: Bilateral nonobstructing renal calculi are present. Simple appearing bilateral renal cysts are present, no follow up is needed. No definitive hydronephrosis. Stomach and bowel: Diverticulosis. No obstruction. No mucosal thickening. PELVIS: Appendix: No findings to suggest acute appendicitis. Bladder: Thickening of the bladder wall is concerning for cystitis. No stones. Reproductive: Unremarkable as visualized. ABDOMEN and PELVIS: Intraperitoneal space: Unremarkable. No free air. No significant fluid collection. Bones/joints: There are degenerative changes of the spine. No acute fracture. There is a left hip arthroplasty. No dislocation. Soft tissues: Unremarkable. Vasculature: Mild atherosclerosis. No aneurysm. Lymph nodes: Unremarkable. No enlarged lymph nodes. IMPRESSION: 1. Thickening of the bladder wall is concerning for cystitis. No definitive hydronephrosis. 2. Bilateral nonobstructing renal calculi are present. 3. Nodular contour of liver is concerning for cirrhosis. 4. Nonspecific splenomegaly. Question portal hypertension. 5. Cholelithiasis. The gallbladder is decompressed. 6. Diverticulosis.
[2024-09-20 06:54] LABS: Basophils # (A) 0.04 10*3/uL (0.00-0.10); Basophils % (A) 0.5 %; Eosinophils # (A) 0.06 10*3/uL (0.04-0.35); Eosinophils % (A) 0.8 %; HGB 11.4 g/dL (13.0-17.0); Lymphocytes # (A) 1.67 10*3/uL (0.90-5.00); Lymphocytes % (A) 20.9 %; MCH 30.7 pg (27.0-32.0); MCHC 33.5 g/dL (32.0-37.0); MCV 91.6 fL (80.0-97.0); Mean Platelet Volume 8.9 fL (9.5-12.2); Monocytes # (A) 0.97 10*3/uL (0.20-1.00); Monocytes % (A) 12.2 %; Neutrophils # (A) 5.22 10*3/uL (1.80-7.70); Neutrophils % (A) 65.3 %; Platelet Count 142 10*3/uL (140-440); RBC 3.71 10*6/uL (4.40-5.60); RDW 13.7 % (11.5-14.5); WBC 7.98 10*3/uL (4.50-10.00)
[2024-09-20 07:12] LABS: African American GFR (CKD) 77 (>60 ml/min/1.73 sqM); Anion Gap 7 mmol/L; Blood Urea Nitrogen 23 mg/dL (9-20); Calcium 8.8 mg/dL (8.4-10.2); Carbon Dioxide 24 mmol/L (22-30); Chloride 107 mmol/L (98-107); Glucose 80 mg/dL (74-99); Non-African American GFR(CKD) 66 (>60 ml/min/1.73 sqM); Potassium 3.8 mmol/L (3.5-5.1); Sodium 138 mmol/L (137-145)
[2024-09-20] MEDS: HEPARIN SODIUM,PORCINE 5,000 UNIT/ML 1 ML VIAL SQ SCH (09:52)
--- NOTE | 2024-09-20 13:23 | P.PN ---
Subjective Progress Note Date: 09/20/24 No new complaints. No events overnight. Gen: In NAD, non-toxic HEENT: normocephalic, atraumatic, hearing acuity is intant, mucous membranes moist CVS: perfusing all extremities well, no pitting edema, Respiratory: symmetric chest expansion, no accessory muscle use, GI: soft, NTTP, ND, : no suprapubic tenderness, no CVA tenderness MSK/Derm: no rashes, cyanosis Neuro: CN II-XII intact, no motor weakness, Psych: cooperative, euthymic mood, judgment and insight is intact Hospital course: 64-year-old man with PMH of CVA with left-sided deficits wheelchair-bound, hypertension, hyperlipidemia, bilateral lower extremity peripheral neuropathy, history of renal calculi, CKD stage IIIa, chronic indwelling Mclean catheter for urinary retention, history of urosepsis and asthma who presents to the emergency department with his caregiver who noted a fever and dark urine for the past 2 days. Monday of this week when he followed up with Dr. Carson. Labratory review: - WBCs 12.27, hemoglobin 13.3, hematocrit 39.6, platelet 181; sodium 136, potassium 4.2, bicarb 24, BUN 25, creatinine 1.44, calcium 9.2, total bilirubin 1.3, AST 235, ALT 25, alkaline phosphatase 76 - Urinalysis 1+ protein, 1+ blood, large amount of leukocyte esterase, > 182 WBCs, many urine bacteria Imaging: -Chest x-ray done in the ER -CT head done showed no acute intracranial process -CTA head and neck done showed no significant stenosis, aneurysm or thrombus in the intracranial circulation -EKG done in the ER showed heart rate of , no ST segment elevation or depression seen, no T-wave inversions seen. Vitals: - On arrival: Temperature 101.1 F, blood pressure 136/70, heart rate 96, respiratory rate 18, SpO2 97% on room air - Most recently: Temperature 99.4 F, blood pressure 114/69, heart rate 74, respiratory 18, SpO2 97% on room air Patient admitted to internal medicine service Assessment and plan 64-year-old man with PMH of CVA with left-sided deficits wheelchair-bound, hypertension, hyperlipidemia, bilateral lower extremity peripheral neuropathy, CKD stage IIIa, chronic indwelling Mclean catheter for urinary retention, history of urosepsis and asthma who presents to the emergency department with his caregiver who noted a fever and dark urine for the past 2 days. #Sepsis on arrival, possibly secondary to catheter associated UTI likely gram- negative pathogen #Pyrexia, likely secondary to above #Leukocytosis, likely secondary to above #CKD stage IIIa with baseline creatinine 1.31.4 - Temperature 101.1 F on arrival, WBCs 12.27 - Urinalysis positive for leukocyte esterase, negative for nitrites; denies urinary symptoms, however urine notably darker than usual with history of urosepsis - Received 1 L NS bolus and 2 L LR in the ED - Continue with LR at 130 cc/h - Received 1 dose Rocephin in the ED; continue with Rocephin 2 g every 24 hours (total of 7 days if symptoms resolve quickly) - CT abdomen/pelvis ordered, currently pending - Urine and blood culture ordered, currently pending Chronic conditions: #History of CVA with left-sided residual deficits #Bilateral lower extremity peripheral neuropathy #Hypertension #Hyperlipidemia - Patient is wheelchair-bound; activity order placed to have the patient turn every 2 hours as well as as needed - Fall precautions - Continue home medications once verified by pharmacy GI prophylaxis: None DVT prophylaxis: Heparin 5000 units every 12 hours The patient is admitted with an anticipated more than than 2 midnight stay for evaluation of sepsis of unknown origin CODE STATUS: Full code Discussed with: Patient Anticipated discharge place: Pending clinical course Dictation was produced using [employer] dictation software. please excuse any grammatical, word or spelling errors. Objective - Vital Signs Vital signs: Vital Signs Temp 98.1 F 09/20/24 08:57 Pulse 69 09/20/24 08:57 Resp 16 09/20/24 08:57 BP 131/73 09/20/24 08:57 Pulse Ox 96 09/20/24 08:57 FiO2 Intake & Output 09/19/24 09/20/24 09/20/24 18:59 06:59 18:59 Weight 86.183 kg - Labs CBC & Chem 7: 09/20/24 06:14 09/20/24 06:14 Labs: Abnormal Lab Results - Last 24 Hours (Table) 09/19/24 09/19/24 09/19/24 Range/Units 21:29 21:29 22:45 WBC 12.27 H (4.50-10.00) 10*3/uL RBC 4.36 L (4.40-5.60) 10*6/uL Hgb (13.0-17.0) g/dL Hct (39.6-50.0) % MPV 8.8 L (9.5-12.2) fL Immature Gran # 0.06 H (0.00-0.04) 10*3/uL Neutrophils # 10.12 H (1.80-7.70) 10*3/uL Monocytes # 1.09 H (0.20-1.00) 10*3/uL Eosinophils # 0.01 L (0.04-0.35) 10*3/uL Sodium 136 L (137-145) mmol/L BUN 25 H (9-20) mg/dL Creatinine 1.44 H (0.66-1.25) mg/dL Urine Protein 1+ H (Negative) Urine Ketones 1+ H (Negative) Urine Blood Small H (Negative) Ur Leukocyte Esterase Large H (Negative) Urine RBC 6 H (0-5) /hpf Urine WBC >182 H (0-5) /hpf Urine WBC Clumps Many H (None) /hpf Urine Bacteria Many H (None) /hpf Urine Mucus Rare H (None) /hpf 09/20/24 09/20/24 Range/Units 06:14 06:14 WBC (4.50-10.00) 10*3/uL RBC 3.71 L (4.40-5.60) 10*6/uL Hgb 11.4 L (13.0-17.0) g/dL Hct 34.0 L (39.6-50.0) % MPV 8.9 L (9.5-12.2) fL Immature Gran # (0.00-0.04) 10*3/uL Neutrophils # (1.80-7.70) 10*3/uL Monocytes # (0.20-1.00) 10*3/uL Eosinophils # (0.04-0.35) 10*3/uL Sodium (137-145) mmol/L BUN 23 H (9-20) mg/dL Creatinine (0.66-1.25) mg/dL Urine Protein (Negative) Urine Ketones (Negative) Urine Blood (Negative) Ur Leukocyte Esterase (Negative) Urine RBC (0-5) /hpf Urine WBC (0-5) /hpf Urine WBC Clumps (None) /hpf Urine Bacteria (None) /hpf Urine Mucus (None) /hpf
[2024-09-20] MEDS ORDERED: polyethylene glycoL 3350 17 GM POWD.PACK PO PRN (18:46)
[2024-09-20] MEDS ORDERED: FAMOTIDINE 20 MG TAB PO PRN (18:46)
[2024-09-20] MEDS: TAMSULOSIN 0.4 MG CAP.ER.24H PO SCH (21:23)
[2024-09-20] MEDS: LABETALOL 100 MG TAB PO SCH (21:23)
[2024-09-20] MEDS: ACETAMINOPHEN TAB 325 MG TAB PO PRN (21:23)
[2024-09-20] MEDS: PRAVASTATIN SODIUM 40 MG TAB PO SCH (21:23)
[2024-09-20] MEDS: VENLAFAXINE HCL 37.5 MG TAB PO SCH (21:23)
[2024-09-20] MEDS: MULTIVITAMINS, THERA 1 EACH TAB PO SCH (21:23)
[2024-09-21] MEDS: amLODIPine 5 MG TAB PO SCH (08:52)
[2024-09-21] MEDS: ASPIRIN 81 MG PO SCH (08:52)
[2024-09-21] MEDS: CHOLECALCIFEROL 25 MCG (1000 IU) TABLET PO SCH (08:52)
[2024-09-21] MEDS: lisinopriL 20 MG TAB PO SCH (08:52)
--- NOTE | 2024-09-21 13:52 | P.PN ---
Subjective Progress Note Date: 09/21/24 No new complaints. No events overnight. Gen: In NAD, non-toxic HEENT: normocephalic, atraumatic, hearing acuity is intant, mucous membranes moist CVS: perfusing all extremities well, no pitting edema, Respiratory: symmetric chest expansion, no accessory muscle use, GI: soft, NTTP, ND, : no suprapubic tenderness, no CVA tenderness MSK/Derm: no rashes, cyanosis Neuro: CN II-XII intact, no motor weakness, Psych: cooperative, euthymic mood, judgment and insight is intact Hospital course: 64-year-old man with PMH of CVA with left-sided deficits wheelchair-bound, hypertension, hyperlipidemia, bilateral lower extremity peripheral neuropathy, history of renal calculi, CKD stage IIIa, chronic indwelling Mclean catheter for urinary retention, history of urosepsis and asthma who presents to the emergency department with his caregiver who noted a fever and dark urine for the past 2 days. Monday of this week when he followed up with Dr. Carson. Labratory review: - WBCs 12.27, hemoglobin 13.3, hematocrit 39.6, platelet 181; sodium 136, potassium 4.2, bicarb 24, BUN 25, creatinine 1.44, calcium 9.2, total bilirubin 1.3, AST 235, ALT 25, alkaline phosphatase 76 - Urinalysis 1+ protein, 1+ blood, large amount of leukocyte esterase, > 182 WBCs, many urine bacteria Imaging: -Chest x-ray done in the ER -CT head done showed no acute intracranial process -CTA head and neck done showed no significant stenosis, aneurysm or thrombus in the intracranial circulation -EKG done in the ER showed heart rate of , no ST segment elevation or depression seen, no T-wave inversions seen. Vitals: - On arrival: Temperature 101.1 F, blood pressure 136/70, heart rate 96, respiratory rate 18, SpO2 97% on room air - Most recently: Temperature 99.4 F, blood pressure 114/69, heart rate 74, respiratory 18, SpO2 97% on room air Patient admitted to internal medicine service Assessment and plan 64-year-old man with PMH of CVA with left-sided deficits wheelchair-bound, hypertension, hyperlipidemia, bilateral lower extremity peripheral neuropathy, CKD stage IIIa, chronic indwelling Mclean catheter for urinary retention, history of urosepsis and asthma who presents to the emergency department with his caregiver who noted a fever and dark urine for the past 2 days. #Sepsis on arrival, possibly secondary to catheter associated UTI #Pyrexia, likely secondary to above #Leukocytosis, likely secondary to above #CKD stage IIIa with baseline creatinine 1.31.4 - Received 1 L NS bolus and 2 L LR in the ED - Continue with LR at 130 cc/h - Received 1 dose Rocephin in the ED; continue with Rocephin 2 g every 24 hours (total of 7 days if symptoms resolve quickly) - CT abdomen/pelvis ordered = cystitis - Urine and blood culture ordered, UCx = GNB; BCx NGTD Chronic conditions: #History of CVA with left-sided residual deficits #Bilateral lower extremity peripheral neuropathy #Hypertension #Hyperlipidemia - Patient is wheelchair-bound; activity order placed to have the patient turn every 2 hours as well as as needed - Fall precautions - Continue home medications once verified by pharmacy GI prophylaxis: None DVT prophylaxis: Heparin 5000 units every 12 hours The patient is admitted with an anticipated more than than 2 midnight stay for evaluation of sepsis of unknown origin CODE STATUS: Full code Discussed with: Patient Anticipated discharge place: Pending clinical course Dictation was produced using [employer] dictation software. please excuse any grammatical, word or spelling errors. Objective - Vital Signs Vital signs: Vital Signs Temp 98.2 F 09/21/24 07:45 Pulse 86 09/21/24 07:45 Resp 18 09/21/24 07:45 BP 134/74 09/21/24 07:45 Pulse Ox 92 L 09/21/24 07:45 FiO2 Intake & Output 09/20/24 09/21/24 09/21/24 18:59 06:59 18:59 Output Total 1350 975 Balance -1350 -975 Weight 86.183 kg Output: Urine 1350 975 Other: Voiding Method Indwelling Catheter Indwelling Catheter Indwelling Catheter - Labs CBC & Chem 7: 09/20/24 06:14 09/20/24 06:14 Labs: Microbiology - Last 24 Hours (Table) 09/19/24 22:45 Urine Culture - Preliminary Urine,Voided Gram Neg Bacilli 09/19/24 23:56 Blood Culture - Preliminary Blood
--- NOTE | 2024-09-22 15:15 | P.PN ---
Subjective Progress Note Date: 09/22/24 No new complaints. No events overnight. Gen: In NAD, non-toxic HEENT: normocephalic, atraumatic, hearing acuity is intant, mucous membranes moist CVS: perfusing all extremities well, no pitting edema, Respiratory: symmetric chest expansion, no accessory muscle use, GI: soft, NTTP, ND, : no suprapubic tenderness, no CVA tenderness MSK/Derm: no rashes, cyanosis Neuro: CN II-XII intact, no motor weakness, Psych: cooperative, euthymic mood, judgment and insight is intact Hospital course: 64-year-old man with PMH of CVA with left-sided deficits wheelchair-bound, hypertension, hyperlipidemia, bilateral lower extremity peripheral neuropathy, history of renal calculi, CKD stage IIIa, chronic indwelling Mclean catheter for urinary retention, history of urosepsis and asthma who presents to the emergency department with his caregiver who noted a fever and dark urine for the past 2 days. Monday of this week when he followed up with Dr. Carson. Labratory review: - WBCs 12.27, hemoglobin 13.3, hematocrit 39.6, platelet 181; sodium 136, potassium 4.2, bicarb 24, BUN 25, creatinine 1.44, calcium 9.2, total bilirubin 1.3, AST 235, ALT 25, alkaline phosphatase 76 - Urinalysis 1+ protein, 1+ blood, large amount of leukocyte esterase, > 182 WBCs, many urine bacteria Imaging: -Chest x-ray done in the ER -CT head done showed no acute intracranial process -CTA head and neck done showed no significant stenosis, aneurysm or thrombus in the intracranial circulation -EKG done in the ER showed heart rate of , no ST segment elevation or depression seen, no T-wave inversions seen. Vitals: - On arrival: Temperature 101.1 F, blood pressure 136/70, heart rate 96, respiratory rate 18, SpO2 97% on room air - Most recently: Temperature 99.4 F, blood pressure 114/69, heart rate 74, respiratory 18, SpO2 97% on room air Patient admitted to internal medicine service Assessment and plan 64-year-old man with PMH of CVA with left-sided deficits wheelchair-bound, hypertension, hyperlipidemia, bilateral lower extremity peripheral neuropathy, CKD stage IIIa, chronic indwelling Mclean catheter for urinary retention, history of urosepsis and asthma who presents to the emergency department with his caregiver who noted a fever and dark urine for the past 2 days. #Sepsis on arrival, possibly secondary to catheter associated UTI #Pyrexia, likely secondary to above #Leukocytosis, likely secondary to above #CKD stage IIIa with baseline creatinine 1.31.4 - Received 1 L NS bolus and 2 L LR in the ED - Continue with LR at 130 cc/h - Received 1 dose Rocephin in the ED; continue with Rocephin 2 g every 24 hours (total of 7 days if symptoms resolve quickly) - CT abdomen/pelvis ordered = cystitis - Urine and blood culture ordered, UCx = GNB; BCx NGTD Chronic conditions: #History of CVA with left-sided residual deficits #Bilateral lower extremity peripheral neuropathy #Hypertension #Hyperlipidemia - Patient is wheelchair-bound; activity order placed to have the patient turn every 2 hours as well as as needed - Fall precautions - Continue home medications once verified by pharmacy GI prophylaxis: None DVT prophylaxis: Heparin 5000 units every 12 hours The patient is admitted with an anticipated more than than 2 midnight stay for evaluation of sepsis of unknown origin CODE STATUS: Full code Discussed with: Patient Anticipated discharge place: Pending clinical course Dictation was produced using [employer] dictation software. please excuse any grammatical, word or spelling errors. Objective - Vital Signs Vital signs: Vital Signs Temp 98.1 F 09/22/24 13:53 Pulse 62 09/22/24 13:53 Resp 18 09/22/24 13:53 BP 149/77 09/22/24 13:53 Pulse Ox 100 09/22/24 13:53 FiO2 Intake & Output 09/21/24 09/22/24 09/22/24 18:59 06:59 18:59 Intake Total 402 Output Total 1600 4000 850 Balance -1600 -4000 -448 Intake: Oral 402 Output: Urine 1600 4000 850 Other: Voiding Method Indwelling Catheter Indwelling Catheter Indwelling Catheter - Labs CBC & Chem 7: 09/20/24 06:14 09/20/24 06:14 Labs: Microbiology - Last 24 Hours (Table) 09/19/24 22:45 Urine Culture - Final Urine,Voided Klebsiella oxytoca Escherichia coli 09/19/24 23:56 Blood Culture - Preliminary Blood
[2024-09-22] MEDS ORDERED: NON FORMULARY DRUG (Alendronate Sodium [Fosamax] 70 MG Tablet) PO SCH (18:46)
[2024-09-22 21:26] VITALS: RESP 16
[2024-09-23 07:23] VITALS: BP 106/62; PULSE 62; TEMP 97.3
[2024-09-23] MEDS: CEFDINIR 300 MG CAP PO SCH (09:37)
--- NOTE | 2024-09-23 09:37 | P.DS ---
Providers Date of admission: 09/20/24 14:27 Expected date of discharge: 09/23/24 Attending physician: Justin Smith MD Primary care physician: Pillo Quintana [facility] Course: #Sepsis on arrival, possibly secondary to catheter associated UTI #Pyrexia, likely secondary to above #Leukocytosis, likely secondary to above #CKD stage IIIa with baseline creatinine 1.31.4 Chronic conditions: #History of CVA with left-sided residual deficits #Bilateral lower extremity peripheral neuropathy #Hypertension #Hyperlipidemia Gen: In NAD, non-toxic HEENT: normocephalic, atraumatic, hearing acuity is intant, mucous membranes moist CVS: perfusing all extremities well, no pitting edema, Respiratory: symmetric chest expansion, no accessory muscle use, GI: soft, NTTP, ND, : no suprapubic tenderness, no CVA tenderness MSK/Derm: no rashes, cyanosis Neuro: CN II-XII intact, no motor weakness, Psych: cooperative, euthymic mood, judgment and insight is intact Hospital course: 64-year-old man with PMH of CVA with left-sided deficits wheelchair-bound, hypertension, hyperlipidemia, bilateral lower extremity peripheral neuropathy, history of renal calculi, CKD stage IIIa, chronic indwelling Mclean catheter for urinary retention, history of urosepsis and asthma who presents to the emergency department with his caregiver who noted a fever and dark urine for the past 2 days. Monday of this week when he followed up with Dr. Carson. Labratory review: - WBCs 12.27, hemoglobin 13.3, hematocrit 39.6, platelet 181; sodium 136, potassium 4.2, bicarb 24, BUN 25, creatinine 1.44, calcium 9.2, total bilirubin 1.3, AST 235, ALT 25, alkaline phosphatase 76 - Urinalysis 1+ protein, 1+ blood, large amount of leukocyte esterase, > 182 WBCs, many urine bacteria Imaging: -Chest x-ray done in the ER -CT head done showed no acute intracranial process -CTA head and neck done showed no significant stenosis, aneurysm or thrombus in the intracranial circulation -EKG done in the ER showed heart rate of , no ST segment elevation or depression seen, no T-wave inversions seen. Vitals: - On arrival: Temperature 101.1 F, blood pressure 136/70, heart rate 96, respiratory rate 18, SpO2 97% on room air - Most recently: Temperature 99.4 F, blood pressure 114/69, heart rate 74, respiratory 18, SpO2 97% on room air Patient admitted to internal medicine service. CT A/P was c/w cystitis. He was started on abx for UTI and UCx grew e coli and klebsiella, sensitive to cephalosporins. His fever profile improved and he was discharged home with cefdinir 300mg BID for an additional 5 days. he has f/u with Urology, PCP. I spent 38 min on this discharge. Patient Condition at Discharge: Good Plan - Discharge Summary New Discharge Prescriptions: New Acetaminophen Tab [Tylenol] 650 mg PO Q6HR PRN tab PRN Reason: Mild Pain Or Fever > 100.5 Cefdinir [Omnicef] 300 mg PO BID #10 cap Continue lisinopriL [Zestril] 20 mg PO DAILY@0900 Tamsulosin [Flomax] 0.4 mg PO HS@2100 Venlafaxine HCl [Effexor] 37.5 mg PO BID@0900,2100 Pravastatin Sodium [Pravachol] 40 mg PO HS@2100 Calcium/Magnesium (Unknown) 1 tab PO DAILY@0900 Aloe Lax 1 tab PO BID@0900,2100 polyethylene glycoL 3350 [Miralax] 17 gm PO DAILY PRN PRN Reason: Constipation Multivit-Mins/Iron/Folic/Lycop [Centrum Men's Tablet] 1 tab PO BID@0900,2100 hydrALAZINE HCL [Apresoline] 50 mg PO BID@0900,2100 Alendronate Sodium [Fosamax] 70 mg PO COBURN Cholecalciferol [Vitamin D3 (25 Mcg = 1000 Iu)] 25 mcg PO DAILY@0900 Aspirin 81 mg PO DAILY@0900 Labetalol HCl 300 mg PO BID@0900,2100 amLODIPine [Norvasc] 5 mg PO DAILY@0900 Famotidine [Pepcid] 20 mg PO DAILY PRN PRN Reason: ACID REFLUX Discharge Medication List Pravastatin Sodium [Pravachol] 40 mg PO HS@209911/11/15 [History] Tamsulosin [Flomax] 0.4 mg PO HS@2100 11/11/15 [History] Venlafaxine HCl [Effexor] 37.5 mg PO BID@0900,2100 11/11/15 [History] lisinopriL [Zestril] 20 mg PO DAILY@00 11/11/15 [History] Alendronate Sodium [Fosamax] 70 mg PO COBURN 01/20/22 [History] hydrALAZINE HCL [Apresoline] 50 mg PO BID@0900,209901/20/22 [History] Aloe Lax 1 tab PO BID@0900,209910/10/23 [History] Aspirin 81 mg PO DAILY@89910/10/23 [History] Calcium/Magnesium (Unknown) 1 tab PO DAILY@89910/10/23 [History] Cholecalciferol [Vitamin D3 (25 Mcg = 1000 Iu)] 25 mcg PO DAILY@89910/10/23 [History] Labetalol HCl 300 mg PO BID@0900,209910/10/23 [History] polyethylene glycoL 3350 [Miralax] 17 gm PO DAILY PRN 10/10/23 [History] Famotidine [Pepcid] 20 mg PO DAILY PRN 01/27/24 [History] Multivit-Mins/Iron/Folic/Lycop [Centrum Men's Tablet] 1 tab PO BID@0900,209901/27/24 [History] amLODIPine [Norvasc] 5 mg PO DAILY@89901/27/24 [History] Acetaminophen Tab [Tylenol] 650 mg PO Q6HR PRN tab 09/23/24 [Rx] Cefdinir [Omnicef] 300 mg PO BID #10 cap 09/23/24 [Rx] Follow up Appointment(s)/Referral(s): Pillo Quintana DO [Primary Care Provider] - 1-2 days Discharge Disposition: HOME SELF-CARE
== END 2024-09-23 12:11 | disposition home health service (06) | DRG 698 ==
LOC: EC 20:05 → 6NMEDSUR 09-20 01:01 → OBSVTOIN 09-20 14:27 → 6NMEDSUR 09-20 15:14
PROVIDERS: ADMIT Internal Medicine; ATTEND Internal Medicine
DX: T83.511A Infection and inflammatory reaction due to indwelling urethral catheter, initial encounter (principal); A41.9 Sepsis, unspecified organism; N18.31 Chronic kidney disease, stage 3a; I12.9 Hypertensive chronic kidney disease with stage 1 through stage 4 chronic kidney disease, or unspecified chronic kidney disease; I69.30 Unspecified sequelae of cerebral infarction; N30.90 Cystitis, unspecified without hematuria; J45.909 Unspecified asthma, uncomplicated; G62.9 Polyneuropathy, unspecified; R33.9 Retention of urine, unspecified; E78.5 Hyperlipidemia, unspecified; B96.20 Unspecified Escherichia coli [E. coli] as the cause of diseases classified elsewhere; Z87.442 Personal history of urinary calculi; Z99.3 Dependence on wheelchair; Z79.82 Long term (current) use of aspirin; Z91.018 Allergy to other foods; Z79.899 Other long term (current) drug therapy; Z87.440 Personal history of urinary (tract) infections
CPT/HCPCS: 36415; 74176; 80048; 80053; 81001; 83605; 85025; 87040; 87077; 87086; 87186; 96361; 96365; 96366; 96372; 99285